=== PATIENT | female | born 1960 | race Caucasian/White ===

== ENCOUNTER → 2020-12-25 09:37 | Outpatient (BNVA) | payer OTHER, SELFPAY | PROVIDERS: Visit Provider Physician Assistant | DX: M77.10 Lateral epicondylitis, unspecified elbow (principal) | CPT/HCPCS: 20551; J1020 ==

== ENCOUNTER 2022-08-01 16:08 | Inpatient (IN) | payer OTHER, SELFPAY ==
[2022-08-01] VITALS (9 sets, daily range): BP systolic 130–173; BP diastolic 74–109; PULSE 74–117; RESP 15–94; TEMP 37.2–37.3; O2SAT 94–98; BMI 34.3
--- NOTE | ~2022-08-01 | XR_ITS ---
EXAMINATION: XR CHEST CLINICAL INFORMATION: Chest pain COMPARISON: Chest x-ray 11/24/2010 TECHNIQUE: 2 views of the chest were obtained. FINDINGS: Lungs are clear. No pulmonary vascular congestion. There is no pleural effusion. The heart size is normal. The cardiac and mediastinal contours are normal. There are multilevel degenerative changes of dorsal spine. Surgical clips in the upper abdomen XR/XR chest 2V IMPRESSION: Unremarkable examination.
--- NOTE | 2022-08-01 16:17 | ECG_ITS ---
Test Reason : CHEST PAIN Blood Pressure : / mmHG Vent. Rate : 088 BPM Atrial Rate : 088 BPM P-R Int : 156 ms QRS Dur : 082 ms QT Int : 372 ms P-R-T Axes : 054 048 044 degrees QTc Int : 450 ms Normal sinus rhythm Normal ECG When compared with ECG of 24-NOV-2010 19:00, ST no longer elevated in Inferior leads Referred By: Emmy Ewing Electronically Signed By:KERI POOLE MD
--- NOTE | 2022-08-01 16:18 | ED_ITS ---
HPI - Chest Pain General Chief Complaint: Chest Pain <ZIA Castrejon - Last Filed: 08/01/22 22:10> Stated Complaint: chest pain <ZIA Castrejon - Last Filed: 08/01/22 22:10> Time Seen by Provider: 08/01/22 17:19 <ZIA Castrejon - Last Filed: 08/01/22 22:10> Source: patient <ZIA Castrejon Last Filed: 08/01/22 22:10> Mode of arrival: ambulatory <ZIA Castrejon - Last Filed: 08/01/22 22:10> Limitations: no limitations <ZIA Castrejon Last Filed: 08/01/22 22:10> History of Present Illness HPI narrative: Patient is a 61 year old assigned female at with a history of high cholesterol presenting to the emergency department today with chest pain. Patient states that over the last 3 days she has had central chest pain that feels like an elephant on her chest. Patient states that her father at 43 f rom a heart attack and her mother had a heart attack at 68. Patient states that she has a history of high cholesterol and was taking medication for it but recently stopped about a month ago. Patient states that the pain in her chest is not getting better even after taking aspirin and tums. Patient denies any dizziness, lightheadedness, abdominal pain, nausea, vomiting, fever, chills, blurry vision, double vision, loss of vision, difficulty breathing, shortness of breath, back pain, night sweats, pain with urination, increased urinary frequency, increased urinary urgency, blood in her urine or stool, syncope or a near syncopal episode, recent trauma or falls, bowel incontinence, bladder incon tinence, bowel retention, bladder retention, or any other complaints at this time. <ZIA Castrejon - Last Filed: 08/01/22 22:10> Patient is a 61 year old assigned female at with a history of high cholesterol presenting to the emergency department today with chest pain. Patient states that over the last 3 days she has had central chest pain that feels like an elephant on her chest. Patient states that her father at 43 from a heart attack and her mother had a heart attack at 68. Patient states that she has a history of high cholesterol and was taking medication for it but recently stopped about a month ago. Patient states that the pain in her chest is not getting better even after taking aspirin and tums. Patient denies any dizziness, lightheadedness, abdominal pain, nausea, vomiting, fever, chills, blurry vision, double vision, loss of vision, difficulty breathing, shortness of breath, back pain, night sweats, pain with urination, increased urinary frequency, increased urinary urgency, blood in her urine or stool, syncope or a near syncopal episode, recent trauma or falls, bowel incontinence, bladder incontinence, bowel retention, bladder retention, or any other complaints at this time. Dr Powell's Note 61-year-old female, everyday smoker, has not been to a physician in years, c omes in with significant chest pressure that was intermittent yesterday and associated with some mild nausea, shortness of breath but denies any fever, chills, vomiting or GI or symptoms. Patient denies any recent travel, calf swelling, and states that today the chest pain changed in became more constant in nature and she states that feels like ?the worst acid reflux she has ever had in her life?. She denies any sore throat, cough and denies any association with deep inspiration or movement. In addition, there is no association with supine or sitting up. <Arianne Powell MD - Last Filed: 08/01/22 21:21> complaint: chest pain <ZIA Castrejon - Last Filed: 08/01/22 22:10> Onset (ago): day(s) (3) <ZIA Castrejon - Last Filed: 08/01/22 22:10> Timing of current episode: constant <ZIA Castrejon - Last Filed: 08/01/22 22:10> Prior episodes: No <ZIA Castrejon - Last Filed: 08/01/22 22:10> Onset: during rest <ZIA Castrejon Last Filed: 08/01/22 22:10> Pain location: substernal <ZIA Castrejon - Last Filed: 08/01/22 22:10> Pain radiation: none <ZIA Castrejon Last Filed: 08/01/22 22:10> Severity: mild <ZIA Castrejon - Last Filed: 08/01/22 22:10> Pain scale (0-10): 5 <ZIA Castrejon - Last Filed: 08/01/22 22:10> Quality: heaviness <ZIA Castrejon - Last Filed: 08/01/22 22:10> Relieving factors: nothing <ZIA Castrejon - Last Filed: 08/01/22 22:10> Exacerbating factors: nothing <ZIA Castrejon - Last Filed: 08/01/22 22:10> Treatment prior to arrival: aspirin <ZIA Castrejon - Last Filed: 08/01/22 22:10> Risk Factors Coronary artery disease risk factors: smoking history, hyperlipidemia and family history of CAD before age 50 <ZIA Castrejon - Last Filed: 08/01/22 22:10> Related Data Home Medications: Home Medications Medication Instructions Recorded Confirmed atorvastatin 10 mg tablet 10 mg PO DAILY 12/25/20 08/01/22 <ZIA Castrejon - Last Filed: 08/01/22 22:10> Allergies/Adverse Reactions: Allergies Allergy/AdvReac Type Severity Reaction Status Date / Time No Known Allergies Allergy Mild UNKNOWN Verified 12/25/20 09:49 <ZIA Castrejon - Last Filed: 08/01/22 22:10> Review of Systems Review of Systems: Pertinent positives and negatives as stated in HPI 10 point review of systems is otherwise negative. <Arianne Powell MD - Last Filed: 08/01/22 21:21> Constitutional: Constitutional: Reports no additional constitutional complaints, Denies chills, Denies fever(s) and Denies night sweats <ZIA Castrejon - Last Filed: 08/01/22 22:10> Eyes: Eyes: Reports no additional eye complaints, Denies blurry vision, Denies change in vision, Denies diplopia, Denies eye discharge, Denies loss of vision and Denies eye pain <ZIA Castrejon - Last Filed: 08/01/22 22:10> ENT: Denies dizziness <ZIA Castrejon - Last Filed: 08/01/22 22:10> Cardiovascular: Cardiovascular: Reports no additional cardiovascular complai nts, Reports chest pain, Denies lightheadedness, Denies Loss of Consciousness and Denies dyspnea <ZIA Castrejon - Last Filed: 08/01/22 22:10> Respiratory: Respiratory: Reports no additional respiratory complaints and Denies dyspnea <ZIA Castrejon - Last Filed: 08/01/22 22:10> Gastrointestinal: Gastrointestinal: Reports no additional gastrointestinal complaints, Denies abdominal pain, Denies melena, Denies hematochezia, Denies change in bowel habits and Denies change in stool character <ZIA Castrejon - Last Filed: 08/01/22 22:10> Genitourinary: Genitourinary: Denies hematuria, Denies urinary frequency, Denies dysuria, Denies urinary incontinence, Denies urinary hesitancy and Denies urinary urgency <ZIA Castrejon - Last Filed: 08/01/22 22:10> Musculoskeletal: Musculoskeletal: Reports no additional musculoskeletal complaints, Denies numbness and Denies tingling <ZIA Castrejon - Last Filed: 08/01/22 22:10> Neurologic: Denies dizziness, Denies loss of vision, Denies numbness and Denies tingling <ZIA Castrejon - Last Filed: 08/01/22 22:10> Psychiatric: Psychiatric: Reports no additional psychiatric complaints <ZIA Castrejon - Last Filed: 08/01/22 22:10> Endocrine: Endocrine: Reports no additional endocrine complaints <ZIA Castrejon - Last Filed: 08/01/22 22:10> Hematologic/Lymphatic: Hematologic/Lymphatic: Reports no additional hematologic/lymphatic complaints <ZIA Castrejon - Last Filed: 08/01/22 22:10> Allergic/Immunologic: Allergic/Immunologic: Reports no additional allergic/immunologic complaints <ZIA Castrejon - Last Filed: 08/01/22 22:10> PMFSH Past Medical History Attestation statement: The following information was validated with the patient. 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 GENERAL: Well developed, well nourished, in no acute distress. HEAD: Normocephalic/atraumatic EYES: PERRLA, EOMI EARS: Ext canals without abnormality OROPHARYNX: no oral lesions noted, posterior pharynx clear LUNGS: Normal breath sounds. No adventitious sounds or accessory muscle use. SpO2<98> CARDIOVASCULAR: Regular rate and rhythm without noted murmurs, no JVD or lower extremity edema. ABDOMEN: Soft, non-tender, non-distended with bowel sounds. MUSCULOSKELETAL: No tenderness, deformities, or effusions noted on gross in spection. EXTREMITIES: No cyanosis, clubbing or edema. SKIN: Inspection of the skin reveals no rashes NEUROLOGIC: Alert and oriented x 4. Strength and sensation to light touch were grossly intact x 4. <Arianne Powell MD - Last Filed: 08/01/22 21:21> Const: General: cooperative, no acute distress, alert and awake <Emmy Ewing PA - Last Filed: 08/01/22 22:10> Nutritional Appearance: well nourished <Emmy Ewing PA - Last Filed: 08/01/22 22:10> Orientation/consciousness: patient oriented x3 <Emmy Ewing PA - Last Filed: 08/01/22 22:10> Limitations: no limitations <Emmy Ewing PA - Last Filed: 08/01/22 2 2:10> HEENT: Head: Yes normal to inspection and Yes atraumatic <Emmy Ewing PA - Last Filed: 08/01/22 22:10> Ears: hearing grossly normal bilaterally and external ears normal <Emmy Ewing PA - Last Filed: 08/01/22 22:10> General nose exam: Normal external nose present, no nasal discharge noted and no epistaxis <Emmy Ewing PA - Last Filed: 08/01/22 22:10> Face and sinus: Yes normal facial exam, No abrasion and No laceration <Emmy Ewing PA - Last Filed: 08/01/22 22:10> Mouth: Normal oral and palatal mucosa present, no drooling and no muffled voice <Emmy Ewing PA - Last Filed: 08/01/22 22:10> Eyes: General: appearance normal, both eyes and all related structures <Emmy Ewing PA - Last Filed: 08/01/22 22:10> Periorbital: periorbital findings normal <Emmy Ewing PA - Last Filed: 08/01/22 22:10> Eyelids: Yes eyelids normal <Emmy Ewing PA - Last Filed: 08/01/22 2 2:10> Conjunctivae: conjunctivae normal <Emmy Ewing PA - Last Filed: 08/01/22 22:10> Pupils: Equal, round and reactive pupils present <Emmy Ewing PA - Last Filed: 08/01/22 22:10> EOM: EOMs intact bilaterally <Emmy Ewing PA - Last Filed: 08/01/22 22:10> Neck: Neck: Yes normal visual inspection, Yes full ROM and Yes no lymphadenopathy <Emmy Ewing PA - Last Filed: 08/01/22 22:10> Chest: Chest palpation & inspection: normal inspection of the chest <Fortino Ewing PA - Last Filed: 08/01/22 22:10> Resp: Effort & Inspection: normal respiratory effort and able to speak in complete sentences <Emmy Ewing PA - Last Filed: 08/01/22 22:10> Auscultation: clear to auscultation bilaterally <Emmy Ewing PA - Last Filed: 08/01/22 22:10> Cardio: Rate: regular rate <Emmy Ewing PA - Last Filed: 08/01/22 22:10> Rhythm: regular rhythm <Emmy Ewing PA - Last Filed: 08/01/22 22:10> GI: Inspection: Yes normal to inspection <Emmy Ewing PA - Last Filed: 08/01/22 22:10> Neuro: General: patient oriented x3 and moves all extremities <Emmy Ewing PA - Last Filed: 08/01/22 22:10> Cranial nerves: Yes Equal, round and reactive pupils present <Emmy Ewing PA - Last Filed: 08/01/22 22:10> Cognition (Neuro): normal cognition <Emmy Ewing PA - Last Filed: 08/01/22 22:10> Motor exam (neuro): 5/5 motor strength present throughout <Emmy Ewing PA - Last Filed: 08/01/22 22:10> Sensory Exam: Normal double simultaneous stimulation for sensation <Emmy Ewing PA - Last Filed: 08/01/22 22:10> Coordination: [id number] test normal <Emmy Ewing PA - Last Filed: 08/01/22 22:10> Extrem: General: Yes normal to inspection, Yes full ROM and Yes capillary refill normal <Emmy Ewing PA - Last Filed: 08/01/22 22:10> Psych: Appearance: grossly normal <Emmy Ewing PA - Last Filed: 08/01/22 22:10> Mental Status: mental status grossly normal <Emmy Ewing PA - Last Filed: 08/01/22 22:10> Affect: normal affect <ZIA Castrejon - Last Filed: 08/01/22 22:10> Attitude: cooperative <ZIA Castrejon - Last Filed: 08/01/22 22:10> Thought process: Normal thought process present <ZIA Castrejon - Last Filed: 08/01/22 22:10> Thought content: Normal thought content present <ZIA Castrejon - Last Filed: 08/01/22 22:10> Insight: Good insight present (Psych) <ZIA Castrejon - Last Filed: 08/01/22 22:10> Course Course Course Narrative: RME completed at 1623 by Emmy Ewing PA-C. Patient's EKG shows no evidence of STEMI. CBC, CMP, Troponin, and CXR ordered. Patient to be placed back in the waiting room pending availability within the department to be seen and results of all mentioned testing. <ZIA Castrejon - Last Filed: 08/01/22 22:10> RME completed at 1623 by Emmy Ewing PA-C. Patient's EKG shows no evidence of STEMI. CBC, CMP, Troponin, and CXR ordered. Patient to be placed b ack in the waiting room pending availability within the department to be seen and results of all mentioned testing. 2007: 61-year-old female with history and clinical presentation concerning for suspected NSTEMI, received aspirin, and I discussed the case with Dr. Moody who agrees with administration of heparin. Review of all investigations consistent with NSTEMI/ACS and patient will receive treatment with heparin, on re-evaluation after aspirin her chest pain has significantly improved and she remains hemodynamically stable. I discussed the case with the inpatient hospitalist who was accepting admission. <Arianne Powell MD - Last Filed: 08/01/22 21:21> Medications Administered Generic Name Dose Route Start Last Admin Trade Name Freq PRN Reason Stop Dose Admin Heparin Sodium/Sodium Chloride 25,000 unit in 250 mls @ 0 mls/hr 08/01/22 20:45 08/01/22 21:05 Heparin Sodium,Porcine/1/2ns IVCONT 10 units/kg/hr .Q0M BRYON 9.95 mls/hr Administration Protocol Per Protocol Discontinued Medications Generic Name Dose Route Start Last Admin Trade Name Freq PRN Reason Stop Dose Admin Aspirin 324 mg 08/01/22 19:47 08/01/22 20:03 Aspirin 81 Mg Tab.Chew PO 08/01/22 19:48 324 mg ONCE ONE Administration Heparin Sodium (Porcine) 4,000 unit 08/01/22 20:31 08/01/22 20:53 Heparin Sodium,Porcine 5,000 Unit/Ml Vial IVPUSH 08/01/22 20:32 4,000 unit ONCE ONE Administration <ZIA Castrejon - Last Filed: 08/01/22 22:10> Medications Administered Generic Name Dose Route Start Last Admin Trade Name Freq PRN Reason Stop Dose Admin Heparin Sodium/Sodium Chloride 25,000 unit in 250 mls @ 0 mls/hr 08/01/22 20:45 08/01/22 21:05 Heparin Sodium,Porcine/1/2ns IVCONT 10 units/kg/hr .Q0M BRYON 9.95 mls/hr Administration Protocol Per Protocol Discontinued Medications Generic Name Dose Route Start Last Admin Trade Name Freq PRN Reason Stop Dose Admin Aspirin 324 mg 08/01/22 19:47 08/01/22 20:03 Aspirin 81 Mg Tab.Chew PO 08/01/22 19:48 324 mg ONCE ONE Administration Heparin Sodium (Porcine) 4,000 unit 08/01/22 20:31 08/01/22 20:53 Heparin Sodium,Porcine 5,000 Unit/Ml Vial IVPUSH 08/01/22 20:32 4,000 unit ONCE ONE Administration <Arianne Powell MD - Last Filed: 08/01/22 21:21> MDM - Chest Pain Medical Records Data Attestation: I reviewed the patient's medical records. <ZIA Castrejon - Last Filed: 08/01/22 22:10> Lab Data Attestation: I reviewed the patient's lab results. <ZIA Castrejon - Last Filed: 08/01/22 22:10> Result diagrams: : 08/01/22 20:47 08/01/22 16:29 <ZIA aCstrejon - Last Filed: 08/01/22 22:10> Labs: Lab Results 08/01/22 08/01/22 08/01/22 Range/Units 16:29 16:29 16:29 WBC 9.5 (4.8-10.8) X10*3/uL RBC 4.74 (4.20-5.50) X10*6/uL Hgb 14.8 (12.0-16.0) g/dl Hct 44.6 (37.0-47.0) % MCV 94.1 (80.0-98.0) fL MCH 31.2 (27.0-33.0) pg MCHC 33.2 (31.0-35.0) g/dl RDW 12.4 (11.0-16.0) % Plt Count 316 (160-400) X10*3/uL MPV 9.4 (9.4-12.3) fL Immature Gran % (Auto) 0.3 (0.0-0.4) % Neut % (Auto) 80.3 H (45-73) % Lymph % (Auto) 11.6 L (20-40) % Brooks % (Auto) 6.8 (2-11) % Eos % (Auto) 0.7 (0-4) % Baso % (Auto) 0.3 (0-2) % Lymph # (Auto) 1.1 L (1.2-4.9) X10*3/uL Brooks # (Auto) 0.6 (0.1-1.2) X10*3/uL Eos # (Auto) 0.1 (0.0-0.4) X10*3/uL Baso # (Auto) 0.0 (0.0-0.2) X10*3/uL Abs Immat Gran (auto) 0.03 (0.00-0.03) X10*3/uL Absolute Neuts (auto) 7.6 (2.0-8.3) x10*3/uL Absolute Nucleated RBC 0.000 (0.0-0.012) X10*3/uL Nucleated RBC % (auto) 0.0 (0.0-0.2) /100WBC PT (10.0-13.1) SEC INR (0.9-1.1) APTT (26.0-36.4) SEC aPTT Heparin Protocol (53-77.9) SEC D-Dimer High Sensitivty < 150 NG/ML Sodium 137 (135-145) mmol/L Potassium 4.2 (3.3-5.1) mmol/L Chloride 98 (96-108) mmol/L Carbon Dioxide 24 (22-29) mmol/L Anion Gap 19 (12-20) BUN 8 L (9-16) mg/dL Creatinine 0.71 (0.5-1.4) mg/dL Estim Creat Clear Calc 102.3 Estimated GFR > 60 Random Glucose 152 H (60-115) mg/dL Calcium 9.4 (8.4-10.2) mg/dL Magnesium 2.1 (1.6-2.6) mg/dL Total Bilirubin 0.5 (0.0-1.0) mg/dL AST 17 (5-31) U/L ALT 24 (0-31) U/L Alkaline Phosphatase 115 (39-117) U/L Troponin I High Sens (<3.5-17.0) ng/L Total Protein 7.4 (6.5-8.0) g/dL Albumin 4.2 (3.5-5.0) g/dL 08/01/22 08/01/22 08/01/22 Range/Units 16:30 18:44 18:44 WBC (4.8-10.8) X10*3/uL RBC (4.20-5.50) X10*6/uL Hgb (12.0-16.0) g/dl Hct (37.0-47.0) % MCV (80.0-98.0) fL MCH (27.0-33.0) pg MCHC (31.0-35.0) g/dl RDW (11.0-16.0) % Plt Count (160-400) X10*3/uL MPV (9.4-12.3) fL Immature Gran % (Auto) (0.0-0.4) % Neut % (Auto) (45-73) % Lymph % (Auto) (20-40) % Brooks % (Auto) (2-11) % Eos % (Auto) (0-4) % Baso % (Auto) (0-2) % Lymph # (Auto) (1.2-4.9) X10*3/uL Brooks # (Auto) (0.1-1.2) X10*3/uL Eos # (Auto) (0.0-0.4) X10*3/uL Baso # (Auto) (0.0-0.2) X10*3/uL Abs Immat Gran (auto) (0.00-0.03) X10*3/uL Absolute Neuts (auto) (2.0-8.3) x10*3/uL Absolute Nucleated RBC (0.0-0.012) X10*3/uL Nucleated RBC % (auto) (0.0-0.2) /100WBC PT 11.5 (10.0-13.1) SEC INR 1.0 (0.9-1.1) APTT 30.4 (26.0-36.4) SEC aPTT Heparin Protocol (53-77.9) SEC D-Dimer High Sensitivty NG/ML Sodium (135-145) mmol/L Potassium (3.3-5.1) mmol/L Chloride (96-108) mmol/L Carbon Dioxide (22-29) mmol/L Anion Gap (12-20) BUN (9-16) mg/dL Creatinine (0.5-1.4) mg/dL Estim Creat Clear Calc Estimated GFR Random Glucose (60-115) mg/dL Calcium (8.4-10.2) mg/dL Magnesium (1.6-2.6) mg/dL Total Bilirubin (0.0-1.0) mg/dL AST (5-31) U/L ALT (0-31) U/L Alkaline Phosphatase (39-117) U/L Troponin I High Sens 28.1 H 113.7 H* D (<3.5-17.0) ng/L Total Protein (6.5-8.0) g/dL Albumin (3.5-5.0) g/dL 08/01/22 08/01/22 08/01/22 Range/Units 20:02 20:47 20:47 WBC 10.9 H (4.8-10.8) X10*3/uL RBC 4.82 (4.20-5.50) X10*6/uL Hgb 15.1 (12.0-16.0) g/dl Hct 44.6 (37.0-47.0) % MCV 92.5 (80.0-98.0) fL MCH 31.3 (27.0-33.0) pg MCHC 33.9 (31.0-35.0) g/dl RDW 12.4 (11.0-16.0) % Plt Count 343 (160-400) X10*3/uL MPV 9.5 (9.4-12.3) fL Immature Gran % (Auto) (0.0-0.4) % Neut % (Auto) (45-73) % Lymph % (Auto) (20-40) % Brooks % (Auto) (2-11) % Eos % (Auto) (0-4) % Baso % (Auto) (0-2) % Lymph # (Auto) (1.2-4.9) X10*3/uL Brooks # (Auto) (0.1-1.2) X10*3/uL Eos # (Auto) (0.0-0.4) X10*3/uL Baso # (Auto) (0.0-0.2) X10*3/uL Abs Immat Gran (auto) (0.00-0.03) X10*3/uL Absolute Neuts (auto) (2.0-8.3) x10*3/uL Absolute Nucleated RBC 0.000 (0.0-0.012) X10*3/uL Nucleated RBC % (auto) 0.0 (0.0-0.2) /100WBC PT 11.5 (10.0-13.1) SEC INR 1.0 (0.9-1.1) APTT (26.0-36.4) SEC aPTT Heparin Protocol 29.9 L (53-77.9) SEC D-Dimer High Sensitivty NG/ML Sodium (135-145) mmol/L Potassium (3.3-5.1) mmol/L Chloride (96-108) mmol/L Carbon Dioxide (22-29) mmol/L Anion Gap (12-20) BUN (9-16) mg/dL Creatinine (0.5-1.4) mg/dL Estim Creat Clear Calc Estimated GFR Random Glucose (60-115) mg/dL Calcium (8.4-10.2) mg/dL Magnesium (1.6-2.6) mg/dL Total Bilirubin (0.0-1.0) mg/dL AST (5-31) U/L ALT (0-31) U/L Alkaline Phosphatase (39-117) U/L Troponin I High Sens 347.8 H* D (<3.5-17.0) ng/L Total Protein (6.5-8.0) g/dL Albumin (3.5-5.0) g/dL <ZIA Castrjeon - Last Filed: 08/01/22 22:10> Lab Results 08/01/22 08/01/22 08/01/22 Range/Units 16:29 16:29 16:29 WBC 9.5 (4.8-10.8) X10*3/uL RBC 4.74 (4.20-5.50) X10*6/uL Hgb 14.8 (12.0-16.0) g/dl Hct 44.6 (37.0-47.0) % MCV 94.1 (80.0-98.0) fL MCH 31.2 (27.0-33.0) pg MCHC 33.2 (31.0-35.0) g/dl RDW 12.4 (11.0-16.0) % Plt Count 316 (160-400) X10*3/uL MPV 9.4 (9.4-12.3) fL Immature Gran % (Auto) 0.3 (0.0-0.4) % Neut % (Auto) 80.3 H (45-73) % Lymph % (Auto) 11.6 L (20-40) % Brooks % (Auto) 6.8 (2-11) % Eos % (Auto) 0.7 (0-4) % Baso % (Auto) 0.3 (0-2) % Lymph # (Auto) 1.1 L (1.2-4.9) X10*3/uL Brooks # (Auto) 0.6 (0.1-1.2) X10*3/uL Eos # (Auto) 0.1 (0.0-0.4) X10*3/uL Baso # (Auto) 0.0 (0.0-0.2) X10*3/uL Abs Immat Gran (auto) 0.03 (0.00-0.03) X10*3/uL Absolute Neuts (auto) 7.6 (2.0-8.3) x10*3/uL Absolute Nucleated RBC 0.000 (0.0-0.012) X10*3/uL Nucleated RBC % (auto) 0.0 (0.0-0.2) /100WBC PT (10.0-13.1) SEC INR (0.9-1.1) APTT (26.0-36.4) SEC aPTT Heparin Protocol (53-77.9) SEC D-Dimer High Sensitivty < 150 NG/ML Sodium 137 (135-145) mmol/L Potassium 4.2 (3.3-5.1) mmol/L Chloride 98 (96-108) mmol/L Carbon Dioxide 24 (22-29) mmol/L Anion Gap 19 (12-20) BUN 8 L (9-16) mg/dL Creatinine 0.71 (0.5-1.4) mg/dL Estim Creat Clear Calc 102.3 Estimated GFR > 60 Random Glucose 152 H (60-115) mg/dL Calcium 9.4 (8.4-10.2) mg/dL Magnesium 2.1 (1.6-2.6) mg/dL Total Bilirubin 0.5 (0.0-1.0) mg/dL AST 17 (5-31) U/L ALT 24 (0-31) U/L Alkaline Phosphatase 115 (39-117) U/L Troponin I High Sens (<3.5-17.0) ng/L Total Protein 7.4 (6.5-8.0) g/dL Albumin 4.2 (3.5-5.0) g/dL 08/01/22 08/01/22 08/01/22 Range/Units 16:30 18:44 18:44 WBC (4.8-10.8) X10*3/uL RBC (4.20-5.50) X10*6/uL Hgb (12.0-16.0) g/dl Hct (37.0-47.0) % MCV (80.0-98.0) fL MCH (27.0-33.0) pg MCHC (31.0-35.0) g/dl RDW (11.0-16.0) % Plt Count (160-400) X10*3/uL MPV (9.4-12.3) fL Immature Gran % (Auto) (0.0-0.4) % Neut % (Auto) (45-73) % Lymph % (Auto) (20-40) % Brooks % (Auto) (2-11) % Eos % (Auto) (0-4) % Baso % (Auto) (0-2) % Lymph # (Auto) (1.2-4.9) X10*3/uL Brooks # (Auto) (0.1-1.2) X10*3/uL Eos # (Auto) (0.0-0.4) X10*3/uL Baso # (Auto) (0.0-0.2) X10*3/uL Abs Immat Gran (auto) (0.00-0.03) X10*3/uL Absolute Neuts (auto) (2.0-8.3) x10*3/uL Absolute Nucleated RBC (0.0-0.012) X10*3/uL Nucleated RBC % (auto) (0.0-0.2) /100WBC PT 11.5 (10.0-13.1) SEC INR 1.0 (0.9-1.1) APTT 30.4 (26.0-36.4) SEC aPTT Heparin Protocol (53-77.9) SEC D-Dimer High Sensitivty NG/ML Sodium (135-145) mmol/L Potassium (3.3-5.1) mmol/L Chloride (96-108) mmol/L Carbon Dioxide (22-29) mmol/L Anion Gap (12-20) BUN (9-16) mg/dL Creatinine (0.5-1.4) mg/dL Estim Creat Clear Calc Estimated GFR Random Glucose (60-115) mg/dL Calcium (8.4-10.2) mg/dL Magnesium (1.6-2.6) mg/dL Total Bilirubin (0.0-1.0) mg/dL AST (5-31) U/L ALT (0-31) U/L Alkaline Phosphatase (39-117) U/L Troponin I High Sens 28.1 H 113.7 H* D (<3.5-17.0) ng/L Total Protein (6.5-8.0) g/dL Albumin (3.5-5.0) g/dL 08/01/22 08/01/22 08/01/22 Range/Units 20:02 20:47 20:47 WBC 10.9 H (4.8-10.8) X10*3/uL RBC 4.82 (4.20-5.50) X10*6/uL Hgb 15.1 (12.0-16.0) g/dl Hct 44.6 (37.0-47.0) % MCV 92.5 (80.0-98.0) fL MCH 31.3 (27.0-33.0) pg MCHC 33.9 (31.0-35.0) g/dl RDW 12.4 (11.0-16.0) % Plt Count 343 (160-400) X10*3/uL MPV 9.5 (9.4-12.3) fL Immature Gran % (Auto) (0.0-0.4) % Neut % (Auto) (45-73) % Lymph % (Auto) (20-40) % Brooks % (Auto) (2-11) % Eos % (Auto) (0-4) % Baso % (Auto) (0-2) % Lymph # (Auto) (1.2-4.9) X10*3/uL Brooks # (Auto) (0.1-1.2) X10*3/uL Eos # (Auto) (0.0-0.4) X10*3/uL Baso # (Auto) (0.0-0.2) X10*3/uL Abs Immat Gran (auto) (0.00-0.03) X10*3/uL Absolute Neuts (auto) (2.0-8.3) x10*3/uL Absolute Nucleated RBC 0.000 (0.0-0.012) X10*3/uL Nucleated RBC % (auto) 0.0 (0.0-0.2) /100WBC PT 11.5 (10.0-13.1) SEC INR 1.0 (0.9-1.1) APTT (26.0-36.4) SEC aPTT Heparin Protocol 29.9 L (53-77.9) SEC D-Dimer High Sensitivty NG/ML Sodium (135-145) mmol/L Potassium (3.3-5.1) mmol/L Chloride (96-108) mmol/L Carbon Dioxide (22-29) mmol/L Anion Gap (12-20) BUN (9-16) mg/dL Creatinine (0.5-1.4) mg/dL Estim Creat Clear Calc Estimated GFR Random Glucose (60-115) mg/dL Calcium (8.4-10.2) mg/dL Magnesium (1.6-2.6) mg/dL Total Bilirubin (0.0-1.0) mg/dL AST (5-31) U/L ALT (0-31) U/L Alkaline Phosphatase (39-117) U/L Troponin I High Sens 347.8 H* D (<3.5-17.0) ng/L Total Protein (6.5-8.0) g/dL Albumin (3.5-5.0) g/dL <Arianne Powell MD - Last Filed: 08/01/22 21:21> Imaging Data Chest x-ray: Attestation: I personally reviewed and interpreted this imaging study as follows: <ZIA Castrejon - Last Filed: 08/01/22 22:10> My impression: No acute process. <ZIA Castrejon - Last Filed: 08/01/22 22:10> Radiologist's impression: EXAMINATION: XR CHEST CLINICAL INFORMATION: Chest pain COMPARISON: Chest x-ray 11/24/2010 TECHNIQUE: 2 views of the chest were obtained. FINDINGS: ?Lungs are clear. No pulmonary vascular congestion. There is no pleural effusion. The heart size is normal. The cardiac and mediastinal contours are normal. There are multilevel degenerative changes of dorsal spine.? ? Surgical clips in the upper abdomen XR/XR chest 2V IMPRESSION: Unremarkable examination. Dictated By: Scott Patel MD Signed By: Electronically signed by Scott Patel MD 08/01/22 [id number] <ZIA Castrejon - Last Filed: 08/01/22 22:10> ECG Data ECG #1: Attestation: I personally reviewed and interpreted this ECG as follows: <ZIA Castrejon - Last Filed: 08/01/22 22:10> ECG interpretation date: 08/01/22 <ZIA Castrejon - Last Filed: 08/01/22 22:10> ECG interpretation time: 16:12 <ZIA Castrejon - Last Filed: 08/01/22 22:10> Prior ECG tracings: available for review <ZIA Castrejon - Last Filed: 08/01/22 22:10> Interpretation: EXAMINATION: XR CHEST CLINICAL INFORMATION: Chest pain COMPARISON: Chest x-ray 11/24/2010 TECHNIQUE: 2 views of the chest were obtained. FINDINGS: ?Lungs are clear. No pulmonary vascular congestion. There is no pleural effusion. The heart size is normal. The cardiac and mediastinal contours are normal. There are multilevel degenerative changes of dorsal spine.? ? Surgical clips in the upper abdomen XR/XR chest 2V IMPRESSION: Unremarkable examination. Dictated By: Scott Patel MD Signed By: Electronically signed by Scott Patel MD 08/01/22 [id number] <ZIA Castrejon - Last Filed: 08/01/22 22:10> Critical Care Time Critical Care Time Critical Care Time: Yes <Arianne Powell MD - Last Filed: 08/01/22 21:21> Total Critical Care Time: 30 <Arianne Powell MD - Last Filed: 08/01/22 21:21> Attestation: I personally attest to this time spent taking care of the patient. <Arianne Powell MD - Last Filed: 08/01/22 21:21> Discharge Plan Discharge Clinical Impression: Non-ST elevation SD (NSTEMI) <ZIA Castrejon - Last Filed: 08/01/22 22:10> Patient Disposition: Admitted As Inpatient <ZIA Castrejon - Last Filed: 08/01/22 22:10>
[2022-08-01 16:36] LABS: MANUAL DIFF FLAG NO
[2022-08-01 16:38] LABS: Basophils Percent Auto 0.3 % (0-2); Eosinophils Absolute Auto 0.1 X10*3/uL (0.0-0.4); Eosinophils Percent Auto 0.7 % (0-4); Hematocrit 44.6 % (37.0-47.0); Hemoglobin 14.8 g/dl (12.0-16.0); Imm Gran Abs Auto 0.03 X10*3/uL (0.00-0.03); Imm Gran Pct Auto 0.3 % (0.0-0.4); Lymphocytes Absolute Auto 1.1 X10*3/uL (1.2-4.9); Lymphocytes Percent Auto 11.6 % (20-40); Mean Corpuscular HGB Conc 33.2 g/dl (31.0-35.0); Mean Corpuscular Hemoglobin 31.2 pg (27.0-33.0); Mean Corpuscular Volume 94.1 fL (80.0-98.0); Mean Platelet Volume 9.4 fL (9.4-12.3); Monocytes Absolute Auto 0.6 X10*3/uL (0.1-1.2); Monocytes Percent Auto 6.8 % (2-11); Neutrophils Absolute Auto 7.6 x10*3/uL (2.0-8.3); Neutrophils Percent Auto 80.3 % (45-73); Platelet Count 316 X10*3/uL (160-400); Red Blood Count 4.74 X10*6/uL (4.20-5.50); Red Cell Distribution Width 12.4 % (11.0-16.0); White Blood Count 9.5 X10*3/uL (4.8-10.8)
[2022-08-01 16:51] LABS: D Dimer High Sensitivity < 150 NG/ML
[2022-08-01 16:56] LABS: Alanine Aminotransferase 24 U/L (0-31); Albumin Level 4.2 g/dL (3.5-5.0); Alkaline Phosphatase 115 U/L (39-117); Anion Gap 19 (12-20); Aspartate Amino Transferase 17 U/L (5-31); Bilirubin Total 0.5 mg/dL (0.0-1.0); Blood Urea Nitrogen 8 mg/dL (9-16); Calcium 9.4 mg/dL (8.4-10.2); Carbon Dioxide 24 mmol/L (22-29); Chloride 98 mmol/L (96-108); Creatinine Clr Calc Pharmacy 102.3; Estimated Glomerular Filt Rate > 60; Glucose Random 152 mg/dL (60-115); Magnesium 2.1 mg/dL (1.6-2.6); Potassium 4.2 mmol/L (3.3-5.1); Sodium 137 mmol/L (135-145); Total Protein 7.4 g/dL (6.5-8.0)
[2022-08-01 17:03] LABS: Troponin-I High Sensitivity 28.1 ng/L (<3.5-17.0)
--- NOTE | 2022-08-01 17:31 | PC.NURSE ---
patient a/ox4 pearrla . heart rate regular at 73 beats per minute . lungs clear throughout . skin pink warm and dry . patient c/o of cheat pain / discomfort that has increased over the lasts three days . Today she had an episode of dizziness and sweatiness with increased pain that made her feel, like she need to be seen . Currently she has a heaviness /pressure feeling 6 out of 10 level of pain on her chest . patient is on latin professor . Two IV placed bilaterally in A.C . patient aware of plan of care.
[2022-08-01 19:03] LABS: Prothrombin Time 11.5 SEC (10.0-13.1)
[2022-08-01 19:40] LABS: Troponin-I High Sensitivity 113.7 ng/L (<3.5-17.0)
--- NOTE | 2022-08-01 19:48 | ECG_ITS ---
Test Reason : cp Blood Pressure : / mmHG Vent. Rate : 081 BPM Atrial Rate : 081 BPM P-R Int : 152 ms QRS Dur : 078 ms QT Int : 372 ms P-R-T Axes : 059 052 030 degrees QTc Int : 432 ms Normal sinus rhythm Normal ECG When compared with ECG of 01-AUG-2022 16:12, No significant change was found Referred By: Antonia Ko Electronically Signed By:KERI POOLE MD
[2022-08-01] MEDS: Aspirin 81 MG TAB.CHEW 324 MG PO (20:03)
[2022-08-01 20:10] LABS: Partial Thromboplastin Time 30.4 SEC (26.0-36.4)
--- NOTE | 2022-08-01 20:13 | PC.NURSE ---
pt bed weight 99.5 kg
[2022-08-01 20:31] LABS: Troponin-I High Sensitivity 347.8 ng/L (<3.5-17.0)
--- NOTE | 2022-08-01 20:45 | PC.NURSE ---
pt feeling nausea no vomiting after recieiving the asa. pain level unchanged during this event 01/28. additional labs being drawn at this time. pt is awake alert and oriented x3 skin pink warm and dry but still having chest pain/pressure. md aware.
[2022-08-01] MEDS: Heparin Sodium,Porcine 5,000 UNIT/ML VIAL 4000 UNIT IVPUSH (20:53)
[2022-08-01 20:58] LABS: Hematocrit 44.6 % (37.0-47.0); Hemoglobin 15.1 g/dl (12.0-16.0); Mean Corpuscular HGB Conc 33.9 g/dl (31.0-35.0); Mean Corpuscular Hemoglobin 31.3 pg (27.0-33.0); Mean Corpuscular Volume 92.5 fL (80.0-98.0); Mean Platelet Volume 9.5 fL (9.4-12.3); Platelet Count 343 X10*3/uL (160-400); Red Blood Count 4.82 X10*6/uL (4.20-5.50); Red Cell Distribution Width 12.4 % (11.0-16.0); White Blood Count 10.9 X10*3/uL (4.8-10.8)
[2022-08-01 21:04] LABS: Prothrombin Time 11.5 SEC (10.0-13.1)
[2022-08-01] MEDS: Heparin Sodium,Porcine/1/2NS 25,000 UNIT/250 ML IV.SOLN 9.95 UNIT IVCONT (21:05)
[2022-08-01 21:06] LABS: PTT Heparin Drip 29.9 SEC (53-77.9)
--- NOTE | 2022-08-01 21:13 | PC.NURSE ---
pharmacy called and rate for heparin drip reviewed and pt is at 10 m.l/hr.
--- NOTE | 2022-08-01 21:21 | PHA.MEDREC ---
Pharmacy Consult ? Medication Reconciliation Pharmacy has completed the medication reconciliation.
[2022-08-01 22:08] LABS: Influenza A PCR NEGATIVE (Negative); Influenza B PCR NEGATIVE (Negative); Resp Syncy Virus RNA Qual PCR NEGATIVE (Negative); SARS COV2 PCR INHOUSE NEGATIVE (Negative)
--- NOTE | 2022-08-01 22:39 | PM.IMHP ---
History of Present Illness Date of Service: 08/01/22 Chief Complaint: Chest Pain This is a 61-year-old female with pertinent history of mixed hyperlipidemia, tobacco use disorder who presents to the emergency department for evaluation of chest discomfort. Patient states over the last 2 days she has been having intermittent chest discomfort, nonradiating, midsternal. It feels like an elephant is sitting on the chest. Unable to say if the chest discomfort is better with rest and worse with ambulation. Patient took Tums for it without relief. Had associated nausea. Does have occasional symptoms of gastroesophageal reflux disease. Patient denies fever, chills, shortness of breath, palpitations, abdominal discomfort, changes in urinary or bowel habits. No orthopnea or PND. Her father of OH at 43 and mother had OH at 68. In the emergency department troponin was found to be elevated and Cardiology was consulted. Patient was placed on heparin drip. Review of Systems Constitutional: Constitutional: Reports no additional constitutional complaints Cardiovascular: Cardiovascular: Reports chest pain Respiratory: Respiratory: Reports no additional respiratory complaints Gastrointestinal: Gastrointestinal: Reports no additional gastrointestinal complaints Genitourinary: Genitourinary: Reports no additional female genitourinary complaints Musculoskeletal: Musculoskeletal: Reports no additional musculoskeletal complaints [facility] Medical History (Updated 08/01/22 @ 22:44 by Adri Vásquez MD) High cholesterol Functional capacity: independent ambulation Social History Smoked in Last 30 Days: Yes Advance Directives: No Advance Directives Information Provided: Yes Patient : No Current occupational status: employed 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 [employer] Allergies Allergy/AdvReac Type Severity Reaction Status Date / Time No Known Allergies Allergy Mild UNKNOWN Verified 12/25/20 09:49 Active Medications: Current Medications Acetaminophen (Acetaminophen 325 Mg Tablet) 650 mg PO Q6H PRN PRN Reason: Pain, Mild (Pain Scale 1-3) Atorvastatin Calcium (Atorvastatin Calcium 40 Mg Tablet) 40 mg PO ONCE ONE Stop: 08/01/22 22:38 Clopidogrel Bisulfate (Clopidogrel Bisulfate 75 Mg Tablet) 75 mg PO ONCE ONE Stop: 08/01/22 22:36 Heparin Sodium (Porcine) (Heparin Sodium,Porcine 5,000 Unit/Ml Vial) 4,000 unit 40 unit/kg (4000 unit) IVPUSH PROTOCOL BOLUS PRN; Protocol PRN Reason: 40 unit/kg - Heparin Protocol Heparin Sodium (Porcine) (Heparin Sodium,Porcine 5,000 Unit/Ml Vial) 8,000 unit 80 unit/kg (8000 unit) IVPUSH PROTOCOL BOLUS PRN; Protocol PRN Reason: 80 unit/kg - Heparin Protocol Heparin Sodium/Sodium Chloride (Heparin Sodium,Porcine/1/2ns) 25,000 unit in 250 mls @ 0 mls/hr IVCONT .Q0M [facility]; Protocol Last Admin: 08/01/22 21:05 Dose: 10 units/kg/hr, 9.95 mls/hr Melatonin (Melatonin 3 Mg Tablet) 6 mg PO BEDTIME PRN PRN Reason: Insomnia Metoprolol Tartrate (Metoprolol Tartrate 25 Mg Tablet) 25 mg PO ONCE ONE; Protocol Stop: 08/01/22 22:38 Nitroglycerin (Nitroglycerin 0.4 Mg Tab.Subl) 0.4 mg SUBLINGUAL Q5MX3 PRN PRN Reason: Chest Pain Ondansetron HCl (Ondansetron Hcl 4 Mg/2 Ml Vial) 4 mg IVPUSH Q8H PRN PRN Reason: Nausea and Vomiting Pharmacy Consult (Consult Rx Perform Med Rec) 1 each MISCELLANE ONCE PRN PRN Reason: Consult order Sodium Chloride (0.9 % Sodium Chloride Flush 3 Ml Syringe) 3 ml IVFLUSH QSHIFT [facility] Home Medications Medication Instructions Recorded Confirmed Last Taken Type atorvastatin 10 mg tablet 10 mg PO DAILY 12/25/20 08/01/22 07/11/22 History Physical Exam Vital Signs and Narrative: Vital Signs: Last Vital Signs Temp 99.0 F 08/01/22 22:00 Pulse 91 08/01/22 22:00 Resp 16 08/01/22 22:00 BP 173/92 H 08/01/22 22:00 Pulse Ox 98 08/01/22 22:00 O2 Del Method 08/01/22 22:00 BMI result Body Mass Index 34.3 Middle-aged female lying in bed in no distress Neck supple, no JVD, chest non tender to palpation Regular rate and rhythm, S1-S2 heard Regular breath sounds bilaterally, no wheezing or crackles appreciated Abdomen soft nontender, no guarding, no rigidity Patient is awake, alert and oriented to self, place, time and person ; no focal motor deficit Psych: Normal mood No pedal edema Results Labs CBC and Chem 7: 08/01/22 20:47 08/01/22 16:29 Labs: Laboratory Results - last 24 hr 08/01/22 08/01/22 08/01/22 16:29 16:29 16:29 MCV 94.1 MCH 31.2 MCHC 33.2 RDW 12.4 Plt Count 316 MPV 9.4 Immature Gran % (Auto) 0.3 Neut % (Auto) 80.3 H Lymph % (Auto) 11.6 L [place] % (Auto) 6.8 Eos % (Auto) 0.7 Baso % (Auto) 0.3 Lymph # (Auto) 1.1 L [place] # (Auto) 0.6 Eos # (Auto) 0.1 Baso # (Auto) 0.0 Abs Immat Gran (auto) 0.03 Absolute Neuts (auto) 7.6 Absolute Nucleated RBC 0.000 Nucleated RBC % (auto) 0.0 PT INR APTT aPTT Heparin Protocol D-Dimer High Sensitivty < 150 Anion Gap 19 Estim Creat Clear Calc 102.3 Estimated GFR > 60 Random Glucose 152 H Calcium 9.4 Magnesium 2.1 Total Bilirubin 0.5 AST 17 ALT 24 Alkaline Phosphatase 115 Troponin I High Sens Total Protein 7.4 Albumin 4.2 Influenza Type A (PCR) Influenza Type B (PCR) RSV RNA Qual (PCR) SARS-CoV-2 RNA (RT-PCR) 08/01/22 08/01/22 08/01/22 16:30 18:44 18:44 MCV MCH MCHC RDW Plt Count MPV Immature Gran % (Auto) Neut % (Auto) Lymph % (Auto) [place] % (Auto) Eos % (Auto) Baso % (Auto) Lymph # (Auto) [place] # (Auto) Eos # (Auto) Baso # (Auto) Abs Immat Gran (auto) Absolute Neuts (auto) Absolute Nucleated RBC Nucleated RBC % (auto) PT 11.5 INR 1.0 APTT 30.4 aPTT Heparin Protocol D-Dimer High Sensitivty Anion Gap Estim Creat Clear Calc Estimated GFR Random Glucose Calcium Magnesium Total Bilirubin AST ALT Alkaline Phosphatase Troponin I High Sens 28.1 H 113.7 H* D Total Protein Albumin Influenza Type A (PCR) Influenza Type B (PCR) RSV RNA Qual (PCR) SARS-CoV-2 RNA (RT-PCR) 08/01/22 08/01/22 08/01/22 20:02 20:47 20:47 MCV 92.5 MCH 31.3 MCHC 33.9 RDW 12.4 Plt Count 343 MPV 9.5 Immature Gran % (Auto) Neut % (Auto) Lymph % (Auto) [place] % (Auto) Eos % (Auto) Baso % (Auto) Lymph # (Auto) [place] # (Auto) Eos # (Auto) Baso # (Auto) Abs Immat Gran (auto) Absolute Neuts (auto) Absolute Nucleated RBC 0.000 Nucleated RBC % (auto) 0.0 PT 11.5 INR 1.0 APTT aPTT Heparin Protocol 29.9 L D-Dimer High Sensitivty Anion Gap Estim Creat Clear Calc Estimated GFR Random Glucose Calcium Magnesium Total Bilirubin AST ALT Alkaline Phosphatase Troponin I High Sens 347.8 H* D Total Protein Albumin Influenza Type A (PCR) Influenza Type B (PCR) RSV RNA Qual (PCR) SARS-CoV-2 RNA (RT-PCR) 08/01/22 21:19 MCV MCH MCHC RDW Plt Count MPV Immature Gran % (Auto) Neut % (Auto) Lymph % (Auto) [place] % (Auto) Eos % (Auto) Baso % (Auto) Lymph # (Auto) [place] # (Auto) Eos # (Auto) Baso # (Auto) Abs Immat Gran (auto) Absolute Neuts (auto) Absolute Nucleated RBC Nucleated RBC % (auto) PT INR APTT aPTT Heparin Protocol D-Dimer High Sensitivty Anion Gap Estim Creat Clear Calc Estimated GFR Random Glucose Calcium Magnesium Total Bilirubin AST ALT Alkaline Phosphatase Troponin I High Sens Total Protein Albumin Influenza Type A (PCR) NEGATIVE Influenza Type B (PCR) NEGATIVE RSV RNA Qual (PCR) NEGATIVE SARS-CoV-2 RNA (RT-PCR) NEGATIVE Imaging Radiologist's Impressions: Impressions Chest X-Ray 08/01/22 16:50 IMPRESSION: Unremarkable examination. Assessment and Plan (1) Non-ST elevation [place] (NSTEMI): Status: Acute (2) High cholesterol: Status: Acute Plan This is a 61-year-old female with pertinent history of mixed hyperlipidemia, tobacco use disorder who presents to the emergency department for evaluation of chest discomfort. #. 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 Cardiology consulted from the ER and patient was initiated on heparin drip. Administered dual antiplatelet therapy, beta-bandar and high-intensity statin. Obtaining lipid panel and A1c to optimize risk factors. Nitroglycerin p.r.n.. Avoid NSAIDs. #. GERD -intiating famotidine #. Mixed HLD -high intensity statin as above DVT Prophylaxis: Heparin drip Diet: Cardiac diet Full code Admit as inpatient and will require two night minimum hospital stay for evaluation and management of NSTEMI. Patient is on IV heparin drip Quality Stroke Does the patient have a stroke diagnosis?: No VTE Prior VTE?: No VTE Risk Level:: Medical - low VTE Device Contraindication: Treatment Not Indicated VTE Drug Contraindication: N/A - Med Ordered
[2022-08-01] MEDS: Atorvastatin Calcium 40 MG TABLET PO (23:24)
[2022-08-01] MEDS: Metoprolol Tartrate 25 MG TABLET PO (23:24)
[2022-08-01] MEDS: Clopidogrel Bisulfate 75 MG TABLET PO (23:24)
[2022-08-01 23:47] LABS: Appearance Urine Clear; Color Urine Yellow; Glucose Urine UA Negative (Negative); Leukocyte Esterase Urine Trace (Negative); Nitrite Urine Negative (Negative); Specific Gravity - Urine <= 1.005 (1.005-1.025); UMIC TRIGGER UACC YES; Urine Blood Negative (Negative); Urine Ketones Trace mg/dL (Negative); Urine Protein Negative (Neg-Trace)
--- NOTE | 2022-08-01 23:50 | PC.NURSE ---
pt states her chest pressure is dull and has reduced to 2/10. bp improved 150/84 hr 85 nsr no ectopy noted. pt is awere she is being admitted for her chest pain. heparin drip infusing no bleeding at site.
[2022-08-01 23:52] LABS: Bacteria Urine Trace (None Seen); Hyaline Casts Urine 0-2 /LPF (0-2); RBC Urine 0-2 /HPF (0-2); WBC Urine 0-5 /HPF (0-5)
[2022-08-02] VITALS (13 sets, daily range): BP systolic 109–177; BP diastolic 61–101; PULSE 57–90; RESP 15–20; TEMP 36.5–37.4; O2SAT 87–97; BMI 33.0
[2022-08-02 00:07] LABS: Cholesterol 253 mg/dL; HDL Cholesterol 41 mg/dL; LDL Cholesterol Calculated 182 mg/dl; Triglycerides 150 mg/dL
--- NOTE | 2022-08-02 00:38 | PC.NURSE ---
0000 ROUNDING DONE PT ASLEEP ,CALL BRUNO WITHIN REACH .
[2022-08-02 01:16] LABS: PTT Heparin Drip 39.6 SEC (53-77.9)
--- NOTE | 2022-08-02 01:47 | PC.NURSE ---
0200 ROUNDING DONE PT ASLEEP ,CALL BRUNO WITHIN REACH .
[2022-08-02 03:35] LABS: PTT Heparin Drip 42.5 SEC (53-77.9)
[2022-08-02 03:38] LABS: Estimated Average Glucose 154 mg/dL
--- NOTE | 2022-08-02 04:08 | PC.NURSE ---
0400 rounding done pt asleep ,vs taken ,call miranda within reach .
[2022-08-02] MEDS: Heparin Sodium,Porcine 5,000 UNIT/ML VIAL 4000 UNIT IVPUSH ×2 (04:11→17:29)
--- NOTE | 2022-08-02 04:17 | PC.NURSE ---
pt was sleeping, heparin dose adjusted per protocal, pt denies pain or pressure to her chest. pt has 2L nc for sat 95%, no s.s of resp distress., skin pink warm and dry. pt is alert and oriented x4
[2022-08-02 06:13] LABS: MANUAL DIFF FLAG NO
[2022-08-02 06:17] LABS: Basophils Percent Auto 0.5 % (0-2); Eosinophils Absolute Auto 0.1 X10*3/uL (0.0-0.4); Hematocrit 43.6 % (37.0-47.0); Hemoglobin 14.9 g/dl (12.0-16.0); Imm Gran Abs Auto 0.02 X10*3/uL (0.00-0.03); Imm Gran Pct Auto 0.2 % (0.0-0.4); Lymphocytes Absolute Auto 1.7 X10*3/uL (1.2-4.9); Lymphocytes Percent Auto 19.3 % (20-40); Mean Corpuscular HGB Conc 34.2 g/dl (31.0-35.0); Mean Corpuscular Volume 93.6 fL (80.0-98.0); Mean Platelet Volume 9.8 fL (9.4-12.3); Monocytes Absolute Auto 0.7 X10*3/uL (0.1-1.2); Monocytes Percent Auto 8.5 % (2-11); Neutrophils Absolute Auto 6.1 x10*3/uL (2.0-8.3); Neutrophils Percent Auto 70.5 % (45-73); Platelet Count 284 X10*3/uL (160-400); Red Blood Count 4.66 X10*6/uL (4.20-5.50); Red Cell Distribution Width 12.6 % (11.0-16.0); White Blood Count 8.7 X10*3/uL (4.8-10.8)
[2022-08-02 06:30] LABS: INTERNATIONAL NORM RATIO 1.1 (0.9-1.1); Prothrombin Time 12.3 SEC (10.0-13.1)
[2022-08-02 06:33] LABS: Anion Gap 14 (12-20); Blood Urea Nitrogen 8 mg/dL (9-16); Calcium 9.3 mg/dL (8.4-10.2); Carbon Dioxide 24 mmol/L (22-29); Chloride 105 mmol/L (96-108); Creatinine Clr Calc Pharmacy 101.9; Estimated Glomerular Filt Rate > 60; Glucose Random 167 mg/dL (60-115); Potassium 4.3 mmol/L (3.3-5.1); Sodium 139 mmol/L (135-145)
[2022-08-02 06:43] LABS: Troponin-I High Sensitivity > 3600.0 ng/L (<3.5-17.0)
--- NOTE | 2022-08-02 06:46 | PC.NURSE ---
pt has been sleeping thru the night with no chest pain after heparin drip started. at this time critical lab value reported to hospitalist trop >3600. pt at this time is pain free and states I feel great, no pressure in my chest, no chest pain, hr 65 bp elevated. pt denies headache.
[2022-08-02] MEDS: Famotidine 20 MG TABLET PO (08:38)
[2022-08-02] MEDS: 0.9 % Sodium Chloride Flush 3 ML SYRINGE IVFLUSH ×2 (08:39→23:39)
--- NOTE | 2022-08-02 08:53 | CA_ITS ---
Transthoracic Echocardiogram Patient (Last, First, Middle): Joyce Hernandez A Gender: Female Date of : 1960 Age: 61 Procedure Date: 08/02/2022 Procedure Type: Transthoracic Echocardiogram Location: ER Height: 170.18 cm Weight: 99.34 kg BSA: 2.10 m2 Heart Rate: bpm BP: 156 / 78 mmHg Budget Technician: TO Referring MD: Antonia Ko MD Symptoms: NSTEMI Study Quality: Fair/Contrast Conclusions: - Normal left ventricular cavity size. There is mildly increased left ventricular wall thickness. The left ventricular systolic function is borderline reduced. The visually estimated ejection fraction is between 45-50%. - The anterolateral wall and apical lateral segment are hypokinetic. - Normal right ventricular cavity size and systolic function. - There is mild dilatation of the sinuses of Valsalva measuring 3.43 cm and mild dilatation of the ascending aorta measuring 3.50 cm. Findings Procedure Information Contrast agent, definity, is being given per protocol without apparent complications. Left Ventricle Normal left ventricular cavity size. There is mildly increased left ventricular wall thickness. The left ventricular systolic function is borderline reduced. The visually estimated ejection fraction is between 45 50%. There is evidence of regional wall motion abnormalities. Abnormal diastolic function is noted. Spectral Doppler is indicative of a pseudonormal filling pattern. E/E prime ratio is between 8 and 15 consistent with indeterminate filling pressures. Wall Motion Rest Echo Findings The anterolateral wall and apical lateral segment are hypokinetic. Right Ventricle Normal right ventricular cavity size and systolic function. Atria The left atrium is likely dilated. The right atrium was not well visualized. Aortic Valve There is a normal trileaflet aortic valve. There is mild calcification of the aortic valve. There is no aortic valve stenosis. There is no aortic valve regurgitation. Mitral Valve The mitral valve appears normal. There is no mitral valve regurgitation. There is no mitral valve stenosis. Pulmonic Valve The pulmonic valve is likely normal. Tricuspid Valve Normal tricuspid valve structure. There is trace tricuspid valve regurgitation. Normal right atrial pressure. There is no evidence of pulmonary hypertension. Great Vessels There is mild dilatation of the sinuses of Valsalva measuring 3.43 cm and mild dilatation of the ascending aorta measuring 3.50 cm. The visualized portions of the pulmonary artery and branches are normal. Venous The inferior vena cava is normal in size and collapses greater than 50% with inspiration. Pericardium/Pleural There is no evidence of pericardial effusion. Prior Study Comparison No prior study available for comparison. Measurements 2D Linear Measurements IVSd: 1.10 0.6-0.9/0.6-1.0 cm LVIDd: 4.90 3.9-5.3/4.2-5.9 cm LVIDd Index: 2.33 2.4-3.2/2.2-3.1 cm/m2 LVIDs: 3.27 2.0-3.6 cm LVPWd: 0.91 0.7-1.1 cm LA Diam: 3.70 2.7-3.8/3.0-4.0 cm LAIDs Index: 1.76 1.5-2.3 cm/m2 LV Mass: 220.63 67-162/88-224 g LV Mass Index: 105.06 43-95/49-115 g/m2 LVOT Diam: 2.00 3.0+(-)1.3 cm 2D Systolic Function EF 4C: 44.00 >55% EF 2C: 48.80 >55% EF BiP: 47.00 >55% Mitral Valve MV Pk E: 0.78 MV PK A: 0.81 MV Decel Time: 256.00 E/A: 1.00 E'Lateral: 7.94 E'Medial: 5.44 E/E' Med: 14.30 E/E' Lat: 9.80 PHT: 75.00 MVA PHT: 2.93 Decel [place]: 3.03 Aortic Valve AoV Pk Stefano: 1.44 AoV Mn Stefano: 0.97 AoV VTI: 0.30 AoV Pk Grad: 8.00 Aov Mn Grad: 4.00 SAUL Cont.VTI: 1.95 LVOT LVOT Pk Stefano: 0.88 LVOT Mn Stef[place]: 0.56 LVOT VTI: 0.19 LVOT Pk Grad: 3.00 LVOT Mn Grad: 1.00 LVOT Diam: 2.00 LVOT Area: 3.14 Diastolic Function MV Pk E: 0.78 MV Pk A: 0.81 E/A: 1.00 E'Medial: 5.44 E/E' Med: 14.30 E' Laterial: 7.94 E/E' Lat: 9.80 Right Ventricle TAPSE (mm): 20.80 TVS' Stefano: 9.03 Tricuspid Valve TR Pk Stefano: 2.16 TR Pk Grad: 19.00 RA Press: 8.00 RVSP: 27.00 Great Vessels Aorta Sinus of Valsalva: 3.43 2.0-3.[address] [place]: 3.18 1.7-3.4 cm Ao Asc: 3.50 2.1-3.4 cm Updated in Other Vendor System with Status of Final Shorty Moody MD electronically signed on 08/02/2022 4:44:53 PM with status of Final
[2022-08-02] MEDS: hydrALAZINE HCl 20 MG/ML VIAL 5 MG IVPUSH (10:26)
[2022-08-02] MEDS: Metoprolol Tartrate 25 MG TABLET PO ×2 (10:27→20:38)
[2022-08-02] MEDS: amLODIPine Besylate 5 MG TABLET PO (10:27)
[2022-08-02] MEDS: Nicotine 21 MG PATCH.TD24 TRANSDERMA (10:27)
[2022-08-02 10:29] LABS: PTT Heparin Drip 69.2 SEC (53-77.9)
--- NOTE | 2022-08-02 10:47 | PM.CNCAR ---
History of Present Illness History of Present Illness Date of Service: 08/02/22 Requesting physician: Antonia Ko Chief complaint: NSTEMI Narrative: 61-year-old female with tobacco abuse, HTN, HLD and strong FH of CAD with father dying of CT in 40s and mother getting CABG in her 60s - presenting with CP. She had pressure over her chest off and on for couple of days followed prolonged chest discomfort which lasted for almost the whole day yesterday. She came to emergency department around 16:30 and her high sensitivity troponins were around 28 followed by 113 and then 347. Her chest discomfort improved while she was in the hospital of her she had repeat troponin done this morning which is showing high sensitive troponin level more than 3600. She is saying she has been feeling fine and wants to go home. Her chest discomfort improved yesterday but was present for many hours and by description whole day. She is hypertensive. She also has been heavy smoker and is withdrawing from nicotine and craving for cigarettes. No other symptoms currently. No preceding issues. No bleeding concerns. Not taking any medications regularly. 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 Meds Allergies Allergy/AdvReac Type Severity Reaction Status Date / Time No Known Allergies Allergy Mild UNKNOWN Verified 12/25/20 09:49 Active Medications: Current Medications Acetaminophen (Acetaminophen 325 Mg Tablet) 650 mg PO Q6H PRN PRN Reason: Pain, Mild (Pain Scale 1-3) Amlodipine Besylate (Amlodipine Besylate 5 Mg Tablet) 5 mg PO DAILY BRYON; Protocol Atorvastatin Calcium (Atorvastatin Calcium 40 Mg Tablet) 40 mg PO BEDTIME BRYON Famotidine (Famotidine 20 Mg Tablet) 20 mg PO DAILY BRYON Last Admin: 08/02/22 08:38 Dose: 20 mg Heparin Sodium (Porcine) (Heparin Sodium,Porcine 5,000 Unit/Ml Vial) 4,000 unit 40 unit/kg (4000 unit) IVPUSH PROTOCOL BOLUS PRN; Protocol PRN Reason: 40 unit/kg - Heparin Protocol Last Admin: 08/02/22 04:11 Dose: 4,000 unit Heparin Sodium (Porcine) (Heparin Sodium,Porcine 5,000 Unit/Ml Vial) 8,000 unit 80 unit/kg (8000 unit) IVPUSH PROTOCOL BOLUS PRN; Protocol PRN Reason: 80 unit/kg - Heparin Protocol Hydroxyzine HCl (Hydroxyzine Hcl 25 Mg Tablet) 25 mg PO Q8H PRN PRN Reason: anxiety/restlessness Heparin Sodium/Sodium Chloride (Heparin Sodium,Porcine/1/2ns) 25,000 unit in 250 mls @ 0 mls/hr IVCONT .Q0M [facility]; Protocol Last Titration: 08/02/22 04:14 Dose: 12 units/kg/hr, 11.94 mls/hr Melatonin (Melatonin 3 Mg Tablet) 6 mg PO BEDTIME PRN PRN Reason: Insomnia Metoprolol Tartrate (Metoprolol Tartrate 25 Mg Tablet) 25 mg PO BID [facility]; Protocol Last Admin: 08/02/22 10:27 Dose: 25 mg Nicotine (Nicotine 21 Mg Patch.Td24) 21 mg TRANSDERMA DAILY [facility] Last Admin: 08/02/22 10:27 Dose: 21 mg Nitroglycerin (Nitroglycerin 0.4 Mg Tab.Subl) 0.4 mg SUBLINGUAL Q5MX3 PRN PRN Reason: Chest Pain Ondansetron HCl (Ondansetron Hcl 4 Mg/2 Ml Vial) 4 mg IVPUSH Q8H PRN PRN Reason: Nausea and Vomiting Pharmacy Consult (Consult Rx Perform Med Rec) 1 each MISCELLANE ONCE PRN PRN Reason: Consult order Sodium Chloride (0.9 % Sodium Chloride Flush 3 Ml Syringe) 3 ml IVFLUSH QSHIFT [facility] Last Admin: 08/02/22 08:39 Dose: 3 ml Home Medications Medication Instructions Recorded Confirmed Last Taken Type atorvastatin 10 mg tablet 10 mg PO DAILY 12/25/20 08/01/22 07/11/22 History Physical Exam Vital Signs: Vital Signs: Last Vital Signs Temp 98.8 F 08/02/22 07:04 Pulse 69 08/02/22 07:04 Resp 15 08/02/22 07:04 BP 177/101 H 08/02/22 07:04 Pulse Ox 96 08/02/22 07:04 O2 Del Method 08/02/22 07:04 O2 Flow Rate 2 08/02/22 07:04 BMI result Body Mass Index 34.3 GENERAL APPEARANCE: in no acute distress, pleasant. NECK: no carotid bruit, no jugular venous distention. SKIN: no suspicious lesions, warm and dry. HEART: no murmurs, regular rate and rhythm. LUNGS: clear to auscultation bilaterally. ABDOMEN: soft, nontender. EXTREMITIES: no edema. PERIPHERAL PULSES: equal. NEUROLOGIC: No gross deficits, AAO X 3 Objective Labs and Meds Result diagrams: 08/02/22 06:02 08/02/22 06:02 Lab results: Laboratory Results - last 24 hr 08/01/22 08/01/22 08/01/22 16:29 16:29 16:29 WBC 9.5 RBC 4.74 Hgb 14.8 Hct 44.6 MCV 94.1 MCH 31.2 MCHC 33.2 RDW 12.4 Plt Count 316 MPV 9.4 Immature Gran % (Auto) 0.3 Neut % (Auto) 80.3 H Lymph % (Auto) 11.6 L [place] % (Auto) 6.8 Eos % (Auto) 0.7 Baso % (Auto) 0.3 Lymph # (Auto) 1.1 L [place] # (Auto) 0.6 Eos # (Auto) 0.1 Baso # (Auto) 0.0 Abs Immat Gran (auto) 0.03 Absolute Neuts (auto) 7.6 Absolute Nucleated RBC 0.000 Nucleated RBC % (auto) 0.0 PT INR APTT aPTT Heparin Protocol D-Dimer High Sensitivty < 150 Sodium 137 Potassium 4.2 Chloride 98 Carbon Dioxide 24 Anion Gap 19 BUN 8 L Creatinine 0.71 Estim Creat Clear Calc 102.3 Estimated GFR > 60 Random Glucose 152 H Estimat Average Glucose Hemoglobin A1c % Calcium 9.4 Magnesium 2.1 Total Bilirubin 0.5 AST 17 ALT 24 Alkaline Phosphatase 115 Troponin I High Sens Total Protein 7.4 Albumin 4.2 Triglycerides Cholesterol LDL Cholesterol, Calc HDL Cholesterol Urine Color Urine Appearance Urine pH Ur Specific [place] Urine Protein Urine Glucose (UA) Urine Ketones Urine Blood Urine Nitrite Ur Leukocyte Esterase Urine RBC Urine WBC Ur Squamous Epith Cells Urine Bacteria Hyaline Casts Influenza Type A (PCR) Influenza Type B (PCR) RSV RNA Qual (PCR) SARS-CoV-2 RNA (RT-PCR) 11/08/1208/01/22 08/01/22 16:30 18:44 18:44 WBC RBC Hgb Hct MCV MCH MCHC RDW Plt Count MPV Immature Gran % (Auto) Neut % (Auto) Lymph % (Auto) [place] % (Auto) Eos % (Auto) Baso % (Auto) Lymph # (Auto) [place] # (Auto) Eos # (Auto) Baso # (Auto) Abs Immat Gran (auto) Absolute Neuts (auto) Absolute Nucleated RBC Nucleated RBC % (auto) PT 11.5 INR 1.0 APTT 30.4 aPTT Heparin Protocol D-Dimer High Sensitivty Sodium Potassium Chloride Carbon Dioxide Anion Gap BUN Creatinine Estim Creat Clear Calc Estimated GFR Random Glucose Estimat Average Glucose Hemoglobin A1c % Calcium Magnesium Total Bilirubin AST ALT Alkaline Phosphatase Troponin I High Sens 28.1 H 113.7 H* D Total Protein Albumin Triglycerides Cholesterol LDL Cholesterol, Calc HDL Cholesterol Urine Color Urine Appearance Urine pH Ur Specific [place] Urine Protein Urine Glucose (UA) Urine Ketones Urine Blood Urine Nitrite Ur Leukocyte Esterase Urine RBC Urine WBC Ur Squamous Epith Cells Urine Bacteria Hyaline Casts Influenza Type A (PCR) Influenza Type B (PCR) RSV RNA Qual (PCR) SARS-CoV-2 RNA (RT-PCR) 08/01/22 08/01/22 08/01/22 20:02 20:47 20:47 WBC 10.9 H RBC 4.82 Hgb 15.1 Hct 44.6 MCV 92.5 MCH 31.3 MCHC 33.9 RDW 12.4 Plt Count 343 MPV 9.5 Immature Gran % (Auto) Neut % (Auto) Lymph % (Auto) [place] % (Auto) Eos % (Auto) Baso % (Auto) Lymph # (Auto) [place] # (Auto) Eos # (Auto) Baso # (Auto) Abs Immat Gran (auto) Absolute Neuts (auto) Absolute Nucleated RBC 0.000 Nucleated RBC % (auto) 0.0 PT 11.5 INR 1.0 APTT aPTT Heparin Protocol 29.9 L D-Dimer High Sensitivty Sodium Potassium Chloride Carbon Dioxide Anion Gap BUN Creatinine Estim Creat Clear Calc Estimated GFR Random Glucose Estimat Average Glucose Hemoglobin A1c % Calcium Magnesium Total Bilirubin AST ALT Alkaline Phosphatase Troponin I High Sens 347.8 H* D Total Protein Albumin Triglycerides Cholesterol LDL Cholesterol, Calc HDL Cholesterol Urine Color Urine Appearance Urine pH Ur Specific [place] Urine Protein Urine Glucose (UA) Urine Ketones Urine Blood Urine Nitrite Ur Leukocyte Esterase Urine RBC Urine WBC Ur Squamous Epith Cells Urine Bacteria Hyaline Casts Influenza Type A (PCR) Influenza Type B (PCR) RSV RNA Qual (PCR) SARS-CoV-2 RNA (RT-PCR) 08/01/22 08/01/22 08/01/22 21:19 23:39 23:40 WBC RBC Hgb Hct MCV MCH MCHC RDW Plt Count MPV Immature Gran % (Auto) Neut % (Auto) Lymph % (Auto) [place] % (Auto) Eos % (Auto) Baso % (Auto) Lymph # (Auto) [place] # (Auto) Eos # (Auto) Baso # (Auto) Abs Immat Gran (auto) Absolute Neuts (auto) Absolute Nucleated RBC Nucleated RBC % (auto) PT INR APTT aPTT Heparin Protocol D-Dimer High Sensitivty Sodium Potassium Chloride Carbon Dioxide Anion Gap BUN Creatinine Estim Creat Clear Calc Estimated GFR Random Glucose Estimat Average Glucose 154 Hemoglobin A1c % 7.0 Calcium Magnesium Total Bilirubin AST ALT Alkaline Phosphatase Troponin I High Sens Total Protein Albumin Triglycerides Cholesterol LDL Cholesterol, Calc HDL Cholesterol Urine Color Yellow Urine Appearance Clear Urine pH 6.0 Ur Specific [place] <= 1.005 Urine Protein Negative Urine Glucose (UA) Negative Urine Ketones Trace Urine Blood Negative Urine Nitrite Negative Ur Leukocyte Esterase Trace H Urine RBC 0-2 Urine WBC 0-5 Ur Squamous Epith Cells 3-5 Urine Bacteria Trace Hyaline Casts 0-2 Influenza Type A (PCR) NEGATIVE Influenza Type B (PCR) NEGATIVE RSV RNA Qual (PCR) NEGATIVE SARS-CoV-2 RNA (RT-PCR) NEGATIVE 08/01/22 08/02/22 08/02/22 23:40 00:57 03:12 WBC RBC Hgb Hct MCV MCH MCHC RDW Plt Count MPV Immature Gran % (Auto) Neut % (Auto) Lymph % (Auto) [place] % (Auto) Eos % (Auto) Baso % (Auto) Lymph # (Auto) [place] # (Auto) Eos # (Auto) Baso # (Auto) Abs Immat Gran (auto) Absolute Neuts (auto) Absolute Nucleated RBC Nucleated RBC % (auto) PT INR APTT aPTT Heparin Protocol 39.6 L D 42.5 L D-Dimer High Sensitivty Sodium Potassium Chloride Carbon Dioxide Anion Gap BUN Creatinine Estim Creat Clear Calc Estimated GFR Random Glucose Estimat Average Glucose Hemoglobin A1c % Calcium Magnesium Total Bilirubin AST ALT Alkaline Phosphatase Troponin I High Sens Total Protein Albumin Triglycerides 150 Cholesterol 253 LDL Cholesterol, Calc 182 HDL Cholesterol 41 Urine Color Urine Appearance Urine pH Ur Specific [place] Urine Protein Urine Glucose (UA) Urine Ketones Urine Blood Urine Nitrite Ur Leukocyte Esterase Urine RBC Urine WBC Ur Squamous Epith Cells Urine Bacteria Hyaline Casts Influenza Type A (PCR) Influenza Type B (PCR) RSV RNA Qual (PCR) SARS-CoV-2 RNA (RT-PCR) 08/02/22 08/02/22 08/02/22 06:02 06:02 06:02 WBC 8.7 RBC 4.66 Hgb 14.9 Hct 43.6 MCV 93.6 MCH 32.0 MCHC 34.2 RDW 12.6 Plt Count 284 MPV 9.8 Immature Gran % (Auto) 0.2 Neut % (Auto) 70.5 Lymph % (Auto) 19.3 L [place] % (Auto) 8.5 Eos % (Auto) 1.0 Baso % (Auto) 0.5 Lymph # (Auto) 1.7 [place] # (Auto) 0.7 Eos # (Auto) 0.1 Baso # (Auto) 0.0 Abs Immat Gran (auto) 0.02 Absolute Neuts (auto) 6.1 Absolute Nucleated RBC 0.000 Nucleated RBC % (auto) 0.0 PT INR APTT aPTT Heparin Protocol D-Dimer High Sensitivty Sodium 139 Potassium 4.3 Chloride 105 Carbon Dioxide 24 Anion Gap 14 BUN 8 L Creatinine 0.72 Estim Creat Clear Calc 101.9 Estimated GFR > 60 Random Glucose 167 H Estimat Average Glucose Hemoglobin A1c % Calcium 9.3 Magnesium Total Bilirubin AST ALT Alkaline Phosphatase Troponin I High Sens > 3600.0 H* Total Protein Albumin Triglycerides Cholesterol LDL Cholesterol, Calc HDL Cholesterol Urine Color Urine Appearance Urine pH Ur Specific [place] Urine Protein Urine Glucose (UA) Urine Ketones Urine Blood Urine Nitrite Ur Leukocyte Esterase Urine RBC Urine WBC Ur Squamous Epith Cells Urine Bacteria Hyaline Casts Influenza Type A (PCR) Influenza Type B (PCR) RSV RNA Qual (PCR) SARS-CoV-2 RNA (RT-PCR) 08/02/22 08/02/22 06:02 10:14 WBC RBC Hgb Hct MCV MCH MCHC RDW Plt Count MPV Immature Gran % (Auto) Neut % (Auto) Lymph % (Auto) [place] % (Auto) Eos % (Auto) Baso % (Auto) Lymph # (Auto) [place] # (Auto) Eos # (Auto) Baso # (Auto) Abs Immat Gran (auto) Absolute Neuts (auto) Absolute Nucleated RBC Nucleated RBC % (auto) PT 12.3 INR 1.1 APTT aPTT Heparin Protocol 69.2 D D-Dimer High Sensitivty Sodium Potassium Chloride Carbon Dioxide Anion Gap BUN Creatinine Estim Creat Clear Calc Estimated GFR Random Glucose Estimat Average Glucose Hemoglobin A1c % Calcium Magnesium Total Bilirubin AST ALT Alkaline Phosphatase Troponin I High Sens Total Protein Albumin Triglycerides Cholesterol LDL Cholesterol, Calc HDL Cholesterol Urine Color Urine Appearance Urine pH Ur Specific [place] Urine Protein Urine Glucose (UA) Urine Ketones Urine Blood Urine Nitrite Ur Leukocyte Esterase Urine RBC Urine WBC Ur Squamous Epith Cells Urine Bacteria Hyaline Casts Influenza Type A (PCR) Influenza Type B (PCR) RSV RNA Qual (PCR) SARS-CoV-2 RNA (RT-PCR) Imaging Radiologist's impression: Impressions Chest X-Ray 08/01/22 16:50 IMPRESSION: Unremarkable examination. Assessment and Plan (1) Non-ST elevation CT (NSTEMI): Status: Acute (2) Essential hypertension: Status: Acute Plan 61-year-old female presenting with chest discomfort and NSTEMI. She had prolonged CP with improvement and has clearly ruled in for NSTEMI. On ASA and heparin gtt. Blood pressure is high and needs better control. Add Amlodipine 5 mg and metoprolol 25 BID. Will get an echo od her today. If no high risk features on the echo like significant LV dysfunction then would load her with Plavix. She was given 75 mg Plavix on admission and then it was stopped by the medicine team. She has said that she wants to go home because she feels great. I have advised her that something major is going on and she clearly had a heart attack and should not leave the hospital. Will give her a nicotine patch to help with the cigarette craving. Thank you for allowing me to participate in the care of your patient. Please feel free to contact me if you have any questions. Procedures Date of Service Date of Service: 08/02/22
[2022-08-02] MEDS: Aspirin 81 MG TAB.CHEW PO (11:26)
--- NOTE | 2022-08-02 11:49 | PC.NURSE ---
PT ARRIVES FROM MAIN ED TO OVERFLOW 6. SHE IS IN A SR ON THE MONITOR IN THE 60'S. SHE HAS IV ACCESS IN BILATERAL AC'S. PATENT. IV HEPARIN IS INFUSING. SHE DENIES ACTIVE CHEST PAIN, SHE HAS A NICOTINE PATCH ON.VSS
--- NOTE | 2022-08-02 14:06 | HO.PM.IMPN ---
Subjective Subjective Date of Service: 08/02/22 Interval History: patient seen and examined at bedside. She is pain-free at this time, she denies any shortness of breath, no abdominal pain, nausea or vomiting, no diarrhea constipation, no urinary symptoms patient reports that she has withdrawn from nicotine and would like a nicotine patch. She is uncomfortable in her ED bed and would like to be moved otherwise denies any acute chest pain at this time. No lower extremity edema. Review of Systems Review of Systems: Yes all other systems are reviewed and are negative Physical Exam Vital Signs: Vital Signs: Last Vital Signs Temp 98.8 F 08/02/22 07:04 Pulse 61 08/02/22 11:48 Resp 20 08/02/22 11:48 BP 156/78 H 08/02/22 11:48 Pulse Ox 96 08/02/22 07:04 O2 Del Method 08/02/22 07:04 O2 Flow Rate 2 08/02/22 07:04 BMI result Body Mass Index 34.3 Const: Other: Patient alert oriented, no acute distress Resp: Other: lungs are clear to auscultation bilaterally GI: Other: abdomen is soft, nontender, no rebound or guarding Neuro: Other: no neurological deficits Extrem: Other: no lower extremity edema Objective Data Active Medications Acetaminophen (Acetaminophen 325 Mg Tablet) 650 mg PO Q6H PRN PRN Reason: Pain, Mild (Pain Scale 1-3) Amlodipine Besylate (Amlodipine Besylate 5 Mg Tablet) 5 mg PO DAILY [facility]; Protocol Last Admin: 08/02/22 10:27 Dose: 5 mg Documented By: KADEN Aspirin (Aspirin 81 Mg Tab.Chew) 81 mg PO DAILY [facility] Last Admin: 08/02/22 11:26 Dose: 81 mg Documented By: KADEN Atorvastatin Calcium (Atorvastatin Calcium 40 Mg Tablet) 40 mg PO BEDTIME [facility] Famotidine (Famotidine 20 Mg Tablet) 20 mg PO DAILY [facility] Last Admin: 08/02/22 08:38 Dose: 20 mg Documented By: KADEN Heparin Sodium (Porcine) (Heparin Sodium,Porcine 5,000 Unit/Ml Vial) 4,000 unit 40 unit/kg (4000 unit) IVPUSH PROTOCOL BOLUS PRN; Protocol PRN Reason: 40 unit/kg - Heparin Protocol Last Admin: 08/02/22 04:11 Dose: 4,000 unit Documented By: SAI Heparin Sodium (Porcine) (Heparin Sodium,Porcine 5,000 Unit/Ml Vial) 8,000 unit 80 unit/kg (8000 unit) IVPUSH PROTOCOL BOLUS PRN; Protocol PRN Reason: 80 unit/kg - Heparin Protocol Hydroxyzine HCl (Hydroxyzine Hcl 25 Mg Tablet) 25 mg PO Q8H PRN PRN Reason: anxiety/restlessness Heparin Sodium/Sodium Chloride (Heparin Sodium,Porcine/1/2ns) 25,000 unit in 250 mls @ 0 mls/hr IVCONT .Q0M [facility]; Protocol Last Titration: 08/02/22 11:30 Dose: 12 units/kg/hr, 11.94 mls/hr Documented By: KADEN Co-signed By: SANDOR Melatonin (Melatonin 3 Mg Tablet) 6 mg PO BEDTIME PRN PRN Reason: Insomnia Metoprolol Tartrate (Metoprolol Tartrate 25 Mg Tablet) 25 mg PO BID [facility]; Protocol Last Admin: 08/02/22 10:27 Dose: 25 mg Documented By: KADEN Nicotine (Nicotine 21 Mg Patch.Td24) 21 mg TRANSDERMA DAILY [facility] Last Admin: 08/02/22 10:27 Dose: 21 mg Documented By: KADEN Nitroglycerin (Nitroglycerin 0.4 Mg Tab.Subl) 0.4 mg SUBLINGUAL Q5MX3 PRN PRN Reason: Chest Pain Nitroglycerin (Nitroglycerin 2 % Oint 1 Gm Packet) 1 inch TRANSDERMA RQ6H WHILE AWAKE [facility] Ondansetron HCl (Ondansetron Hcl 4 Mg/2 Ml Vial) 4 mg IVPUSH Q8H PRN PRN Reason: Nausea and Vomiting Pharmacy Consult (Consult Rx Perform Med Rec) 1 each MISCELLANE ONCE PRN PRN Reason: Consult order Sodium Chloride (0.9 % Sodium Chloride Flush 3 Ml Syringe) 3 ml IVFLUSH QSHIFT [facility] Last Admin: 08/02/22 08:39 Dose: 3 ml Documented By: KADEN Labs CBC & Chem 7: 08/02/22 06:02 08/02/22 06:02 Labs: Laboratory Results - last 24 hr 08/01/22 08/01/22 08/01/22 16:29 16:29 16:29 MCV 94.1 MCH 31.2 MCHC 33.2 RDW 12.4 Plt Count 316 MPV 9.4 Immature Gran % (Auto) 0.3 Neut % (Auto) 80.3 H Lymph % (Auto) 11.6 L [place] % (Auto) 6.8 Eos % (Auto) 0.7 Baso % (Auto) 0.3 Lymph # (Auto) 1.1 L [place] # (Auto) 0.6 Eos # (Auto) 0.1 Baso # (Auto) 0.0 Abs Immat Gran (auto) 0.03 Absolute Neuts (auto) 7.6 Absolute Nucleated RBC 0.000 Nucleated RBC % (auto) 0.0 PT INR APTT aPTT Heparin Protocol D-Dimer High Sensitivty < 150 Anion Gap 19 Estim Creat Clear Calc 102.3 Estimated GFR > 60 Random Glucose 152 H Estimat Average Glucose Hemoglobin A1c % Calcium 9.4 Magnesium 2.1 Total Bilirubin 0.5 AST 17 ALT 24 Alkaline Phosphatase 115 Troponin I High Sens Total Protein 7.4 Albumin 4.2 Triglycerides Cholesterol LDL Cholesterol, Calc HDL Cholesterol Urine Color Urine Appearance Urine pH Ur Specific [place] Urine Protein Urine Glucose (UA) Urine Ketones Urine Blood Urine Nitrite Ur Leukocyte Esterase Urine RBC Urine WBC Ur Squamous Epith Cells Urine Bacteria Hyaline Casts Influenza Type A (PCR) Influenza Type B (PCR) RSV RNA Qual (PCR) SARS-CoV-2 RNA (RT-PCR) 08/01/22 08/01/22 08/01/22 16:30 18:44 18:44 MCV MCH MCHC RDW Plt Count MPV Immature Gran % (Auto) Neut % (Auto) Lymph % (Auto) [place] % (Auto) Eos % (Auto) Baso % (Auto) Lymph # (Auto) [place] # (Auto) Eos # (Auto) Baso # (Auto) Abs Immat Gran (auto) Absolute Neuts (auto) Absolute Nucleated RBC Nucleated RBC % (auto) PT 11.5 INR 1.0 APTT 30.4 aPTT Heparin Protocol D-Dimer High Sensitivty Anion Gap Estim Creat Clear Calc Estimated GFR Random Glucose Estimat Average Glucose Hemoglobin A1c % Calcium Magnesium Total Bilirubin AST ALT Alkaline Phosphatase Troponin I High Sens 28.1 H 113.7 H* D Total Protein Albumin Triglycerides Cholesterol LDL Cholesterol, Calc HDL Cholesterol Urine Color Urine Appearance Urine pH Ur Specific [place] Urine Protein Urine Glucose (UA) Urine Ketones Urine Blood Urine Nitrite Ur Leukocyte Esterase Urine RBC Urine WBC Ur Squamous Epith Cells Urine Bacteria Hyaline Casts Influenza Type A (PCR) Influenza Type B (PCR) RSV RNA Qual (PCR) SARS-CoV-2 RNA (RT-PCR) 08/01/22 08/01/22 08/01/22 20:02 20:47 20:47 MCV 92.5 MCH 31.3 MCHC 33.9 RDW 12.4 Plt Count 343 MPV 9.5 Immature Gran % (Auto) Neut % (Auto) Lymph % (Auto) [place] % (Auto) Eos % (Auto) Baso % (Auto) Lymph # (Auto) [place] # (Auto) Eos # (Auto) Baso # (Auto) Abs Immat Gran (auto) Absolute Neuts (auto) Absolute Nucleated RBC 0.000 Nucleated RBC % (auto) 0.0 PT 11.5 INR 1.0 APTT aPTT Heparin Protocol 29.9 L D-Dimer High Sensitivty Anion Gap Estim Creat Clear Calc Estimated GFR Random Glucose Estimat Average Glucose Hemoglobin A1c % Calcium Magnesium Total Bilirubin AST ALT Alkaline Phosphatase Troponin I High Sens 347.8 H* D Total Protein Albumin Triglycerides Cholesterol LDL Cholesterol, Calc HDL Cholesterol Urine Color Urine Appearance Urine pH Ur Specific [place] Urine Protein Urine Glucose (UA) Urine Ketones Urine Blood Urine Nitrite Ur Leukocyte Esterase Urine RBC Urine WBC Ur Squamous Epith Cells Urine Bacteria Hyaline Casts Influenza Type A (PCR) Influenza Type B (PCR) RSV RNA Qual (PCR) SARS-CoV-2 RNA (RT-PCR) 08/01/22 08/01/22 08/01/22 21:19 23:39 23:40 MCV MCH MCHC RDW Plt Count MPV Immature Gran % (Auto) Neut % (Auto) Lymph % (Auto) [place] % (Auto) Eos % (Auto) Baso % (Auto) Lymph # (Auto) [place] # (Auto) Eos # (Auto) Baso # (Auto) Abs Immat Gran (auto) Absolute Neuts (auto) Absolute Nucleated RBC Nucleated RBC % (auto) PT INR APTT aPTT Heparin Protocol D-Dimer High Sensitivty Anion Gap Estim Creat Clear Calc Estimated GFR Random Glucose Estimat Average Glucose 154 Hemoglobin A1c % 7.0 Calcium Magnesium Total Bilirubin AST ALT Alkaline Phosphatase Troponin I High Sens Total Protein Albumin Triglycerides Cholesterol LDL Cholesterol, Calc HDL Cholesterol Urine Color Yellow Urine Appearance Clear Urine pH 6.0 Ur Specific [place] <= 1.005 Urine Protein Negative Urine Glucose (UA) Negative Urine Ketones Trace Urine Blood Negative Urine Nitrite Negative Ur Leukocyte Esterase Trace H Urine RBC 0-2 Urine WBC 0-5 Ur Squamous Epith Cells 3-5 Urine Bacteria Trace Hyaline Casts 0-2 Influenza Type A (PCR) NEGATIVE Influenza Type B (PCR) NEGATIVE RSV RNA Qual (PCR) NEGATIVE SARS-CoV-2 RNA (RT-PCR) NEGATIVE 08/01/22 08/02/22 08/02/22 23:40 00:57 03:12 MCV MCH MCHC RDW Plt Count MPV Immature Gran % (Auto) Neut % (Auto) Lymph % (Auto) [place] % (Auto) Eos % (Auto) Baso % (Auto) Lymph # (Auto) [place] # (Auto) Eos # (Auto) Baso # (Auto) Abs Immat Gran (auto) Absolute Neuts (auto) Absolute Nucleated RBC Nucleated RBC % (auto) PT INR APTT aPTT Heparin Protocol 39.6 L D 42.5 L D-Dimer High Sensitivty Anion Gap Estim Creat Clear Calc Estimated GFR Random Glucose Estimat Average Glucose Hemoglobin A1c % Calcium Magnesium Total Bilirubin AST ALT Alkaline Phosphatase Troponin I High Sens Total Protein Albumin Triglycerides 150 Cholesterol 253 LDL Cholesterol, Calc 182 HDL Cholesterol 41 Urine Color Urine Appearance Urine pH Ur Specific [place] Urine Protein Urine Glucose (UA) Urine Ketones Urine Blood Urine Nitrite Ur Leukocyte Esterase Urine RBC Urine WBC Ur Squamous Epith Cells Urine Bacteria Hyaline Casts Influenza Type A (PCR) Influenza Type B (PCR) RSV RNA Qual (PCR) SARS-CoV-2 RNA (RT-PCR) 08/02/22 08/02/22 08/02/22 06:02 06:02 06:02 MCV 93.6 MCH 32.0 MCHC 34.2 RDW 12.6 Plt Count 284 MPV 9.8 Immature Gran % (Auto) 0.2 Neut % (Auto) 70.5 Lymph % (Auto) 19.3 L [place] % (Auto) 8.5 Eos % (Auto) 1.0 Baso % (Auto) 0.5 Lymph # (Auto) 1.7 [place] # (Auto) 0.7 Eos # (Auto) 0.1 Baso # (Auto) 0.0 Abs Immat Gran (auto) 0.02 Absolute Neuts (auto) 6.1 Absolute Nucleated RBC 0.000 Nucleated RBC % (auto) 0.0 PT INR APTT aPTT Heparin Protocol D-Dimer High Sensitivty Anion Gap 14 Estim Creat Clear Calc 101.9 Estimated GFR > 60 Random Glucose 167 H Estimat Average Glucose Hemoglobin A1c % Calcium 9.3 Magnesium Total Bilirubin AST ALT Alkaline Phosphatase Troponin I High Sens > 3600.0 H* Total Protein Albumin Triglycerides Cholesterol LDL Cholesterol, Calc HDL Cholesterol Urine Color Urine Appearance Urine pH Ur Specific [place] Urine Protein Urine Glucose (UA) Urine Ketones Urine Blood Urine Nitrite Ur Leukocyte Esterase Urine RBC Urine WBC Ur Squamous Epith Cells Urine Bacteria Hyaline Casts Influenza Type A (PCR) Influenza Type B (PCR) RSV RNA Qual (PCR) SARS-CoV-2 RNA (RT-PCR) 08/02/22 08/02/22 06:02 10:14 MCV MCH MCHC RDW Plt Count MPV Immature Gran % (Auto) Neut % (Auto) Lymph % (Auto) [place] % (Auto) Eos % (Auto) Baso % (Auto) Lymph # (Auto) [place] # (Auto) Eos # (Auto) Baso # (Auto) Abs Immat Gran (auto) Absolute Neuts (auto) Absolute Nucleated RBC Nucleated RBC % (auto) PT 12.3 INR 1.1 APTT aPTT Heparin Protocol 69.2 D D-Dimer High Sensitivty Anion Gap Estim Creat Clear Calc Estimated GFR Random Glucose Estimat Average Glucose Hemoglobin A1c % Calcium Magnesium Total Bilirubin AST ALT Alkaline Phosphatase Troponin I High Sens Total Protein Albumin Triglycerides Cholesterol LDL Cholesterol, Calc HDL Cholesterol Urine Color Urine Appearance Urine pH Ur Specific [place] Urine Protein Urine Glucose (UA) Urine Ketones Urine Blood Urine Nitrite Ur Leukocyte Esterase Urine RBC Urine WBC Ur Squamous Epith Cells Urine Bacteria Hyaline Casts Influenza Type A (PCR) Influenza Type B (PCR) RSV RNA Qual (PCR) SARS-CoV-2 RNA (RT-PCR) Assessment and Plan (1) Non-ST elevation [place] (NSTEMI): Status: Acute (2) Essential hypertension: Status: Acute Plan This is a 61-year-old female with pertinent history of mixed hyperlipidemia, tobacco use disorder who presents to the emergency department for evaluation of chest discomfort. #NSTEMI - Trop > 3600 - discussed with Cardiology, continue heparin drip, placed on metoprolol for under BP control, continue high-intensity statin, continue aspirin - echocardiogram - continue telemetry # hypertension - poorly controlled - patient reports that she does not take any blood pressure medications at home as she was never diagnosed with hypertension - at this time will give hydralazine p.r.n. until po meds take effect - started on metoprolol - will add lisinopril 10 mg # GERD -intiating famotidine # Mixed HLD -high intensity statin as above DVT Prophylaxis: Heparin drip Diet: Cardiac diet Full code Admit as inpatient and will require two night minimum hospital stay for evaluation and management of NSTEMI. Patient is on IV heparin drip Quality Stroke Does the patient have a stroke diagnosis?: No VTE Prior VTE?: No VTE Risk Level:: Medical - low VTE Device Contraindication: Treatment Not Indicated VTE Drug Contraindication: N/A - Med Ordered
--- NOTE | 2022-08-02 15:34 | MHC.CM.PN ---
CM MET WITH PT. LIVES IN A SINGLE FAMILY HOME WITH PARENTS. INDEPENDENT AT BASELINE. NO SERVICES OR DME. 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 NO HCP BUT WOULD LIKE TO FILL ONE OUT WHILE HERE. PERRY LIM[place] X4. WAS A PREVIOUS PT AT [facility] BUT NO LONGER ACTIVE. DP: SIGNIFICANT OTHER WILL TRANSPORT AT OR.
[2022-08-02] MEDS: lisinopriL 10 MG TABLET PO (16:18)
[2022-08-02] MEDS: Nitroglycerin 2 % Oint 1 GM Packet 1 INCH TRANSDERMA ×2 (16:18→20:38)
[2022-08-02 16:31] LABS: PTT Heparin Drip 46.5 SEC (53-77.9)
[2022-08-02] MEDS: Heparin Sodium,Porcine/1/2NS 25,000 UNIT/250 ML IV.SOLN 13.93 UNIT IVCONT ×2 (17:27→21:46)
[2022-08-02] MEDS: Acetaminophen 325 MG TABLET 650 MG PO (17:40)
--- NOTE | 2022-08-02 18:15 | ECG_ITS ---
Test Reason : VTach? Blood Pressure : / mmHG Vent. Rate : 084 BPM Atrial Rate : 084 BPM P-R Int : 150 ms QRS Dur : 074 ms QT Int : 374 ms P-R-T Axes : 057 046 093 degrees QTc Int : 441 ms Normal sinus rhythm Nonspecific T wave abnormality Lateral leads Abnormal ECG When compared with ECG of 01-AUG-2022 16:12, Nonspecific T wave abnormality now evident in Lateral leads Referred By: Antonia Ko Electronically Signed By:KERI POOLE MD
[2022-08-02] MEDS: Clopidogrel Bisulfate 300 MG TABLET PO (18:49)
[2022-08-02 19:54] LABS: Anion Gap 18 (12-20); Calcium 9.2 mg/dL (8.4-10.2); Carbon Dioxide 22 mmol/L (22-29); Chloride 102 mmol/L (96-108); Creatinine Clr Calc Pharmacy 85.6; Estimated Glomerular Filt Rate > 60; Glucose Random 210 mg/dL (60-115); Potassium 3.9 mmol/L (3.3-5.1); Sodium 138 mmol/L (135-145)
[2022-08-02 20:05] LABS: Blood Urea Nitrogen 14 mg/dL (9-16); Magnesium 1.9 mg/dL (1.6-2.6)
[2022-08-02] MEDS: Atorvastatin Calcium 40 MG TABLET PO (20:38)
[2022-08-02 22:50] LABS: PTT Heparin Drip 87.4 SEC (53-77.9)
[2022-08-03 03:05] VITALS: BP 99/63; PULSE 65; RESP 20; TEMP 36.1; O2SAT 95
[2022-08-03 06:09] LABS: PTT Heparin Drip 62.3 SEC (53-77.9)
[2022-08-03 08:00] VITALS: BP 110/62
[2022-08-03] MEDS: Famotidine 20 MG TABLET PO (08:49)
[2022-08-03] MEDS: Metoprolol Tartrate 25 MG TABLET PO ×2 (08:49→20:41)
[2022-08-03] MEDS: Aspirin Enteric Coated 81 MG TABLET.DR PO (08:49)
[2022-08-03] MEDS: lisinopriL 10 MG TABLET PO (08:49)
[2022-08-03] MEDS: 0.9 % Sodium Chloride Flush 3 ML SYRINGE IVFLUSH (08:50)
[2022-08-03] MEDS: Nicotine 21 MG PATCH.TD24 TRANSDERMA (08:50)
--- NOTE | 2022-08-03 11:01 | PM.PNCARD ---
Subjective Subjective Date of Service: 08/03/22 Interval history: Seen examined at bedside. Clinically stable. No further chest discomfort. Physical Exam Vital Signs: Last Vital Signs Temp 97.0 F 08/03/22 03:05 Pulse 65 08/03/22 03:05 Resp 20 08/03/22 03:05 BP 110/62 08/03/22 08:00 Pulse Ox 95 08/03/22 03:05 O2 Del Method 08/03/22 03:05 O2 Flow Rate 2 08/03/22 03:05 BMI result Body Mass Index 33.0 GENERAL APPEARANCE: in no acute distress, pleasant. NECK: no carotid bruit, no jugular venous distention. SKIN: no suspicious lesions, warm and dry. HEART: no murmurs, regular rate and rhythm. LUNGS: clear to auscultation bilaterally. ABDOMEN: soft, nontender. EXTREMITIES: no edema. PERIPHERAL PULSES: equal. NEUROLOGIC: No gross deficits, AAO X 3 Objective Labs and Meds Result diagrams: 08/02/22 06:02 08/02/22 19:15 Lab results: Laboratory Results - last 24 hr 08/02/22 08/02/22 08/02/22 16:17 19:15 22:23 aPTT Heparin Protocol 46.5 L D 87.4 H D Sodium 138 Potassium 3.9 Chloride 102 Carbon Dioxide 22 Anion Gap 18 BUN 14 D Creatinine 0.84 Estim Creat Clear Calc 85.6 Estimated GFR > 60 Random Glucose 210 H Calcium 9.2 Magnesium 1.9 08/03/22 05:41 aPTT Heparin Protocol 62.3 D Sodium Potassium Chloride Carbon Dioxide Anion Gap BUN Creatinine Estim Creat Clear Calc Estimated GFR Random Glucose Calcium Magnesium Progress Note: A&P Assessment and plan (1) Essential hypertension: Status: Acute (2) High cholesterol: Status: Acute (3) Non-ST elevation [place] (NSTEMI): Status: Acute Plan [age] year female presenting with chest pain and NSTEMI. She has history of tobacco use, hypertension hyperlipidemia. Clinically stable beer blood pressure control is good. She is on aspirin Plavix currently. Echocardiography has shown lateral wall motion abnormality pointing to word left circumflex or diagonal artery. EF is borderline. Not in heart failure. Continue same medications for now. Continue heparin drip. Transferring her to [facility] today for potential cardiac catheterization tomorrow. Thank you for allowing me to participate in the care of your patient. Please feel free to contact me if you have any questions. Time Spent With Patient Time: Total time spent is greater than 50% in coordination of care (as documented) at patient's floor/unit and/or counseling patient: Progress Note: Quality Stroke Does the patient have a stroke diagnosis?: No Procedures Date of Service Date of Service: 08/03/22
[2022-08-03 12:00] VITALS: BP 126/72; PULSE 69; RESP 18; TEMP 37; O2SAT 94
[2022-08-03 12:53] LABS: PTT Heparin Drip 53.2 SEC (53-77.9)
[2022-08-03] MEDS: Heparin Sodium,Porcine/1/2NS 25,000 UNIT/250 ML IV.SOLN 11.94 UNIT IVCONT (13:10)
--- NOTE | 2022-08-03 14:07 | P.DS_ITS ---
DS: Providers Provider Date of Service: 08/03/22 Date of admission: 08/01/22 22:34 Primary care physician: Unknown Physician Consults: 08/01/22 22:38 Consult to Cardiology Routine Consulting Provider: Shorty Moody Reason for consultation: NSTEMI Has provider been notified: No DS: Diagnosis Discharge Diagnosis (1) Essential hypertension: Status: Acute (2) High cholesterol: Status: Acute (3) Non-ST elevation [place] (NSTEMI): Status: Acute DS: Summary Hospital Course Hospital Course: 61-year-old female with past medical history of hyperlipidemia presents to the hospital with complaints of chest pain found to have NSTEMI. patient has significant family history for coronary artery disease.Patient troponin increased to over 3600. Patient was treated with heparin drip, aspirin, Plavix. High-dose statin. patient was also started on metoprolol 25 b.i.d.. On arrival to the ED patient was noted to be hypertensive, lisinopril 10 mg was also added. Her blood pressure is now well controlled. She is pain free. Echo showed ejection fraction of 45-50% with hypokinetic anterolateral and apical lateral segment of the heart. Patient being transferred to [facility] for cardiac catheterization Case was discussed with patient and cardiology. Time Spent with Patient Time attestation: Total time spent providing and/or coordinating discharge services: Discharge coordination time: Greater than 30 minutes Quality: Safe Use of Opioids Does Pt have an Active Cancer Diagnosis on the Problem List?: No Quality: Stroke Does the patient have a stroke diagnosis?: No Physical Exam Vital Signs: Vital Signs: Last Vital Signs Temp 98.6 F 08/03/22 12:00 Pulse 69 08/03/22 12:00 Resp 18 08/03/22 12:00 BP 126/72 08/03/22 12:00 Pulse Ox 94 08/03/22 12:00 O2 Del Method 08/03/22 12:00 O2 Flow Rate 2 08/03/22 03:05 BMI result Body Mass Index 33.0 Const: Other: Patient alert oriented x3, no acute distress Resp: Other: clear to auscultation bilaterally GI: Other: abdomen is soft, nontender, normal bowel sounds Extrem: Other: no lower extremity edema DS: Data Data Completed and Pending Labs on day of discharge: Laboratory Results - last 24 hr 08/02/22 08/02/22 08/02/22 16:17 19:15 22:23 aPTT Heparin Protocol 46.5 L D 87.4 H D Sodium 138 Potassium 3.9 Chloride 102 Carbon Dioxide 22 Anion Gap 18 BUN 14 D Creatinine 0.84 Estim Creat Clear Calc 85.6 Estimated GFR > 60 Random Glucose 210 H Calcium 9.2 Magnesium 1.9 08/03/22 08/03/22 05:41 12:35 aPTT Heparin Protocol 62.3 D 53.2 Sodium Potassium Chloride Carbon Dioxide Anion Gap BUN Creatinine Estim Creat Clear Calc Estimated GFR Random Glucose Calcium Magnesium Discharge Plan Discharge Anticipated Discharge Date/Time: 08/03/22 16:02 Patient Disposition: Xfer Acute Care Hospital Discharge Diagnosis: NSTEMI Referrals: Physician,Unknown J [Primary Care Provider] - 1 Week Discharge Medications: New atorvastatin 40 mg Tablet 40 mg PO BEDTIME 30 Days Qty: 30 0RF clopidogrel 75 mg Tablet 75 mg PO DAILY 30 Days Qty: 30 0RF aspirin 81 mg Tablet,Delayed Release (Dr/Ec) 81 mg PO DAILY 30 Days Qty: 30 0RF lisinopril 10 mg Tablet 10 mg PO DAILY 30 Days Qty: 30 0RF Protocol: Hold for SBP< HOLD for SBP < : 90 nicotine 21 mg/24 hr Patch 24 Hour 21 mg transdermal DAILY 10 Days Qty: 10 0RF metoprolol tartrate 25 mg Tablet 25 mg PO BID 30 Days Qty: 60 0RF Protocol: Hold for SBP/HR < HOLD for SBP < : 90 HOLD for HR < : 60 Discontinued atorvastatin 10 mg tablet 10 mg PO DAILY Diet: Advance to usual diet Activity on Discharge: As tolerated Stand Alone Forms: Patient Portal Discharge page Care Plan Goals: you are being transferred to acute care hospital for cardiac Cath Health Concerns: NSTEMI Plan of Treatment: Cardiac catheterization at outside hospital please follow with recommended discharge meds per [facility] Assessment: see above
[2022-08-03 16:00] VITALS: BP 152/75; PULSE 66; TEMP 36.8; O2SAT 95
[2022-08-03 20:00] VITALS: BP 131/71; PULSE 67; RESP 18; TEMP 37.2; O2SAT 91
[2022-08-03] MEDS: Atorvastatin Calcium 40 MG TABLET PO (20:41)
== END 2022-08-03 22:38 | disposition short-term general hospital (02) | DRG 190 ==
LOC: HO.ED 20:19 → HO.EDOVER 22:57 → HO.IMC 08-02 14:38
PROVIDERS: Internal Medicine Cardiovascular Disease; Physician Assistant; Physician Assistant Medical; Admitting Provider Student in an Organized Health Care Education/Training Program; Emergency Provider Student in an Organized Health Care Education/Training Program; Visit Provider Internal Medicine
DX: I21.4 Non-ST elevation (NSTEMI) myocardial infarction (principal); E78.2 Mixed hyperlipidemia; F17.210 Nicotine dependence, cigarettes, uncomplicated; K21.9 Gastro-esophageal reflux disease without esophagitis; I10 Essential (primary) hypertension; Z20.822 Contact with and (suspected) exposure to COVID-19; Z71.6 Tobacco abuse counseling; Z79.02 Long term (current) use of antithrombotics/antiplatelets; Z79.82 Long term (current) use of aspirin; Z79.899 Other long term (current) drug therapy
CPT/HCPCS: 0241U; 36415; 71046; 80048; 80053; 80061; 81001; 83036; 83735; 84484; 85025; 85027; 85379; 85610; 85730; 93005; 93306; 99285; Q9957

== ENCOUNTER → 2022-11-19 07:45 | Outpatient (REF) | payer OTHER, SELFPAY ==
--- NOTE | 2022-11-19 07:48 | CA_ITS ---
Transthoracic Echocardiogram Patient (Last, First, Middle): Joyce Hernandez A Gender: Female Date of : 1960 Age: 62 Procedure Date: 11/19/2022 Procedure Type: Transthoracic Echocardiogram Location: OP Height: 165.1 cm Weight: 92.99 kg BSA: 2.00 m2 Heart Rate: bpm BP: 140 / 80 mmHg Ambulance Operations Supervisor: Referring MD: Shorty Moody MD Customer Experience Leader: Irving Flores MD Symptoms: I42.9 - Cardiomyopathy, unspecified Study Quality: Good ECG Rhythm: Sinus Conclusions: - Essentially normal study with grade 1 diastolic dysfunction Findings Left Ventricle Normal left ventricular size, thickness, and systolic function. The visually estimated ejection fraction is between 55-60%. Spectral Doppler is indicative of an impaired relaxation filling pattern. E/E prime ratio is <8, consistent with normal filling pressures. Evidence suggests grade I (mild) diastolic dysfunction. Peak GLS is -18.6%, within normal limits Right Ventricle Normal right ventricular cavity size and systolic function. Atria Both atria are normal in size. There is no evidence of interatrial shunt. Aortic Valve Normal aortic valve structure and function. There is no aortic valve stenosis. There is no aortic valve regurgitation. Mitral Valve Normal mitral valve structure and function. There is trace mitral valve regurgitation. There is no mitral valve stenosis. Pulmonic Valve The pulmonic valve is likely normal. Tricuspid Valve Normal tricuspid valve structure. Tricuspid regurgitation envelope is inadequate for calculation of right ventricular systolic pressure. Normal right atrial pressure. Great Vessels All visible segments of the aorta are normal in size. The pulmonary artery was not well visualized. Venous The inferior vena cava is normal in size and collapses greater than 50% with inspiration. Pericardium/Pleural There is no evidence of pericardial effusion. Measurements 2D Linear Measurements IVSd: 1.15 0.6-0.9/0.6-1.0 cm LVIDd: 4.67 3.9-5.3/4.2-5.9 cm LVIDd Index: 2.34 2.4-3.2/2.2-3.1 cm/m2 LVIDs: 3.16 2.0-3.6 cm LVPWd: 1.12 0.7-1.1 cm LV Mass: 241.70 67-162/88-224 g LV Mass Index: 120.85 43-95/49-115 g/m2 LVOT Diam: 2.10 3.0+(-)1.3 cm 2D Systolic Function EF 4C: 57.40 >55% EF 2C: 62.70 >55% EF BiP: 61.10 >55% LVOT LVOT Pk Stefano: 1.17 LVOT Mn Stefano: 0.73 LVOT VTI: 0.29 LVOT Pk Grad: 5.00 LVOT Mn Grad: 3.00 LVOT Diam: 2.10 LVOT Area: 3.46 Right Ventricle TAPSE (mm): 23.00 TVS' Stefano: 12.00 Updated in Other Vendor System with Status of Final Irving Flores MD electronically signed on 11/20/2022 5:17:28 PM with status of Final
== END ==
LOC: HO.CARD 07:45
PROVIDERS: Visit Provider Internal Medicine Cardiovascular Disease
DX: I42.9 Cardiomyopathy, unspecified (principal)
CPT/HCPCS: 93308; 93356

== ENCOUNTER 2022-12-24 09:33 | Inpatient (IN) | payer OTHER, SELFPAY ==
--- NOTE | ~2022-12-24 | CT_ITS ---
EXAMINATION: CT ABDOMEN AND PELVIS WITH CONTRAST CLINICAL INFORMATION: Abdominal pain COMPARISON: None available. TECHNIQUE: Multidetector volumetric images were obtained from the superior aspect of the liver through the pubic symphysis following administration 85 mL of Omnipaque 350 intravenous contrast. Sagittal and coronal reformatted images were obtained on the technologist's workstation. Oral contrast: No This CT examination was performed using dose optimization techniques as appropriate, variously including the following: *Automated exposure control *Adjustment of mA and/or kV according to patient size (this includes techniques or standardized protocols for targeted exams where dose is matched to indication/reason for exam; i.e. extremities or head) *Use of iterative reconstruction technique DLP: 756 mGy-cm FINDINGS: LUNG BASES: The visualized lung bases are unremarkable. LIVER, GALLBLADDER, AND BILIARY TREE: The liver is enlarged at 19.3 cm in cephalocaudad dimension and demonstrates decreased attenuation suggesting hepatic steatosis. No focal hepatic lesion or biliary ductal dilatation is present. The gallbladder is unremarkable with no evidence of radiopaque gallstones, gallbladder wall thickening, or obvious pericholecystic inflammatory changes. PANCREAS: Unremarkable. SPLEEN: Unremarkable. ADRENAL GLANDS: Unremarkable. KIDNEYS AND URETERS: The kidneys are normal in size, shape, and attenuation. No hydronephrosis, hydroureter, or calculi seen. No perinephric stranding. BLADDER: Unremarkable. GASTROINTESTINAL TRACT: Diverticular changes are noted in the colon. There is an area of acute uncomplicated diverticulitis present in the distal descending colon/sigmoid with pericolonic inflammatory change. There is no extraluminal gas or pericolonic fluid collections. There is some thickening of the lateral conal fascia. There is some minimally dilated adjacent loops of small bowel which may be secondary to a focal ileus. The small and large bowel are otherwise unremarkable. The appendix is unremarkable. ABDOMINAL WALL: No significant hernia is appreciated. LYMPH NODES: Normal. VASCULAR: Unremarkable. PELVIC VISCERA: An IUD is present in the anteverted uterus. An abnormal adnexal mass or free intraperitoneal fluid is not seen. OSSEOUS STRUCTURES: Mild degenerative changes seen in the spine from the visualized lower thoracic region through L3. No bony destruction. CT/CT abdomen pelvis w IV con IMPRESSION: 1. Acute uncomplicated diverticulitis involving the distal descending colon/sigmoid. 2. Enlarged fatty liver. Fleischner guidelines were followed.
[2022-12-24 09:53] VITALS: BP 133/71; PULSE 110; RESP 18; TEMP 36.8; O2SAT 96; BMI 33.0
--- NOTE | 2022-12-24 10:41 | ECG_ITS ---
Test Reason : abdominal pain Blood Pressure : / mmHG Vent. Rate : 104 BPM Atrial Rate : 104 BPM P-R Int : 144 ms QRS Dur : 076 ms QT Int : 338 ms P-R-T Axes : 048 042 053 degrees QTc Int : 444 ms Sinus tachycardia Nonspecific T wave abnormality Abnormal ECG When compared with ECG of 02-AUG-2022 18:22, Nonspecific T wave abnormality now evident in Inferior leads Nonspecific T wave abnormality now evident in Anterior leads Nonspecific T wave abnormality, improved in Lateral leads Referred By: Dee Reyes Electronically Signed By:Shorty Moody
--- NOTE | 2022-12-24 10:51 | ED_ITS ---
HPI - Abdominal Pain General Chief Complaint: Abdominal Pain Stated Complaint: abd pain Time Seen by Provider: 12/24/22 10:30 Source: patient and RN notes reviewed Mode of arrival: ambulatory Limitations: no limitations History of Present Illness HPI narrative: This is a 62-year-old female, with a past medical history of NSTEMI on clopidogrel, who presents to the emergency department today with complaints of abdominal pain x 5 days, worsening last night. Patient reports that she first felt abdominal pain last Thursday which was waxing and weaning until last night when her pain became severe. She reports the pain is diffusely throughout her abdomen that radiates into her epigastrium, without any point tenderness. She has been unable to move her bowels since Thursday. Denies any nausea, vomiting, diarrhea. She denies any urinary symptoms. No fevers or chills. Denies chest pain, shortness of breath, or palpitations. She had a cholecystectomy 20 years ago otherwise no other abdominal surgeries. No other complaints or concerns at this time. MD elicited complaint: abdominal pain Pertinent past history: constipation and myocardial infarction Onset (ago): day(s) Pain Consistency: constant Location: diffuse Severity: severe Pain scale (0-10): 9 Quality: cramping, aching and fullness Radiation: epigastric Migration to: no migration Exacerbating factors: nothing Relieving factors: nothing Treatments prior to arrival: NSAIDs Related Data Home Medications Medication Instructions Recorded Confirmed amlodipine 5 mg tablet 5 mg PO DAILY 08/27/22 08/27/22 atorvastatin 80 mg tablet 80 mg PO DAILY 08/27/22 08/27/22 isosorbide mononitrate 30 mg 30 mg PO QAM 08/27/22 08/27/22 tablet,extended release 24 hr albuterol sulfate 90 mcg/actuation 2 puff inhalation Q4-6H PRN 12/24/22 aerosol inhaler Wheezing budesonide 90 mcg/actuation breath 2 inh inhalation BID 12/24/22 activated powder inhaler (Pulmicort Flexhaler) nicotine 21 mg/24 hr daily 1 patch topical DAILY 12/24/22 transdermal patch Previous Rx's Medication Instructions Recorded aspirin 81 mg tablet,delayed 81 mg PO DAILY 30 days #30 tabs 08/03/22 release clopidogrel 75 mg tablet 75 mg PO DAILY 30 days #30 tabs 08/03/22 lisinopril 10 mg tablet 10 mg PO DAILY 30 days #30 tabs 08/03/22 Allergies Allergy/AdvReac Type Severity Reaction Status Date / Time No Known Allergies Allergy Mild UNKNOWN Verified 08/27/22 12:36 Review of Systems Review of Systems Yes all other systems are reviewed and are negative [facility] Past Medical History Attestation statement: The following information was validated with the patient. Medical History Essential hypertension High cholesterol Surgical History History of cardiac cath History of cholecystectomy History of foot surgery History of tubal ligation Family History Family History Mother Heart disease Father Heart attack Social History Social History Household Members: Family Housing: House Alcohol intake: current Alcohol intake frequency: a few times a week Alcohol type: beer Patient Tobacco Use Status: Current everyday Tobacco user Tobacco use type: Cigarette Cigarette Packs Per Day: 0.5 Cigarettes Per Day: 10 Years Smoked: 42 +/- Advance Directives: No service: No Current occupational status: employed 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 Oriented X3. Appears uncomfortable secondary to pain. Eyes: Pupils equal, round and reactive to light. EOMI ENT: Pharynx normal. Oral pharynx is nonerythematous, nonedematous, nonexudative. Neck: Normal inspection. Neck supple. CVS: Normal heart rate and rhythm. Pulses normal. S1S2 regular. Respiratory: No respiratory distress. Good airmovement but expiratory wheezes heard anteriorly and posteriorly in the right upper and right lower lung moreau. Abdomen: Abdomen is soft, but exquisite tenderness noted diffusely throughout the abdomen without point tenderness. Hypoactive bowel sounds noted. Skin: Skin warm and dry. Normal skin color. Normal skin turgor. No rashes. Extremities: No lower extremity edema. Neuro: Oriented X 3. No motor deficit. No sensory deficit. Course Reevaluation(s) Reevaluation #1: Leukocytosis at 16.1, likely reactive secondary to pain, I do not suspect infection at this time. Lactic and blood cultures ordered. Time: 11:19 Reevaluation #2: CT abdomen still pending, patient re-evaluated appears uncomfortable secondary to pain. Counseled patient that we can premedicate patient prior to pain medication administration to help alleviate nausea side effects with opioids. Patient agreeable. Morphine 2 mg IV and Zofran 4 mg IV ordered. Time: 13:31 Reevaluation #3: CT abdomen reveals acute uncomplicated diverticulitis involving the distal descending colon/sigmoid. Based on patient's elevated WBC 16.1, tachycardia at 110bpm, and known infection, infection now suspected. Results discussed with patient. Patient reports her pain has improved with morphine, and has had no nausea side effects. IV flagyl and IV levaquin and 1L IV fluids ordered. Discussed case with medicine who accepts transfer of care. Time: 14:09 Medical Decision Making Medical Decision Making [facility] Narrative: 62-year-old female, with a past medical history NSTEMI on clopidogrel, who presents to the emergency department today for evaluation of diffuse abdominal pain which began 5 days ago, worsened last night. Patient is tachycardic at 110bpm likely due to pain, all other vital signs within normal limits. On examination, patient's abdomen is soft, however diffuse tenderness with guarding throughout the entire abdomen without any point tenderness. Hypoactive bowel sounds. Patient appears uncomfortable secondary to pain. Limited options for pain management due to her being on clopidogrel; pt refused any narcotics as she gets significantly nauseous. Discussed that I can premedicate her with antiemetics however patient still refuses pain medication. Plan: Labs, EKG, CT abdomen and pelvis with IV contrast. Differential Diagnosis Differential Diagnoses: The differential diagnosis associated with the presentation includes Constipation, urinary tract infection, diverticulosis, diverticulitis, bowel obstruction, ischemic bowel, appendicitis, gastroenteritis, Admission/Observation Consideration of admission/observation: Escalation of care including a dmission/observation considered Consult Healthcare Provider Management of the patient was discussed with: Hospitalist Lab Data [facility] Lab Attestation statement: I reviewed the patient's lab results. 12/24/22 10:55 12/24/22 10:55 Labs: Lab Results 04/02/1012/24/22 12/24/22 Range/Units 10:55 10:55 10:55 WBC 16.1 H (4.8-10.8) X10*3/uL RBC 4.20 (4.20-5.50) X10*6/uL Hgb 13.2 (12.0-16.0) g/dl Hct 40.5 (37.0-47.0) % MCV 96.4 (80.0-98.0) fL MCH 31.4 (27.0-33.0) pg MCHC 32.6 (31.0-35.0) g/dl RDW 13.3 (11.0-16.0) % Plt Count 320 (160-400) X10*3/uL MPV 9.6 (9.4-12.3) fL Immature Gran % (Auto) 0.4 (0.0-0.4) % Neut % (Auto) 89.2 H (45-73) % Lymph % (Auto) 5.5 L (20-40) % [place] % (Auto) 4.5 (2-11) % Eos % (Auto) 0.1 (0-4) % Baso % (Auto) 0.3 (0-2) % Lymph # (Auto) 0.9 L (1.2-4.9) X10*3/uL [place] # (Auto) 0.7 (0.1-1.2) X10*3/uL Eos # (Auto) 0.0 (0.0-0.4) X10*3/uL Baso # (Auto) 0.1 (0.0-0.2) X10*3/uL Abs Immat Gran (auto) 0.07 H (0.00-0.03) X10*3/uL Absolute Neuts (auto) 14.4 H (2.0-8.3) x10*3/uL Absolute Nucleated RBC 0.000 (0.0-0.012) X10*3/uL Nucleated RBC % (auto) 0.0 (0.0-0.2) /100WBC Sodium 138 (135-145) mmol/L Potassium 4.5 (3.3-5.1) mmol/L Chloride 103 (96-108) mmol/L Carbon Dioxide 26 (22-29) mmol/L Anion Gap 14 (12-20) BUN 14 (9-16) mg/dL Creatinine 0.77 (0.5-1.4) mg/dL Estim Creat Clear Calc 89.3 Estimated GFR > 60 Random Glucose 159 H (60-115) mg/dL Lactic Acid (0.5-2.0) mmol/L Calcium 9.2 (8.4-10.2) mg/dL Magnesium 1.9 (1.6-2.6) mg/dL Total Bilirubin 2.1 H (0.0-1.0) mg/dL Direct Bilirubin 0.7 H (0.0-0.5) mg/dL AST 11 (5-31) U/L ALT 11 (0-31) U/L Alkaline Phosphatase 104 (39-117) U/L Troponin I High Sens (<3.5-17.0) ng/L Total Protein 6.7 (6.5-8.0) g/dL Albumin 3.7 (3.5-5.0) g/dL Lipase 7 L (8-78) U/L Influenza Type A (PCR) (Negative) Influenza Type B (PCR) (Negative) RSV RNA Qual (PCR) (Negative) SARS-CoV-2 RNA (RT-PCR) (Negative) 12/24/22 12/24/22 12/24/22 Range/Units 10:55 10:55 11:37 WBC (4.8-10.8) X10*3/uL RBC (4.20-5.50) X10*6/uL Hgb (12.0-16.0) g/dl Hct (37.0-47.0) % MCV (80.0-98.0) fL MCH (27.0-33.0) pg MCHC (31.0-35.0) g/dl RDW (11.0-16.0) % Plt Count (160-400) X10*3/uL MPV (9.4-12.3) fL Immature Gran % (Auto) (0.0-0.4) % Neut % (Auto) (45-73) % Lymph % (Auto) (20-40) % [place] % (Auto) (2-11) % Eos % (Auto) (0-4) % Baso % (Auto) (0-2) % Lymph # (Auto) (1.2-4.9) X10*3/uL [place] # (Auto) (0.1-1.2) X10*3/uL Eos # (Auto) (0.0-0.4) X10*3/uL Baso # (Auto) (0.0-0.2) X10*3/uL Abs Immat Gran (auto) (0.00-0.03) X10*3/uL Absolute Neuts (auto) (2.0-8.3) x10*3/uL Absolute Nucleated RBC (0.0-0.012) X10*3/uL Nucleated RBC % (auto) (0.0-0.2) /100WBC Sodium (135-145) mmol/L Potassium (3.3-5.1) mmol/L Chloride (96-108) mmol/L Carbon Dioxide (22-29) mmol/L Anion Gap (12-20) BUN (9-16) mg/dL Creatinine (0.5-1.4) mg/dL Estim Creat Clear Calc Estimated GFR Random Glucose (60-115) mg/dL Lactic Acid 1.3 (0.5-2.0) mmol/L Calcium (8.4-10.2) mg/dL Magnesium (1.6-2.6) mg/dL Total Bilirubin (0.0-1.0) mg/dL Direct Bilirubin (0.0-0.5) mg/dL AST (5-31) U/L ALT (0-31) U/L Alkaline Phosphatase (39-117) U/L Troponin I High Sens 2.9 D (<3.5-17.0) ng/L Total Protein (6.5-8.0) g/dL Albumin (3.5-5.0) g/dL Lipase (8-78) U/L Influenza Type A (PCR) NEGATIVE (Negative) Influenza Type B (PCR) NEGATIVE (Negative) RSV RNA Qual (PCR) NEGATIVE (Negative) SARS-CoV-2 RNA (RT-PCR) NEGATIVE (Negative) Independent Interpretation I performed an independent interpretation of an: EKG Interpretation: EKG sinus tachycardia at a ventricular rate of 104. Normal VT interval at 144ms, QRS 76, QTC 444. No STEMI. Prescription Management I considered prescription management with: Pain Medication and Antibiotic Medications Administered Generic Name Dose Route Start Last Admin Trade Name Freq PRN Reason Stop Dose Admin Metronidazole 500 mg in 100 mls @ 100 mls/hr 12/24/22 14:10 12/24/22 14:22 Flagyl IV 12/24/22 15:09 100 mls/hr ONCE ONE Administration Sodium Chloride 1,000 mls @ 999 mls/hr 12/24/22 14:45 12/24/22 14:51 Ns IVCONT 12/24/22 16:45 999 mls/hr .Q1H1M BRYON Administration Discontinued Medications Generic Name Dose Route Start Last Admin Trade Name Freq PRN Reason Stop Dose Admin Iohexol 85 ml 12/24/22 11:47 12/24/22 11:50 Iohexol 350 Mg/Ml 75 Ml Infus..Btl IV 12/24/22 11:48 85 ml ONCE ONE Administration Morphine Sulfate 2 mg 12/24/22 13:29 12/24/22 13:43 Morphine Sulfate 4 Mg/Ml Cartridge IVPUSH 12/24/22 13:30 2 mg ONCE ONE Administration Protocol Ondansetron HCl 4 mg 12/24/22 13:29 12/24/22 13:43 Ondansetron Hcl 4 Mg/2 Ml Vial IVPUSH 12/24/22 13:30 4 mg ONCE ONE Administration Discharge Plan Discharge Clinical Impression: Diverticulitis Patient Disposition: Admitted As Inpatient
[2022-12-24 11:03] LABS: MANUAL DIFF FLAG NO
[2022-12-24 11:05] LABS: Basophils Absolute Auto 0.1 X10*3/uL (0.0-0.2); Basophils Percent Auto 0.3 % (0-2); Eosinophils Percent Auto 0.1 % (0-4); Hematocrit 40.5 % (37.0-47.0); Hemoglobin 13.2 g/dl (12.0-16.0); Imm Gran Abs Auto 0.07 X10*3/uL (0.00-0.03); Imm Gran Pct Auto 0.4 % (0.0-0.4); Lymphocytes Absolute Auto 0.9 X10*3/uL (1.2-4.9); Lymphocytes Percent Auto 5.5 % (20-40); Mean Corpuscular HGB Conc 32.6 g/dl (31.0-35.0); Mean Corpuscular Hemoglobin 31.4 pg (27.0-33.0); Mean Corpuscular Volume 96.4 fL (80.0-98.0); Mean Platelet Volume 9.6 fL (9.4-12.3); Monocytes Absolute Auto 0.7 X10*3/uL (0.1-1.2); Monocytes Percent Auto 4.5 % (2-11); Neutrophils Absolute Auto 14.4 x10*3/uL (2.0-8.3); Neutrophils Percent Auto 89.2 % (45-73); Platelet Count 320 X10*3/uL (160-400); Red Cell Distribution Width 13.3 % (11.0-16.0); White Blood Count 16.1 X10*3/uL (4.8-10.8)
[2022-12-24 11:18] LABS: Anion Gap 14 (12-20); Blood Urea Nitrogen 14 mg/dL (9-16); Calcium 9.2 mg/dL (8.4-10.2); Carbon Dioxide 26 mmol/L (22-29); Chloride 103 mmol/L (96-108); Creatinine Clr Calc Pharmacy 89.3; Estimated Glomerular Filt Rate > 60; Glucose Random 159 mg/dL (60-115); Potassium 4.5 mmol/L (3.3-5.1); Sodium 138 mmol/L (135-145)
[2022-12-24 11:25] LABS: Alanine Aminotransferase 11 U/L (0-31); Albumin Level 3.7 g/dL (3.5-5.0); Alkaline Phosphatase 104 U/L (39-117); Aspartate Amino Transferase 11 U/L (5-31); Bilirubin Direct 0.7 mg/dL (0.0-0.5); Bilirubin Total 2.1 mg/dL (0.0-1.0); Lipase 7 U/L (8-78); Magnesium 1.9 mg/dL (1.6-2.6); Total Protein 6.7 g/dL (6.5-8.0)
[2022-12-24 11:26] LABS: Troponin-I High Sensitivity 2.9 ng/L (<3.5-17.0)
[2022-12-24] MEDS: iohexoL 350 MG/ML 75 ML INFUS..BTL 85 ML IV (11:50)
[2022-12-24 11:54] LABS: Lactic Acid 1.3 mmol/L (0.5-2.0)
[2022-12-24 11:58] LABS: Influenza A PCR NEGATIVE (Negative); Influenza B PCR NEGATIVE (Negative); Resp Syncy Virus RNA Qual PCR NEGATIVE (Negative); SARS COV2 PCR INHOUSE NEGATIVE (Negative)
[2022-12-24] MEDS: Morphine Sulfate 4 MG/ML CARTRIDGE 2 MG IVPUSH ×3 (13:43→23:03)
[2022-12-24] MEDS: ondansetron HCL 4 MG/2 ML VIAL IVPUSH (13:43)
[2022-12-24] MEDS: metroNIDAZOLE/NS 500 MG/100 ML PIGGYBACK 100 MG IV ×2 (14:22→22:57)
[2022-12-24] MEDS: 0.9 % Sodium Chloride 1,000 ML 999 ML IVCONT ×2 (14:51→16:14)
[2022-12-24] MEDS: Nicotine 14 MG PATCH.TD24 TRANSDERMA (15:33)
[2022-12-24] MEDS: levoFLOXacin/D5W 750 MG/150 ML PIGGYBACK 100 MG IV (15:33)
[2022-12-24] MEDS: Enoxaparin Sodium 40 MG/0.4 ML SYRINGE SUBCUT (15:33)
--- NOTE | 2022-12-24 15:56 | PHA.MEDREC ---
MED REC COMPLETE, NO ISSUES Pharmacy Consult ? Medication Reconciliation Pharmacy has completed the medication reconciliation.
[2022-12-24] MEDS: 0.9 % Sodium Chloride Flush 3 ML SYRINGE IVFLUSH (16:14)
[2022-12-24 16:20] VITALS: BP 109/53; PULSE 113; RESP 15; TEMP 37.8; O2SAT 91
--- NOTE | 2022-12-24 16:22 | P.HPHOSP_ITS ---
History of Present Illness Date of Service: 12/24/22 Chief Complaint: Abd pain A 62 years old lady with PMH of CAD, CMP, smoker who presents to the hospital complaining of 5 days of abdominal pain. The patient reports that she started to feel pain all over her abdomen which has been progressively getting worse associated with nausea, constipation and decrease appetite. denies any fever or chills. no reported chest pain, SOB , dyspnea, urinary symptoms. denies hx of colonoscopy before. In ED a CT scan showed evidence of acute uncomplicated diverticulitis. Admitted for further eval and treatment. Review of Systems Review of Systems: No fever, chills or weakness No chest pain, palpitation No shortness of breath or coughing abdominal pain, with nausea No urinary symptoms No any rash or wounds PMFSH Medical History Essential hypertension High cholesterol Family History Mother Heart disease Father Heart attack Surgical History History of cardiac cath History of cholecystectomy History of foot surgery History of tubal ligation Social History Household Members: Family Housing: House Alcohol intake: current Alcohol intake frequency: a few times a week Alcohol type: beer Patient Tobacco Use Status: Current everyday Tobacco user Tobacco use type: Cigarette Cigarette Packs Per Day: 0.5 Cigarettes Per Day: 10 Years Smoked: 42 +/- Advance Directives: No service: No Current occupational status: employed 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 Meds Allergies Allergy/AdvReac Type Severity Reaction Status Date / Time No Known Allergies Allergy Mild UNKNOWN Verified 08/27/22 12:36 Active Medications: Current Medications Acetaminophen (Acetaminophen 325 Mg Tablet) 650 mg PO Q6H PRN PRN Reason: Pain, Mild (Pain Scale 1-3) Enoxaparin Sodium (Enoxaparin Sodium 40 Mg/0.4 Ml Syringe) 40 mg SUBCUT Q24H [facility] Last Admin: 12/24/22 15:33 Dose: 40 mg Sodium Chloride (Ns) 1,000 mls @ 999 mls/hr IVCONT .Q1H1M [facility] Stop: 12/24/22 16:45 Last Admin: 12/24/22 16:14 Dose: 999 mls/hr Dextrose/Sodium Chloride (D5ns) 1,000 mls @ 100 mls/hr IVCONT .Q10H [facility] Metronidazole (Flagyl) 500 mg in 100 mls @ 100 mls/hr IV Q8H [facility]ON Levofloxacin (Levaquin) 750 mg in 150 mls @ 100 mls/hr IV Q24H [facility] Morphine Sulfate (Morphine Sulfate 4 Mg/Ml Cartridge) 2 mg IVPUSH Q4H PRN; Protocol PRN Reason: Pain, Severe (Pain Scale 7-10) Nicotine (Nicotine 14 Mg Patch.Td24) 14 mg TRANSDERMA DAILY [facility] Last Admin: 12/24/22 15:33 Dose: 14 mg Ondansetron HCl (Ondansetron Hcl 4 Mg/2 Ml Vial) 4 mg IVPUSH Q8H PRN PRN Reason: Nausea and Vomiting Pharmacy Consult (Consult Rx Perform Med Rec) 1 each MISCELLANE ONCE PRN PRN Reason: Consult order Sodium Chloride (0.9 % Sodium Chloride Flush 3 Ml Syringe) 3 ml IVFLUSH QSHIFT [facility] Last Admin: 12/24/22 16:14 Dose: 3 ml Home Medications Medication Instructions Recorded Confirmed Last Taken Type amlodipine 5 mg tablet 5 mg PO DAILY 08/27/22 12/24/22 12/24/22 History atorvastatin 80 mg tablet 80 mg PO DAILY 08/27/22 12/24/22 12/24/22 History isosorbide mononitrate 30 mg 30 mg PO DAILY 08/27/22 12/24/22 12/24/22 History tablet,extended release 24 hr albuterol sulfate 90 mcg/actuation 2 puff inhalation Q4-6H PRN 12/24/22 12/24/22 Unknown History aerosol inhaler Wheezing nicotine 21 mg/24 hr daily 1 patch topical DAILY 12/24/22 12/24/22 Unknown History transdermal patch Physical Exam Vital Signs and Narrative: Vital Signs: Last Vital Signs Temp 98.2 F 12/24/22 09:53 Pulse 110 H 12/24/22 09:53 Resp 18 12/24/22 09:53 BP 133/71 12/24/22 09:53 Pulse Ox 96 12/24/22 09:53 O2 Del Method Room Air 12/24/22 09:53 BMI result Body Mass Index 33.0 Const: Other: Constitutional : Awake, interactive, not in distress Neck : Normal inspection, Supple Cardiovascular : RRR, no JVP, no lower extremity edema Respiratory : good bilateral air entry, no crackles, wheezes or rhonchi Gastrointestinal: soft, lax, Normal bowel sounds, generalized tenderness more in LLQ with no surgical signs Skin : Warm, Dry Neurological : Alert & oriented x3, No focal deficit Results Labs 12/24/22 10:55 12/24/22 10:55 Labs: Laboratory Results - last 24 hr 12/24/22 12/24/22 12/24/22 10:55 10:55 10:55 MCV 96.4 MCH 31.4 MCHC 32.6 RDW 13.3 Plt Count 320 MPV 9.6 Immature Gran % (Auto) 0.4 Neut % (Auto) 89.2 H Lymph % (Auto) 5.5 L Power % (Auto) 4.5 Eos % (Auto) 0.1 Baso % (Auto) 0.3 Lymph # (Auto) 0.9 L Power # (Auto) 0.7 Eos # (Auto) 0.0 Baso # (Auto) 0.1 Abs Immat Gran (auto) 0.07 H Absolute Neuts (auto) 14.4 H Absolute Nucleated RBC 0.000 Nucleated RBC % (auto) 0.0 Anion Gap 14 Estim Creat Clear Calc 89.3 Estimated GFR > 60 Random Glucose 159 H Lactic Acid Calcium 9.2 Magnesium 1.9 Total Bilirubin 2.1 H Direct Bilirubin 0.7 H AST 11 ALT 11 Alkaline Phosphatase 104 Troponin I High Sens Total Protein 6.7 Albumin 3.7 Lipase 7 L Influenza Type A (PCR) Influenza Type B (PCR) RSV RNA Qual (PCR) SARS-CoV-2 RNA (RT-PCR) 12/24/22 12/24/22 12/24/22 10:55 10:55 11:37 MCV MCH MCHC RDW Plt Count MPV Immature Gran % (Auto) Neut % (Auto) Lymph % (Auto) Power % (Auto) Eos % (Auto) Baso % (Auto) Lymph # (Auto) Power # (Auto) Eos # (Auto) Baso # (Auto) Abs Immat Gran (auto) Absolute Neuts (auto) Absolute Nucleated RBC Nucleated RBC % (auto) Anion Gap Estim Creat Clear Calc Estimated GFR Random Glucose Lactic Acid 1.3 Calcium Magnesium Total Bilirubin Direct Bilirubin AST ALT Alkaline Phosphatase Troponin I High Sens 2.9 D Total Protein Albumin Lipase Influenza Type A (PCR) NEGATIVE Influenza Type B (PCR) NEGATIVE RSV RNA Qual (PCR) NEGATIVE SARS-CoV-2 RNA (RT-PCR) NEGATIVE Imaging Radiologist's Impressions: Impressions Abdomen/Pelvis CT 12/24/22 11:52 IMPRESSION: 1. Acute uncomplicated diverticulitis involving the distal descending colon/sigmoid. 2. Enlarged fatty liver. Fleischner guidelines were followed. Assessment and Plan (1) Diverticulitis: Status: Acute (2) Sepsis: Status: Acute Plan A 62 years old lady with PMH of CAD, CMP, smoker who presents to the hospital complaining of 5 days of abdominal pain. Sepsis 2/2 acute diverticulitis pending cultures Levaquin and Flagyl NPO IVF advance diet as tolerated Constipation Colace and Sinna Hx CAD ASA, Plavix Lisinipril, Isosorbide and amlodipine Statin smoker advised to quit NRT DVT PPx Lovenox The paitnet will need 2 overnight hospital stay to treat Diverticulitis pending final blood cultures Time Spent With Patient Time: Total time managing care of this patient today ____ minutes. Quality Stroke Does the patient have a stroke diagnosis?: No VTE Prior VTE?: No VTE Risk Level:: Medical - moderate - high VTE Device Contraindication: Treatment Not Indicated VTE Drug Contraindication: N/A - Med Ordered
[2022-12-24] MEDS: Docusate Sodium 100 MG CAPSULE PO (19:07)
[2022-12-24 19:37] VITALS: BP 112/68; PULSE 108; RESP 18; TEMP 38.2; O2SAT 92
[2022-12-24] MEDS: Acetaminophen 325 MG TABLET 650 MG PO (19:43)
--- NOTE | 2022-12-24 19:43 | PC.NURSE ---
This tech writer assumed care of this Pt at 1900. Pt A&Ox4, reports 5/10 all over ABD pain. Temp of 100.7 oral, med given as documented. o2 92% on 2L NC, denies any SOB. CIWA score 0, Pt reports last alcohol drink yesterday at 6pm. RN to RN report given to Iman POE, Pt will be transported to room 358, Pt aware of plan.
[2022-12-24] MEDS: Dextrose 5 % and 0.9 % NaCl 1,000 ML 100 ML IVCONT (19:56)
[2022-12-24 20:33] VITALS: BP 108/59; PULSE 119; RESP 22; TEMP 37.3; O2SAT 91
--- NOTE | 2022-12-24 20:45 | MHC.CM.PN ---
CM met with admitted patient with bed assignment. Pt lives with her mother and sometimes with HCP/boyfriend Arpit Chavez ([phone]). HCP on file. Drives. Employed. [employer]. No DME/services. [employer]. D/C plan: Home without services. Pt will drive herself or can arrange a ride if needed. CM will follow for discharge needs.
[2022-12-24 22:55] VITALS: PULSE 93; RESP 20; TEMP 37.4; O2SAT 95
[2022-12-24 23:15] VITALS: BMI 34.4
[2022-12-25] VITALS: BP 110/58
[2022-12-25 04:08] VITALS: BP 121/67; PULSE 105; RESP 16; TEMP 37.7; O2SAT 95
[2022-12-25] MEDS: Acetaminophen 325 MG TABLET 650 MG PO (05:54)
[2022-12-25] MEDS: metroNIDAZOLE/NS 500 MG/100 ML PIGGYBACK 100 MG IV ×3 (05:54→21:14)
[2022-12-25] MEDS: Morphine Sulfate 4 MG/ML CARTRIDGE 2 MG IVPUSH ×4 (05:55→21:11)
[2022-12-25] MEDS: Dextrose 5 % and 0.9 % NaCl 1,000 ML 100 ML IVCONT ×2 (05:58→17:56)
[2022-12-25 06:17] LABS: Appearance Urine Clear; Color Urine Dark Yellow; Glucose Urine UA 100 mg/dL (Negative); Leukocyte Esterase Urine Small (1+) (Negative); Nitrite Urine Negative (Negative); PH 5.5 (5.0-9.0); Specific Gravity - Urine 1.025 (1.005-1.025); UMIC TRIGGER UACC YES; Urine Blood Moderate (2+) (Negative); Urine Ketones Negative (Negative); Urine Protein 30 (1+) mg/dL (Neg-Trace)
--- NOTE | 2022-12-25 06:24 | PC.NURSE ---
Pt has been having low grade temps. most recent one 99.8. prn tylenol given and MD Mead notified and ordered labs.
[2022-12-25] MEDS: 0.9 % Sodium Chloride Flush 3 ML SYRINGE IVFLUSH (07:34)
[2022-12-25 07:39] VITALS: BP 108/55; PULSE 91; RESP 18; TEMP 36.8; O2SAT 94
[2022-12-25 07:54] LABS: Lactic Acid 0.9 mmol/L (0.5-2.0)
[2022-12-25 07:55] LABS: Hematocrit 38.8 % (37.0-47.0); Hemoglobin 12.4 g/dl (12.0-16.0); Mean Corpuscular Hemoglobin 31.4 pg (27.0-33.0); Mean Corpuscular Volume 98.2 fL (80.0-98.0); Mean Platelet Volume 10.4 fL (9.4-12.3); Platelet Count 320 X10*3/uL (160-400); Red Blood Count 3.95 X10*6/uL (4.20-5.50); Red Cell Distribution Width 13.4 % (11.0-16.0); White Blood Count 17.2 X10*3/uL (4.8-10.8)
[2022-12-25 08:03] LABS: Anion Gap 16 (12-20); Blood Urea Nitrogen 9 mg/dL (9-16); Calcium 8.5 mg/dL (8.4-10.2); Carbon Dioxide 23 mmol/L (22-29); Chloride 103 mmol/L (96-108); Creatinine Clr Calc Pharmacy 98.9; Estimated Glomerular Filt Rate > 60; Glucose Random 164 mg/dL (60-115); Potassium 3.9 mmol/L (3.3-5.1); Sodium 138 mmol/L (135-145)
[2022-12-25] MEDS: Nicotine 14 MG PATCH.TD24 TRANSDERMA (08:09)
[2022-12-25] MEDS: Atorvastatin Calcium 80 MG TABLET PO (08:11)
[2022-12-25] MEDS: Clopidogrel Bisulfate 75 MG TABLET PO (08:11)
[2022-12-25] MEDS: lisinopriL 10 MG TABLET PO (08:11)
[2022-12-25] MEDS: Aspirin Enteric Coated 81 MG TABLET.DR PO (08:11)
[2022-12-25] MEDS: Docusate Sodium 100 MG CAPSULE PO ×2 (08:11→19:49)
[2022-12-25] MEDS: Isosorbide Mononitrate 30 MG TAB.ER.24H PO (08:11)
[2022-12-25 08:26] LABS: Bacteria Urine None Seen (None Seen); Hyaline Casts Urine 0-2 /LPF (0-2); UACC Culture Trigger YES; WBC Urine 0-5 /HPF (0-5)
[2022-12-25] MEDS: amLODIPine Besylate 5 MG TABLET PO (08:42)
--- NOTE | 2022-12-25 12:14 | HO.PM.IMPN ---
Subjective Subjective Date of Service: 12/25/22 Interval History: still complaining of pain but overall better no nausea or vomiting no other overnight events Review of Systems No fever, chills or weakness No chest pain, palpitation No shortness of breath or coughing abdominal pain, with nausea No urinary symptoms No any rash or wounds Physical Exam Vital Signs: Vital Signs: Last Vital Signs Temp 98.2 F 12/25/22 07:39 Pulse 91 12/25/22 07:39 Resp 18 12/25/22 07:39 BP 108/55 L 12/25/22 07:39 Pulse Ox 94 12/25/22 07:39 O2 Del Method Nasal Cannula 12/25/22 07:39 O2 Flow Rate 2 12/25/22 07:39 BMI result Body Mass Index 34.4 Const: Other: Constitutional : Awake, interactive, not in distress Neck : Normal inspection, Supple Cardiovascular : RRR, no JVP, no lower extremity edema Respiratory : good bilateral air entry, no crackles, wheezes or rhonchi Gastrointestinal: soft, lax, Normal bowel sounds, generalized tenderness more in LLQ with no surgical signs Skin : Warm, Dry Neurological : Alert & oriented x3, No focal deficit Objective Data Active Medications Acetaminophen (Acetaminophen 325 Mg Tablet) 650 mg PO Q6H PRN PRN Reason: Pain, Mild (Pain Scale 1-3) Last Admin: 12/25/22 05:54 Dose: 650 mg Documented By: KAL Albuterol Sulfate (Albuterol Sulfate 90 Mcg 8 Gm Inhaler) 2 puff INHALE Q4H PRN PRN Reason: Wheezing Amlodipine Besylate (Amlodipine Besylate 5 Mg Tablet) 5 mg PO DAILY [facility]; Protocol Last Admin: 12/25/22 08:42 Dose: 5 mg Documented By: MINGO Aspirin (Aspirin Enteric Coated 81 Mg Tablet.) 81 mg PO DAILY [facility] Last Admin: 12/25/22 08:11 Dose: 81 mg Documented By: MINGO Atorvastatin Calcium (Atorvastatin Calcium 80 Mg Tablet) 80 mg PO DAILY [facility] Last Admin: 12/25/22 08:11 Dose: 80 mg Documented By: MINGO Clopidogrel Bisulfate (Clopidogrel Bisulfate 75 Mg Tablet) 75 mg PO DAILY [facility] Last Admin: 12/25/22 08:11 Dose: 75 mg Documented By: MINGO Docusate Sodium (Docusate Sodium 100 Mg Capsule) 100 mg PO BID [facility] Last Admin: 12/25/22 08:11 Dose: 100 mg Documented By: MINGO Enoxaparin Sodium (Enoxaparin Sodium 40 Mg/0.4 Ml Syringe) 40 mg SUBCUT Q24H [facility] Last Admin: 12/24/22 15:33 Dose: 40 mg Documented By: MICHELE Dextrose/Sodium Chloride (D5ns) 1,000 mls @ 100 mls/hr IVCONT .Q10H [facility] Last Admin: 12/25/22 05:58 Dose: 100 mls/hr Documented By: KAL Metronidazole (Flagyl) 500 mg in 100 mls @ 100 mls/hr IV Q8H [facility] Last Infusion: 12/25/22 07:30 Dose: 0 mls/hr Documented By: MINGO Levofloxacin (Levaquin) 750 mg in 150 mls @ 100 mls/hr IV Q24H [facility] Isosorbide Mononitrate (Isosorbide Mononitrate 30 Mg Tab.Er.24h) 30 mg PO DAILY [facility]; Protocol Last Admin: 12/25/22 08:11 Dose: 30 mg Documented By: MINGO Lisinopril (Lisinopril 10 Mg Tablet) 10 mg PO DAILY [facility]; Protocol Last Admin: 12/25/22 08:11 Dose: 10 mg Documented By: MINGO Morphine Sulfate (Morphine Sulfate 4 Mg/Ml Cartridge) 2 mg IVPUSH Q4H PRN; Protocol PRN Reason: Pain, Severe (Pain Scale 7-10) Last Admin: 12/25/22 10:41 Dose: 2 mg Documented By: MINGO Nicotine (Nicotine 14 Mg Patch.Td24) 14 mg TRANSDERMA DAILY [facility] Last Admin: 12/25/22 08:09 Dose: 14 mg Documented By: MINGO Ondansetron HCl (Ondansetron Hcl 4 Mg/2 Ml Vial) 4 mg IVPUSH Q8H PRN PRN Reason: Nausea and Vomiting Pharmacy Consult (Consult Rx Perform Med Rec) 1 each MISCELLANE ONCE PRN PRN Reason: Consult order Senna (Senna [place] Extract Oral Syrup 15 Ml Syrup) 15 ml PO BEDTIME [facility] Last Admin: 12/24/22 22:57 Dose: 15 ml Documented By: KAL Sodium Chloride (0.9 % Sodium Chloride Flush 3 Ml Syringe) 3 ml IVFLUSH QSHIFT [facility] Last Admin: 12/25/22 07:34 Dose: 3 ml Documented By: MINGO Labs 12/25/22 05:48 12/25/22 05:48 Labs: Laboratory Results - last 24 hr 12/25/22 12/25/22 12/25/22 05:48 05:48 06:05 MCV 98.2 H MCH 31.4 MCHC 32.0 RDW 13.4 Plt Count 320 MPV 10.4 Absolute Nucleated RBC 0.000 Nucleated RBC % (auto) 0.0 Anion Gap 16 Estim Creat Clear Calc 98.9 Estimated GFR > 60 Random Glucose 164 H Lactic Acid Calcium 8.5 D Urine Color Dark Yellow Urine Appearance Clear Urine pH 5.5 Ur Specific [place] 1.025 Urine Protein 30 (1+) H Urine Glucose (UA) 100 H Urine Ketones Negative Urine Blood Moderate (2+) H Urine Nitrite Negative Ur Leukocyte Esterase Small (1+) H Urine RBC 11-20 H Urine WBC 0-5 Ur Squamous Epith Cells 3-5 Urine Bacteria None Seen Hyaline Casts 0-2 12/25/22 07:12 MCV MCH MCHC RDW Plt Count MPV Absolute Nucleated RBC Nucleated RBC % (auto) Anion Gap Estim Creat Clear Calc Estimated GFR Random Glucose Lactic Acid 0.9 Calcium Urine Color Urine Appearance Urine pH Ur Specific [place] Urine Protein Urine Glucose (UA) Urine Ketones Urine Blood Urine Nitrite Ur Leukocyte Esterase Urine RBC Urine WBC Ur Squamous Epith Cells Urine Bacteria Hyaline Casts Assessment and Plan (1) Sepsis: Status: Acute (2) Diverticulitis: Status: Acute Plan A 62 years old lady with PMH of CAD, CMP, smoker who presents to the hospital complaining of 5 days of abdominal pain. Sepsis 2/2 acute diverticulitis pending cultures Continue Levaquin and Flagyl start clears IVF advance diet as tolerated Constipation Colace and Sinna Hx CAD ASA, Plavix Lisinipril, Isosorbide and amlodipine Statin smoker advised to quit NRT DVT PPx Lovenox The paitnet will need overnight hospital stay to treat Diverticulitis pending final blood cultures Time Spent With Patient Time: Total time managing care of this patient today ____ minutes. Quality Stroke Does the patient have a stroke diagnosis?: No VTE Prior VTE?: No VTE Risk Level:: Medical - moderate - high VTE Device Contraindication: Treatment Not Indicated VTE Drug Contraindication: N/A - Med Ordered
[2022-12-25] MEDS: levoFLOXacin/D5W 750 MG/150 ML PIGGYBACK 100 MG IV (14:52)
[2022-12-25 16:00] VITALS: BP 107/62; PULSE 107; RESP 22; TEMP 37.7; O2SAT 92
[2022-12-25] MEDS: Enoxaparin Sodium 40 MG/0.4 ML SYRINGE SUBCUT (17:06)
[2022-12-25 19:51] VITALS: BP 120/63; PULSE 98; RESP 22; TEMP 36.8; O2SAT 93
[2022-12-25 23:42] VITALS: BP 129/74; PULSE 100; RESP 20; TEMP 37.5; O2SAT 93
[2022-12-26] MEDS: Morphine Sulfate 4 MG/ML CARTRIDGE 2 MG IVPUSH ×2 (02:37→09:09)
[2022-12-26] MEDS: metroNIDAZOLE/NS 500 MG/100 ML PIGGYBACK 100 MG IV ×3 (05:14→21:48)
[2022-12-26] MEDS: Dextrose 5 % and 0.9 % NaCl 1,000 ML 100 ML IVCONT ×2 (05:14→21:53)
[2022-12-26 06:46] LABS: Hematocrit 35.5 % (37.0-47.0); Hemoglobin 11.2 g/dl (12.0-16.0); Mean Corpuscular HGB Conc 31.5 g/dl (31.0-35.0); Mean Corpuscular Hemoglobin 30.7 pg (27.0-33.0); Mean Corpuscular Volume 97.3 fL (80.0-98.0); Mean Platelet Volume 10.2 fL (9.4-12.3); Platelet Count 315 X10*3/uL (160-400); Red Blood Count 3.65 X10*6/uL (4.20-5.50); Red Cell Distribution Width 13.4 % (11.0-16.0); White Blood Count 16.5 X10*3/uL (4.8-10.8)
[2022-12-26 07:10] LABS: Anion Gap 13 (12-20); Blood Urea Nitrogen 9 mg/dL (9-16); Calcium 8.4 mg/dL (8.4-10.2); Carbon Dioxide 24 mmol/L (22-29); Chloride 105 mmol/L (96-108); Creatinine Clr Calc Pharmacy 100.3; Estimated Glomerular Filt Rate > 60; Glucose Random 155 mg/dL (60-115); Potassium 4.4 mmol/L (3.3-5.1); Sodium 138 mmol/L (135-145)
[2022-12-26 07:53] VITALS: BP 135/67; PULSE 99; RESP 18; TEMP 36; O2SAT 93
[2022-12-26 08:13] VITALS: BP 137/75; PULSE 96; RESP 16; TEMP 37.2; O2SAT 94
[2022-12-26] MEDS: Aspirin Enteric Coated 81 MG TABLET.DR PO (09:09)
[2022-12-26] MEDS: Clopidogrel Bisulfate 75 MG TABLET PO (09:09)
[2022-12-26] MEDS: Atorvastatin Calcium 80 MG TABLET PO (09:09)
[2022-12-26] MEDS: Docusate Sodium 100 MG CAPSULE PO ×2 (09:09→20:16)
[2022-12-26] MEDS: lisinopriL 10 MG TABLET PO (09:10)
[2022-12-26] MEDS: Isosorbide Mononitrate 30 MG TAB.ER.24H PO (09:10)
[2022-12-26] MEDS: 0.9 % Sodium Chloride Flush 3 ML SYRINGE IVFLUSH (09:13)
[2022-12-26] MEDS: Nicotine 14 MG PATCH.TD24 TRANSDERMA (10:13)
--- NOTE | 2022-12-26 10:42 | HO.PM.IMPN ---
Subjective Subjective Date of Service: 12/26/22 Interval History: still complaining of pain but overall better no appetite, unable to eat from pain abd pain not well controlled with morphine no other overnight events Review of Systems No fever, chills or weakness No chest pain, palpitation No shortness of breath or coughing abdominal pain, with nausea No urinary symptoms No any rash or wounds Physical Exam Vital Signs: Vital Signs: Last Vital Signs Temp 99.0 F 12/26/22 08:13 Pulse 96 12/26/22 08:13 Resp 16 12/26/22 08:13 BP 137/75 12/26/22 08:13 Pulse Ox 94 12/26/22 08:13 O2 Del Method Nasal Cannula 12/26/22 08:13 O2 Flow Rate 2 12/26/22 08:13 BMI result Body Mass Index 34.4 Const: Other: Constitutional : Awake, interactive, not in distress Neck : Normal inspection, Supple Cardiovascular : RRR, no JVP, no lower extremity edema Respiratory : good bilateral air entry, no crackles, wheezes or rhonchi Gastrointestinal: soft, lax, Normal bowel sounds, generalized tenderness more in LLQ with no surgical signs Skin : Warm, Dry Neurological : Alert & oriented x3, No focal deficit Objective Data Active Medications Acetaminophen (Acetaminophen 325 Mg Tablet) 650 mg PO Q6H PRN PRN Reason: Pain, Mild (Pain Scale 1-3) Last Admin: 12/25/22 05:54 Dose: 650 mg Documented By: KAL Albuterol Sulfate (Albuterol Sulfate 90 Mcg 8 Gm Inhaler) 2 puff INHALE Q4H PRN PRN Reason: Wheezing Amlodipine Besylate (Amlodipine Besylate 5 Mg Tablet) 5 mg PO DAILY [facility]; Protocol Last Admin: 12/25/22 08:42 Dose: 5 mg Documented By: MINGO Aspirin (Aspirin Enteric Coated 81 Mg Tablet.) 81 mg PO DAILY [facility] Last Admin: 12/26/22 09:09 Dose: 81 mg Documented By: JAJA Atorvastatin Calcium (Atorvastatin Calcium 80 Mg Tablet) 80 mg PO DAILY [facility] Last Admin: 12/26/22 09:09 Dose: 80 mg Documented By: JAJA Clopidogrel Bisulfate (Clopidogrel Bisulfate 75 Mg Tablet) 75 mg PO DAILY [facility] Last Admin: 12/26/22 09:09 Dose: 75 mg Documented By: JAJA Docusate Sodium (Docusate Sodium 100 Mg Capsule) 100 mg PO BID [facility] Last Admin: 12/26/22 09:09 Dose: 100 mg Documented By: JAJA Enoxaparin Sodium (Enoxaparin Sodium 40 Mg/0.4 Ml Syringe) 40 mg SUBCUT Q24H [facility] Last Admin: 12/25/22 17:06 Dose: 40 mg Documented By: MINGO Dextrose/Sodium Chloride (D5ns) 1,000 mls @ 100 mls/hr IVCONT .Q10H [facility] Last Admin: 12/26/22 05:14 Dose: 100 mls/hr Documented By: ZULEIMA Metronidazole (Flagyl) 500 mg in 100 mls @ 100 mls/hr IV Q8H [facility] Last Infusion: 12/26/22 06:14 Dose: 0 mls/hr Documented By: ISABELA Levofloxacin (Levaquin) 750 mg in 150 mls @ 100 mls/hr IV Q24H [facility] Last Infusion: 12/25/22 17:54 Dose: 0 mls/hr Documented By: MINGO Isosorbide Mononitrate (Isosorbide Mononitrate 30 Mg Tab.Er.24h) 30 mg PO DAILY [facility]; Protocol Last Admin: 12/26/22 09:10 Dose: 30 mg Documented By: JAJA Lisinopril (Lisinopril 10 Mg Tablet) 10 mg PO DAILY [facility]; Protocol Last Admin: 12/26/22 09:10 Dose: 10 mg Documented By: JAJA Morphine Sulfate (Morphine Sulfate 4 Mg/Ml Cartridge) 4 mg IVPUSH Q4H PRN; Protocol PRN Reason: Pain, Severe (Pain Scale 7-10) Nicotine (Nicotine 14 Mg Patch.Td24) 14 mg TRANSDERMA DAILY [facility] Last Admin: 12/26/22 10:13 Dose: 14 mg Documented By: JAJA Ondansetron HCl (Ondansetron Hcl 4 Mg/2 Ml Vial) 4 mg IVPUSH Q8H PRN PRN Reason: Nausea and Vomiting Oxycodone HCl (Oxycodone Hcl Immed Release 5 Mg Tablet) 5 mg PO Q6H PRN PRN Reason: Pain, Moderate (Pain Scale 4-6 Pharmacy Consult (Consult Rx Perform Med Rec) 1 each MISCELLANE ONCE PRN PRN Reason: Consult order Senna (Senna [place] Extract Oral Syrup 15 Ml Syrup) 15 ml PO BEDTIME [facility] Last Admin: 12/25/22 19:49 Dose: 15 ml Documented By: ZULEIMA Sodium Chloride (0.9 % Sodium Chloride Flush 3 Ml Syringe) 3 ml IVFLUSH QSHIFT [facility] Last Admin: 12/26/22 09:13 Dose: 3 ml Documented By: JAJA Labs 12/26/22 05:54 12/26/22 05:54 Labs: Laboratory Results - last 24 hr 12/26/22 12/26/22 05:54 05:54 MCV 97.3 MCH 30.7 MCHC 31.5 RDW 13.4 Plt Count 315 MPV 10.2 Absolute Nucleated RBC 0.000 Nucleated RBC % (auto) 0.0 Anion Gap 13 Estim Creat Clear Calc 100.3 Estimated GFR > 60 Random Glucose 155 H Calcium 8.4 Microbiology Microbiology Results: Microbiology 12/25/22 06:46 Blood Culture - Preliminary Blood - Venous No growth after 24 hours. 12/25/22 07:12 Blood Culture - Preliminary Blood - Venous No growth after 24 hours. 12/24/22 11:37 Blood Culture - Preliminary Blood - Venous No growth after 24 hours. 12/24/22 11:37 Blood Culture - Preliminary Blood - Venous No growth after 24 hours. Assessment and Plan (1) Sepsis: Status: Acute (2) Diverticulitis: Status: Acute Plan A 62 years old lady with PMH of CAD, CMP, smoker who presents to the hospital complaining of 5 days of abdominal pain. Sepsis 2/2 acute diverticulitis pending cultures Continue Levaquin and Flagyl on clears IVF increase Morphine PO Oxycodone prn advance diet as tolerated Constipation Colace and Sinna Hx CAD ASA, Plavix Lisinipril, Isosorbide and amlodipine Statin smoker advised to quit NRT DVT PPx Lovenox The paitnet will need overnight hospital stay to treat Diverticulitis pending final blood cultures and PO tolerance Time Spent With Patient Time: Total time managing care of this patient today ____ minutes. Quality Stroke Does the patient have a stroke diagnosis?: No VTE Prior VTE?: No VTE Risk Level:: Medical - moderate - high VTE Device Contraindication: Treatment Not Indicated VTE Drug Contraindication: N/A - Med Ordered
[2022-12-26] MEDS: oxyCODONE HCl Immed Release 5 MG TABLET PO ×2 (11:04→20:39)
[2022-12-26] MEDS: Morphine Sulfate 4 MG/ML CARTRIDGE IVPUSH ×2 (12:45→16:26)
[2022-12-26] MEDS: levoFLOXacin/D5W 750 MG/150 ML PIGGYBACK 100 MG IV (14:31)
[2022-12-26] MEDS: Enoxaparin Sodium 40 MG/0.4 ML SYRINGE SUBCUT (14:31)
--- NOTE | 2022-12-26 14:59 | MHC.CM.PN ---
Per MD rounds no discharge today. DC is anticipated tomorrow. DP home no services. Patient will arrange transportation.
[2022-12-26 15:41] VITALS: BP 116/68; PULSE 92; RESP 16; TEMP 36.4; O2SAT 94
[2022-12-26 23:46] VITALS: BP 108/61; PULSE 81; RESP 16; TEMP 36.6; O2SAT 94
[2022-12-27] VITALS: BP 124/74; PULSE 89; RESP 18; TEMP 36.8; O2SAT 95
[2022-12-27] MEDS: Morphine Sulfate 4 MG/ML CARTRIDGE IVPUSH ×4 (01:21→21:32)
[2022-12-27] MEDS: ondansetron HCL 4 MG/2 ML VIAL IVPUSH ×3 (01:21→17:47)
[2022-12-27] MEDS: metroNIDAZOLE/NS 500 MG/100 ML PIGGYBACK 100 MG IV ×3 (05:26→21:32)
[2022-12-27] MEDS: oxyCODONE HCl Immed Release 5 MG TABLET PO ×2 (06:19→14:48)
[2022-12-27 07:49] VITALS: BP 113/87; PULSE 87; RESP 16; TEMP 36.5; O2SAT 96
[2022-12-27] MEDS: Clopidogrel Bisulfate 75 MG TABLET PO (07:50)
[2022-12-27] MEDS: Atorvastatin Calcium 80 MG TABLET PO (07:50)
[2022-12-27] MEDS: lisinopriL 10 MG TABLET PO (07:50)
[2022-12-27] MEDS: Docusate Sodium 100 MG CAPSULE PO ×2 (07:50→21:31)
[2022-12-27] MEDS: Aspirin Enteric Coated 81 MG TABLET.DR PO (07:50)
[2022-12-27] MEDS: Isosorbide Mononitrate 30 MG TAB.ER.24H PO (07:50)
[2022-12-27] MEDS: Dextrose 5 % and 0.9 % NaCl 1,000 ML 100 ML IVCONT (07:50)
[2022-12-27] MEDS: Nicotine 14 MG PATCH.TD24 TRANSDERMA (07:51)
[2022-12-27] MEDS: Lactulose 20 GM/30 ML SOLUTION PO ×2 (08:59→21:31)
--- NOTE | 2022-12-27 10:55 | HO.PM.IMPN ---
Subjective Subjective Date of Service: 12/27/22 Interval History: still complaining of pain but overall better no appetite or bowel movement unable to tolerate much of PO from pain abd pain better controlled with morphine and Oxy no other overnight events Review of Systems No fever, chills or weakness No chest pain, palpitation No shortness of breath or coughing abdominal pain, with nausea No urinary symptoms No any rash or wounds Physical Exam Vital Signs: Vital Signs: Last Vital Signs Temp 97.7 F 12/27/22 07:49 Pulse 87 12/27/22 07:49 Resp 16 12/27/22 07:49 BP 113/87 12/27/22 07:49 Pulse Ox 96 12/27/22 07:49 O2 Del Method Nasal Cannula 12/27/22 07:49 O2 Flow Rate 2 12/27/22 07:49 BMI result Body Mass Index 34.4 Const: Other: Constitutional : Awake, interactive, not in distress Neck : Normal inspection, Supple Cardiovascular : RRR, no JVP, no lower extremity edema Respiratory : good bilateral air entry, no crackles, wheezes or rhonchi Gastrointestinal: soft, lax, Normal bowel sounds, generalized tenderness more in LLQ with no surgical signs Skin : Warm, Dry Neurological : Alert & oriented x3, No focal deficit Objective Data Active Medications Acetaminophen (Acetaminophen 325 Mg Tablet) 650 mg PO Q6H PRN PRN Reason: Pain, Mild (Pain Scale 1-3) Last Admin: 12/25/22 05:54 Dose: 650 mg Documented By: KAL Albuterol Sulfate (Albuterol Sulfate 90 Mcg 8 Gm Inhaler) 2 puff INHALE Q4H PRN PRN Reason: Wheezing Amlodipine Besylate (Amlodipine Besylate 5 Mg Tablet) 5 mg PO DAILY [facility]; Protocol Last Admin: 12/25/22 08:42 Dose: 5 mg Documented By: MINGO Aspirin (Aspirin Enteric Coated 81 Mg Tablet.) 81 mg PO DAILY [facility] Last Admin: 12/27/22 07:50 Dose: 81 mg Documented By: KATY Atorvastatin Calcium (Atorvastatin Calcium 80 Mg Tablet) 80 mg PO DAILY [facility] Last Admin: 12/27/22 07:50 Dose: 80 mg Documented By: KATY Clopidogrel Bisulfate (Clopidogrel Bisulfate 75 Mg Tablet) 75 mg PO DAILY [facility] Last Admin: 12/27/22 07:50 Dose: 75 mg Documented By: KATY Docusate Sodium (Docusate Sodium 100 Mg Capsule) 100 mg PO BID [facility] Last Admin: 12/27/22 07:50 Dose: 100 mg Documented By: KATY Enoxaparin Sodium (Enoxaparin Sodium 40 Mg/0.4 Ml Syringe) 40 mg SUBCUT Q24H [facility] Last Admin: 12/26/22 14:31 Dose: 40 mg Documented By: JAJA Dextrose/Sodium Chloride (D5ns) 1,000 mls @ 100 mls/hr IVCONT .Q10H [facility] Last Admin: 12/27/22 07:50 Dose: 100 mls/hr Documented By: KATY Metronidazole (Flagyl) 500 mg in 100 mls @ 100 mls/hr IV Q8H [facility] Last Infusion: 12/27/22 06:33 Dose: 0 mls/hr Documented By: ИРИНА Levofloxacin (Levaquin) 750 mg in 150 mls @ 100 mls/hr IV Q24H [facility] Last Infusion: 12/26/22 16:43 Dose: 0 mls/hr Documented By: JAJA Isosorbide Mononitrate (Isosorbide Mononitrate 30 Mg Tab.Er.24h) 30 mg PO DAILY [facility]; Protocol Last Admin: 12/27/22 07:50 Dose: 30 mg Documented By: KATY Lactulose (Lactulose 20 Gm/30 Ml Solution) 20 gm PO BID [facility] Last Admin: 12/27/22 08:59 Dose: 20 gm Documented By: KATY Lisinopril (Lisinopril 10 Mg Tablet) 10 mg PO DAILY [facility]; Protocol Last Admin: 12/27/22 07:50 Dose: 10 mg Documented By: KATY Morphine Sulfate (Morphine Sulfate 4 Mg/Ml Cartridge) 4 mg IVPUSH Q4H PRN; Protocol PRN Reason: Pain, Severe (Pain Scale 7-10) Last Admin: 12/27/22 07:50 Dose: 4 mg Documented By: KATY Nicotine (Nicotine 14 Mg Patch.Td24) 14 mg TRANSDERMA DAILY [facility] Last Admin: 12/27/22 07:51 Dose: 14 mg Documented By: KATY Ondansetron HCl (Ondansetron Hcl 4 Mg/2 Ml Vial) 4 mg IVPUSH Q8H PRN PRN Reason: Nausea and Vomiting Last Admin: 12/27/22 01:21 Dose: 4 mg Documented By: ИРИНА Oxycodone HCl (Oxycodone Hcl Immed Release 5 Mg Tablet) 5 mg PO Q6H PRN PRN Reason: Pain, Moderate (Pain Scale 4-6 Last Admin: 12/27/22 06:19 Dose: 5 mg Documented By: ИРИНА Pharmacy Consult (Consult Rx Perform Med Rec) 1 each MISCELLANE ONCE PRN PRN Reason: Consult order Senna (Senna [place] Extract Oral Syrup 15 Ml Syrup) 15 ml PO BEDTIME [facility] Last Admin: 12/26/22 20:16 Dose: 15 ml Documented By: ИРИНА Sodium Chloride (0.9 % Sodium Chloride Flush 3 Ml Syringe) 3 ml IVFLUSH QSHIFT [facility] Last Admin: 12/27/22 07:47 Dose: Not Given Documented By: KATY Non-Admin Reason: IV Running Labs 12/26/22 05:54 12/26/22 05:54 Microbiology Microbiology Results: Microbiology 12/25/22 07:12 Blood Culture - Preliminary Blood - Venous No growth after 48 hours. 12/25/22 06:46 Blood Culture - Preliminary Blood - Venous No growth after 48 hours. 12/24/22 11:37 Blood Culture - Preliminary Blood - Venous No growth after 48 hours. 12/24/22 11:37 Blood Culture - Preliminary Blood - Venous No growth after 48 hours. 12/25/22 06:05 Urine Culture - Final Urine clean catch - Urine booker top Assessment and Plan (1) Sepsis: Status: Acute (2) Diverticulitis: Status: Acute Plan A 62 years old lady with PMH of CAD, CMP, smoker who presents to the hospital complaining of 5 days of abdominal pain. Sepsis 2/2 acute diverticulitis negative cultures Continue Levaquin and Flagyl continue IVF PRN Morphine PO Oxycodone prn advance diet to bland Constipation Colace and Sinna Hx CAD ASA, Plavix Lisinipril, Isosorbide and amlodipine Statin smoker advised to quit NRT DVT PPx Lovenox The paitnet will need overnight hospital stay to treat Diverticulitis pending clinical improvement and PO tolerance Time Spent With Patient Time: Total time managing care of this patient today ____ minutes. Quality Stroke Does the patient have a stroke diagnosis?: No VTE Prior VTE?: No VTE Risk Level:: Medical - moderate - high VTE Device Contraindication: Treatment Not Indicated VTE Drug Contraindication: N/A - Med Ordered
[2022-12-27] MEDS: Enoxaparin Sodium 40 MG/0.4 ML SYRINGE SUBCUT (14:48)
[2022-12-27] MEDS: levoFLOXacin/D5W 750 MG/150 ML PIGGYBACK 100 MG IV (14:49)
[2022-12-27 15:16] VITALS: BP 135/75; PULSE 91; RESP 18; TEMP 36.2; O2SAT 95
[2022-12-27] MEDS: 0.9 % Sodium Chloride Flush 3 ML SYRINGE IVFLUSH (21:31)
[2022-12-27 23:53] VITALS: BP 113/62; PULSE 89; RESP 18; TEMP 36.2; O2SAT 96
[2022-12-28] MEDS: Dextrose 5 % and 0.9 % NaCl 1,000 ML 100 ML IVCONT (00:20)
[2022-12-28] MEDS: oxyCODONE HCl Immed Release 5 MG TABLET PO (00:25)
[2022-12-28] MEDS: Acetaminophen 325 MG TABLET 650 MG PO (00:25)
[2022-12-28 03:50] VITALS: BP 142/86; PULSE 98; RESP 16; TEMP 37.1; O2SAT 90
[2022-12-28 05:28] LABS: Hematocrit 36.2 % (37.0-47.0); Hemoglobin 11.4 g/dl (12.0-16.0); Mean Corpuscular HGB Conc 31.5 g/dl (31.0-35.0); Mean Corpuscular Hemoglobin 30.6 pg (27.0-33.0); Mean Corpuscular Volume 97.1 fL (80.0-98.0); Mean Platelet Volume 9.7 fL (9.4-12.3); Platelet Count 413 X10*3/uL (160-400); Red Blood Count 3.73 X10*6/uL (4.20-5.50); Red Cell Distribution Width 13.8 % (11.0-16.0); White Blood Count 11.6 X10*3/uL (4.8-10.8)
[2022-12-28] MEDS: metroNIDAZOLE/NS 500 MG/100 ML PIGGYBACK 100 MG IV ×3 (05:37→21:15)
[2022-12-28] MEDS: Morphine Sulfate 4 MG/ML CARTRIDGE IVPUSH (05:39)
[2022-12-28 06:13] LABS: Anion Gap 13 (12-20); Blood Urea Nitrogen 8 mg/dL (9-16); Calcium 8.7 mg/dL (8.4-10.2); Carbon Dioxide 29 mmol/L (22-29); Chloride 103 mmol/L (96-108); Creatinine Clr Calc Pharmacy 94.9; Estimated Glomerular Filt Rate > 60; Glucose Random 188 mg/dL (60-115); Potassium 3.9 mmol/L (3.3-5.1); Sodium 141 mmol/L (135-145)
[2022-12-28 06:21] VITALS: RESP 18
[2022-12-28 08:00] VITALS: BP 153/82; PULSE 91; RESP 18; TEMP 36.5; O2SAT 92
[2022-12-28] MEDS: Lactulose 20 GM/30 ML SOLUTION PO (08:58)
[2022-12-28] MEDS: Isosorbide Mononitrate 30 MG TAB.ER.24H PO (08:58)
[2022-12-28] MEDS: Aspirin Enteric Coated 81 MG TABLET.DR PO (08:58)
[2022-12-28] MEDS: Atorvastatin Calcium 80 MG TABLET PO (08:59)
[2022-12-28] MEDS: ondansetron HCL 4 MG/2 ML VIAL IVPUSH (08:59)
[2022-12-28] MEDS: lisinopriL 10 MG TABLET PO (08:59)
[2022-12-28] MEDS: Docusate Sodium 100 MG CAPSULE PO (08:59)
[2022-12-28] MEDS: Nicotine 14 MG PATCH.TD24 TRANSDERMA (08:59)
[2022-12-28] MEDS: Clopidogrel Bisulfate 75 MG TABLET PO (08:59)
--- NOTE | 2022-12-28 11:44 | HO.PM.IMPN ---
Subjective Subjective Date of Service: 12/28/22 Interval History: Feels mild improvement in abd pain little better appetite had small bowel movement abd pain better controlled with morphine and Oxy no other overnight events Review of Systems No fever, chills or weakness No chest pain, palpitation No shortness of breath or coughing abdominal pain, with nausea No urinary symptoms No any rash or wounds Physical Exam Vital Signs: Vital Signs: Last Vital Signs Temp 97.7 F 12/28/22 08:00 Pulse 91 12/28/22 08:00 Resp 18 12/28/22 08:00 BP 153/82 H 12/28/22 08:00 Pulse Ox 92 12/28/22 08:00 O2 Del Method Room Air 12/28/22 08:00 O2 Flow Rate 2 12/27/22 23:53 BMI result Body Mass Index 34.4 Const: Other: Constitutional : Awake, interactive, not in distress Neck : Normal inspection, Supple Cardiovascular : RRR, no JVP, no lower extremity edema Respiratory : good bilateral air entry, no crackles, wheezes or rhonchi Gastrointestinal: soft, lax, Normal bowel sounds, less generalized tenderness in LLQ with no surgical signs Skin : Warm, Dry Neurological : Alert & oriented x3, No focal deficit Objective Data Active Medications Acetaminophen (Acetaminophen 325 Mg Tablet) 650 mg PO Q6H PRN PRN Reason: Pain, Mild (Pain Scale 1-3) Last Admin: 12/28/22 00:25 Dose: 650 mg Documented By: EMILY Albuterol Sulfate (Albuterol Sulfate 90 Mcg 8 Gm Inhaler) 2 puff INHALE Q4H PRN PRN Reason: Wheezing Amlodipine Besylate (Amlodipine Besylate 5 Mg Tablet) 5 mg PO DAILY [facility]; Protocol Last Admin: 12/25/22 08:42 Dose: 5 mg Documented By: MINGO Aspirin (Aspirin Enteric Coated 81 Mg Tablet.) 81 mg PO DAILY [facility] Last Admin: 12/28/22 08:58 Dose: 81 mg Documented By: KATY Atorvastatin Calcium (Atorvastatin Calcium 80 Mg Tablet) 80 mg PO DAILY [facility] Last Admin: 12/28/22 08:59 Dose: 80 mg Documented By: KATY Clopidogrel Bisulfate (Clopidogrel Bisulfate 75 Mg Tablet) 75 mg PO DAILY [facility] Last Admin: 12/28/22 08:59 Dose: 75 mg Documented By: KATY Docusate Sodium (Docusate Sodium 100 Mg Capsule) 100 mg PO BID [facility] Last Admin: 12/28/22 08:59 Dose: 100 mg Documented By: KATY Enoxaparin Sodium (Enoxaparin Sodium 40 Mg/0.4 Ml Syringe) 40 mg SUBCUT Q24H [facility] Last Admin: 12/27/22 14:48 Dose: 40 mg Documented By: AKTY Dextrose/Sodium Chloride (D5ns) 1,000 mls @ 100 mls/hr IVCONT .Q10H [facility] Last Admin: 12/28/22 09:23 Dose: Not Given Documented By: KATY Non-Admin Reason: IV Running Metronidazole (Flagyl) 500 mg in 100 mls @ 100 mls/hr IV Q8H [facility] Last Infusion: 12/28/22 06:46 Dose: 0 mls/hr Documented By: OZORALB Levofloxacin (Levaquin) 750 mg in 150 mls @ 100 mls/hr IV Q24H [facility] Last Infusion: 12/27/22 16:34 Dose: 0 mls/hr Documented By: KATY Isosorbide Mononitrate (Isosorbide Mononitrate 30 Mg Tab.Er.24h) 30 mg PO DAILY [facility]; Protocol Last Admin: 12/28/22 08:58 Dose: 30 mg Documented By: KATY Lactulose (Lactulose 20 Gm/30 Ml Solution) 20 gm PO BID [facility] Last Admin: 12/28/22 08:58 Dose: 20 gm Documented By: KATY Lisinopril (Lisinopril 10 Mg Tablet) 10 mg PO DAILY [facility]; Protocol Last Admin: 12/28/22 08:59 Dose: 10 mg Documented By: KATY Morphine Sulfate (Morphine Sulfate 4 Mg/Ml Cartridge) 2 mg IVPUSH Q4H PRN; Protocol PRN Reason: Pain, Severe (Pain Scale 7-10) Nicotine (Nicotine 14 Mg Patch.Td24) 14 mg TRANSDERMA DAILY [facility] Last Admin: 12/28/22 08:59 Dose: 14 mg Documented By: KATY Ondansetron HCl (Ondansetron Hcl 4 Mg/2 Ml Vial) 4 mg IVPUSH Q8H PRN PRN Reason: Nausea and Vomiting Last Admin: 12/28/22 08:59 Dose: 4 mg Documented By: KATY Oxycodone HCl (Oxycodone Hcl Immed Release 5 Mg Tablet) 5 mg PO Q6H PRN PRN Reason: Pain, Moderate (Pain Scale 4-6 Last Admin: 12/28/22 00:25 Dose: 5 mg Documented By: EMILY Pharmacy Consult (Consult Rx Perform Med Rec) 1 each MISCELLANE ONCE PRN PRN Reason: Consult order Senna (Senna [place] Extract Oral Syrup 15 Ml Syrup) 15 ml PO BEDTIME [facility] Last Admin: 12/27/22 21:31 Dose: 15 ml Documented By: EMILY Sodium Chloride (0.9 % Sodium Chloride Flush 3 Ml Syringe) 3 ml IVFLUSH QSHIFT [facility] Last Admin: 12/28/22 06:57 Dose: Not Given Documented By: KATY Non-Admin Reason: IV Running Labs 12/28/22 05:06 12/28/22 05:06 Labs: Laboratory Results - last 24 hr 12/28/22 12/28/22 05:06 05:06 MCV 97.1 MCH 30.6 MCHC 31.5 RDW 13.8 Plt Count 413 H D MPV 9.7 Absolute Nucleated RBC 0.000 Nucleated RBC % (auto) 0.0 Anion Gap 13 Estim Creat Clear Calc 94.9 Estimated GFR > 60 Random Glucose 188 H Calcium 8.7 Microbiology Microbiology Results: Microbiology 12/25/22 07:12 Blood Culture - Preliminary Blood - Venous No growth after 48 hours. 12/25/22 06:46 Blood Culture - Preliminary Blood - Venous No growth after 48 hours. Assessment and Plan (1) Sepsis: Status: Acute (2) Diverticulitis: Status: Acute Plan A 62 years old lady with PMH of CAD, CMP, smoker who presents to the hospital complaining of 5 days of abdominal pain. Sepsis 2/2 acute diverticulitis negative cultures Continue Levaquin and Flagyl DC IVF PRN Morphine PO Oxycodone prn advance diet to bland Constipation Colace and Sinna Lactulose Hx CAD ASA, Plavix Lisinipril, Isosorbide and amlodipine Statin smoker advised to quit NRT DVT PPx Lovenox The paitnet will need overnight hospital stay to treat Diverticulitis pending clinical improvement and PO tolerance Time Spent With Patient Time: Total time managing care of this patient today ____ minutes. Quality Stroke Does the patient have a stroke diagnosis?: No VTE Prior VTE?: No VTE Risk Level:: Medical - moderate - high VTE Device Contraindication: Treatment Not Indicated VTE Drug Contraindication: N/A - Med Ordered
[2022-12-28] MEDS: levoFLOXacin/D5W 750 MG/150 ML PIGGYBACK 100 MG IV (14:15)
[2022-12-28 15:38] VITALS: BP 140/72; PULSE 101; RESP 20; TEMP 37.1; O2SAT 91
[2022-12-28] MEDS: Enoxaparin Sodium 40 MG/0.4 ML SYRINGE SUBCUT (16:03)
[2022-12-28 19:37] VITALS: BP 139/69; PULSE 93; RESP 20; TEMP 36.8; O2SAT 95
[2022-12-28] MEDS: 0.9 % Sodium Chloride Flush 3 ML SYRINGE IVFLUSH (21:18)
[2022-12-28 23:10] VITALS: BP 129/71; PULSE 93; RESP 18; TEMP 37; O2SAT 91
[2022-12-29] MEDS: metroNIDAZOLE/NS 500 MG/100 ML PIGGYBACK 100 MG IV (05:52)
[2022-12-29 07:51] VITALS: BP 164/81; PULSE 87; RESP 19; TEMP 37.3; O2SAT 91
[2022-12-29] MEDS: Atorvastatin Calcium 80 MG TABLET PO (08:31)
[2022-12-29] MEDS: 0.9 % Sodium Chloride Flush 3 ML SYRINGE IVFLUSH (08:31)
[2022-12-29] MEDS: Aspirin Enteric Coated 81 MG TABLET.DR PO (08:31)
[2022-12-29] MEDS: Clopidogrel Bisulfate 75 MG TABLET PO (08:31)
[2022-12-29] MEDS: Nicotine 14 MG PATCH.TD24 TRANSDERMA (08:31)
[2022-12-29] MEDS: lisinopriL 10 MG TABLET PO (08:31)
[2022-12-29] MEDS: Isosorbide Mononitrate 30 MG TAB.ER.24H PO (08:31)
--- NOTE | 2022-12-29 09:56 | PM.DS ---
DS: Providers Provider Date of Service: 12/29/22 Date of admission: 12/24/22 15:15 Primary care physician: Hanna Monaco DO DS: Diagnosis Discharge Diagnosis (1) Sepsis: Status: Acute (2) Diverticulitis: Status: Acute DS: Summary Hospital Course Hospital Course: Admission note HPI A 62 years old lady with PMH of CAD, CMP, smoker who presents to the hospital complaining of 5 days of abdominal pain. The patient reports that she started to feel pain all over her abdomen which has been progressively getting worse associated with nausea, constipation and decrease appetite. denies any fever or chills. no reported chest pain, SOB , dyspnea, urinary symptoms. denies hx of colonoscopy before. In ED a CT scan showed evidence of acute uncomplicated diverticulitis. Admitted for further eval and treatment. Hospital course Admitted for treatment of Sepsis 2/2 acute diverticulitis based on CT scan findings.. treated with IVF and antibiotics with advancing diet slowly over the course of hospital stay. tolerated diet and started to have bowel movement while on laxative therapy. did not require pain meds over the last 24 hours as blood cultures remained negative. Continue Levaquin and Flagyl as prescribed Advance your diet slowly, drink plenty of fluids Follow with PCP to arrange for Colonoscopy as outpatient Time Spent with Patient Time attestation: Total time managing care of this patient today ____ minutes. Discharge coordination time: Greater than 30 minutes Quality: Safe Use of Opioids Does Pt have an Active Cancer Diagnosis on the Problem List?: No Quality: Stroke Does the patient have a stroke diagnosis?: No Physical Exam Vital Signs: Vital Signs: Last Vital Signs Temp 99.1 F 12/29/22 07:51 Pulse 87 12/29/22 07:51 Resp 19 12/29/22 07:51 BP 164/81 H 12/29/22 07:51 Pulse Ox 91 L 12/29/22 07:51 O2 Del Method Room Air 12/29/22 07:51 O2 Flow Rate 2 12/28/22 23:10 BMI result Body Mass Index 34.4 Const: Other: Constitutional : Awake, interactive, not in distress Neck : Normal inspection, Supple Cardiovascular : RRR, no JVP, no lower extremity edema Respiratory : good bilateral air entry, no crackles, wheezes or rhonchi Gastrointestinal: soft, lax, Normal bowel sounds,no abdominal tenderness , no surgical signs Skin : Warm, Dry Neurological : Alert & oriented x3, No focal deficit DS: Data Data Completed and Pending Labs on day of discharge: Preliminary micro results at discharge 12/25/22 07:12 Blood Culture - Preliminary Blood - Venous No growth after 48 hours. 12/25/22 06:46 Blood Culture - Preliminary Blood - Venous No growth after 48 hours. 12/24/22 11:37 Blood Culture - Preliminary Blood - Venous No growth after 48 hours. 12/24/22 11:37 Blood Culture - Preliminary Blood - Venous No growth after [address] scan - abdomen: Radiologist's impression: ITS Impressions Abdomen/Pelvis CT 12/24/22 11:52 IMPRESSION: 1. Acute uncomplicated diverticulitis involving the distal descending colon/sigmoid. 2. Enlarged fatty liver. Fleischner guidelines were followed. Discharge Plan Discharge Anticipated Discharge Date/Time: 12/29/22 09:01 Patient Disposition: Home, Self-Care Discharge Diagnosis: Diverticulitis Referrals: Hanna Monaco DO [Primary Care Provider] - 1 Week Discharge Medications: New levofloxacin 500 mg tablet 500 mg PO Q24H Qty: 3 0RF metronidazole 500 mg tablet 500 mg PO TID Qty: 9 0RF Continued clopidogrel 75 mg Tablet 75 mg PO DAILY 30 Days Qty: 30 0RF aspirin 81 mg Tablet,Delayed Release (Dr/Ec) 81 mg PO DAILY 30 Days Qty: 30 0RF lisinopril 10 mg Tablet 10 mg PO DAILY 30 Days Qty: 30 0RF Protocol: Hold for SBP< HOLD for SBP < : 90 nicotine 21 mg/24 hr patch 24 hour 1 patch topical DAILY albuterol sulfate 90 mcg/actuation HFA aerosol inhaler 2 puff INHALATION Q4-6H PRN (Reason: Wheezing) atorvastatin 80 mg tablet 80 mg PO DAILY isosorbide mononitrate 30 mg tablet extended release 24 hr 30 mg PO DAILY amlodipine 5 mg tablet 5 mg PO DAILY Discharge Orders: Discharge Order (Routine); Ordered 12/29/22 Ordered By: Bg Jimenez Diet: Advance to usual diet Activity on Discharge: As tolerated Stand Alone Forms: Patient Portal Discharge page Care Plan Goals: Read below Health Concerns: Read below Plan of Treatment: Read below Assessment: You were admitted for treatment of diverticulitis. responsed well to course of IV antibiotics and fluids with gradually advancing your diet. Continue Levaquin and Flagyl as prescribed Advance your diet slowly, drink plenty of fluids Follow with PCP to arrange for Colonoscopy as outpatient
--- NOTE | 2022-12-29 10:38 | MHC.CM.PN ---
pt dcd home no servcies imm updated
== END 2022-12-29 11:25 | disposition home or self-care (01) | DRG 720 ==
LOC: HO.ED 14:46 → HO.EDOVER 15:36 → HO.S3 18:44
PROVIDERS: Internal Medicine; Physician Assistant Medical; Admitting Provider Student in an Organized Health Care Education/Training Program; Emergency Provider Emergency Medicine Emergency Medical Services; PCP Family Medicine; Visit Provider Student in an Organized Health Care Education/Training Program
DX: A41.9 Sepsis, unspecified organism (principal); E78.00 Pure hypercholesterolemia, unspecified; I25.10 Atherosclerotic heart disease of native coronary artery without angina pectoris; K59.00 Constipation, unspecified; K57.32 Diverticulitis of large intestine without perforation or abscess without bleeding; F17.210 Nicotine dependence, cigarettes, uncomplicated; Z20.822 Contact with and (suspected) exposure to COVID-19; I25.2 Old myocardial infarction; Z71.6 Tobacco abuse counseling; Z79.02 Long term (current) use of antithrombotics/antiplatelets; Z79.82 Long term (current) use of aspirin; Z79.899 Other long term (current) drug therapy
CPT/HCPCS: 0241U; 36415; 74177; 80048; 80076; 81001; 83605; 83690; 83735; 84484; 85025; 85027; 87040; 87086; 93005; 99285; J1650; J1956; J2270; J2405; Q9967

== ENCOUNTER → 2022-12-31 12:30 | Outpatient (BNVA) | payer OTHER, SELFPAY | PROVIDERS: Visit Provider Internal Medicine Cardiovascular Disease | DX: Z13.89 Encounter for screening for other disorder (principal) ==

== ENCOUNTER 2023-05-11 13:51 | Outpatient (AMB) | payer OTHER, SELFPAY ==
--- NOTE | 2023-05-11 13:58 | MHC.OFFVIS ---
Intake Vital Signs 05/11/23 13:59 Height 5 ft 6 in Weight 204 lb 2.369 oz BMI 32.9 BP 130/72 Blood Pressure Location Lt brachial Position Sitting Pulse 78 Pulse Source Monitor Intake Visit Reasons: 4 mth f/up Intake Note: 4 month follow up with EKG. 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 She was seen recently at [facility] when she presented with chest discomfort and ruled in for NSTEMI. She did not have any dynamic EKG changes. echocardiography showed ejection fraction of 45-50% with lateral wall motion abnormality. She was taken for cardiac catheterization but interestingly did not have any significant coronary artery disease to explain her symptoms. Given history of heavy smoking we felt that she had coronary basal spasm leading to her presentation. She was started on amlodipine along with aspirin and Plavix and was discharged home. Since then she has been doing well. She has not had any recurrent episodes. She recently got admitted for diverticulitis. She is on antibiotics right now. She feels bloated and has abdominal discomfort. 05/11/23: She returns for follow-up. She is smoking 1 pack per day. She has no chest discomfort or shortness of breath. We discussed about smoking cessation again. Blood pressure was elevated on last visit but she was experiencing abdominal pain and this stage abdominal pain is improved blood pressure is better too. Last LDL cholesterol was 182 in August 12, triglyceride 150, total cholesterol 253 and HDL 41. [facility] Medical History (Updated 05/11/23 @ 14:14 by Shorty Moody MD) Essential hypertension High cholesterol Surgical History History of cardiac cath History of cholecystectomy History of foot surgery History of tubal ligation Family History Mother Heart disease Father Heart attack Social History (Updated 05/11/23 @ 14:03 by LUCINDA Dee) Household Members: Family Household Members Other:: her mom Housing: House Do you presently have visiting nurse or other home services: No Alcohol intake: current Alcohol intake frequency: a few times a week Alcohol type: beer Patient Tobacco Use Status: Current everyday Tobacco user Tobacco use type: Cigarette Cigarette Packs Per Day: 1 Cigarettes Per Day: 20.0 Years Smoked: 40 +/- service: No Current occupational status: employed 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 Review of Systems Const Denies weakness ENT Denies dizziness Card Denies chest pain, Denies chest pain with activity, Denies syncope, Denies rapid heart rate, Denies pedal edema, Denies edema, Denies leg edema, Denies lightheadedness, Denies palpitations, Denies dyspnea, Denies dyspnea on exertion and Denies orthopnea Resp Denies cough, Denies dyspnea and Denies dyspnea on exertion GI Denies hematochezia and Denies change in stool character Musc Denies abnormal gait, Denies muscle cramps, Denies muscle weakness, Denies numbness, Denies radiating pain into limb and Denies tingling Neuro Denies abnormal gait, Denies dizziness, Denies syncope, Denies numbness, Denies tingling and Denies weakness Endo Denies palpitations Physical Exam Vital Signs: Last Vital Signs Pulse 78 05/11/23 13:59 BP 130/72 05/11/23 13:59 BMI result Body Mass Index 32.9 GENERAL APPEARANCE: in no acute distress, pleasant. NECK: no carotid bruit, no jugular venous distention. SKIN: no suspicious lesions, warm and dry. HEART: no murmurs, regular rate and rhythm. LUNGS: clear to auscultation bilaterally. ABDOMEN: soft, nontender. EXTREMITIES: no edema. PERIPHERAL PULSES: equal. NEUROLOGIC: No gross deficits, AAO X 3 Office Procedures EKG Details: Sinus rhythm 78 beats per minute, normal ECG otherwise. QTC 437 milliseconds. [id number], Complete Assessment & Plan Assessment & Plan (1) Coronary vasospasm: Code(s): I20.1 - Angina pectoris with documented spasm (2) Essential hypertension: Code(s): I10 - Essential (primary) hypertension (3) High cholesterol: Code(s): E78.00 - Pure hypercholesterolemia, unspecified Plan 62-year-old female with NSTEMI due to coronary with a spasm in the past. She continues to smoke. I have explained to her that coronary was spasm is strongly linked with tobacco abuse. She is taking amlodipine and isosorbide mononitrate at this point. She is tolerating her medications. Detailed discussion about smoking cessation was done. Continue same medications currently. She is on atorvastatin 80 mg once a day. She has not had any recent lipid testing. She needs repeat fasting lipid panel. Thank you for allowing me to participate in the care of your patient. Please feel free to contact me if you have any questions. Coding Level of Care Code Est Pt Level 4 (76379) Diagnoses Coronary vasospasm I20.1 Essential hypertension I10 High cholesterol E78.00 CPT Codes EKG - CPT: 78800-[id number], Complete ([id number])
[2023-05-11 13:59] VITALS: BP 130/72; PULSE 78; BMI 32.9
== END 2023-05-11 14:17 | disposition home or self-care (01) ==
PROVIDERS: Visit Provider Internal Medicine Cardiovascular Disease
DX: I20.1 Angina pectoris with documented spasm (principal); I10 Essential (primary) hypertension; E78.00 Pure hypercholesterolemia, unspecified
CPT/HCPCS: 93010; 99214

== ENCOUNTER → 2023-05-11 13:51 | Outpatient (BNVA) | payer OTHER, SELFPAY | PROVIDERS: Visit Provider Internal Medicine Cardiovascular Disease | DX: I20.1 Angina pectoris with documented spasm (principal); I21.4 Non-ST elevation (NSTEMI) myocardial infarction; I10 Essential (primary) hypertension; E78.00 Pure hypercholesterolemia, unspecified; Z79.899 Other long term (current) drug therapy | CPT/HCPCS: 93005 ==

== ENCOUNTER 2023-09-28 14:53 | Outpatient (AMB) | payer OTHER, SELFPAY ==
[2023-09-28 14:56] VITALS: BP 110/70; PULSE 106; BMI 33.3
--- NOTE | 2023-09-28 14:56 | A.OFFVIS_ITS ---
Intake Vital Signs 09/28/23 14:56 Height 5 ft 6 in Weight 206 lb 5.643 oz BMI 33.3 BP 110/70 Blood Pressure Location Rt brachial Position Sitting Pulse 106 H Pulse Source Pulse Oximeter Intake Visit Reasons: 4 mth f/up Intake Note: 4 mnht f/up pt its feeling fine. 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 She was seen recently at [facility] when she presented with chest discomfort and ruled in for NSTEMI. She did not have any dynamic EKG changes. echocardiography showed ejection fraction of 45-50% with lateral wall motion abnormality. She was taken for cardiac catheterization but interestingly did not have any significant coronary artery disease to explain her symptoms. Given history of heavy smoking we felt that she had coronary basal spasm leading to her presentation. She was started on amlodipine along with aspirin and Plavix and was discharged home. Since then she has been doing well. She has not had any recurrent episodes. She recently got admitted for diverticulitis. She is on antibiotics right now. She feels bloated and has abdominal discomfort. 05/11/23: She returns for follow-up. Joey fajardo is smoking 1 pack per day. She has no chest discomfort or shortness of breath. We discussed about smoking cessation again. Blood pressure was elevated on last visit but she was experiencing abdominal pain and this stage abdominal pain is improved blood pressure is better too. Last LDL cholesterol was 182 in August 12, triglyceride 150, total cholesterol 253 and HDL 41. 09/28/23: She returns for follow-up. She had bronchitis and is improving at this point. Taking medications regularly. Denying chest discomfort or any shortness of breath. She continues to smoke but plans to quit this year. She did not have any repeat lipid panel since July 2022. [facility] Medical History (Updated 05/11/23 @ 14:14 by Shorty Moody MD) Essential hypertension High cholesterol Surgical History History of foot surgery History of tubal ligation History of cholecystectomy History of cardiac cath Family History Mother Heart disease Father Heart attack Social History Household Members: Family Household Members Other:: her mom Housing: House Do you presently have visiting nurse or other home services: No Alcohol intake: current Alcohol intake frequency: a few times a week Alcohol type: beer Patient Tobacco Use Status: Current everyday Tobacco user Tobacco use type: Cigarette Cigarette Packs Per Day: 1 Cigarettes Per Day: 20.0 Years Smoked: 40 +/- service: No Current occupational status: employed 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 Review of Systems Const Reports chills, Reports fatigue, Reports fever(s), Reports frequent falls, Reports weakness, Reports weight gain and Reports weight loss ENT Reports dizziness Card Reports chest pain, Reports leg edema, Reports lightheadedness, Reports palpitations, Reports dyspnea and Reports dyspnea on exertion Resp Reports cough, Reports dyspnea and Reports dyspnea on exertion GI Reports hematochezia Musc Reports abnormal gait, Reports muscle weakness, Reports numbness, Reports radiating pain into limb and Reports tingling Neuro Reports abnormal gait, Reports dizziness, Reports frequent falls, Reports numbness, Reports tingling and Reports weakness Endo Reports fatigue and Reports palpitations Physical Exam Vital Signs: Last Vital Signs Pulse 106 H 09/28/23 14:56 BP 110/70 09/28/23 14:56 BMI result Body Mass Index 33.3 GENERAL APPEARANCE: in no acute distress, pleasant. NECK: no carotid bruit, no jugular venous distention. SKIN: no suspicious lesions, warm and dry. HEART: no murmurs, regular rate and rhythm. Tachycardic. LUNGS: clear to auscultation bilaterally. ABDOMEN: soft, nontender. EXTREMITIES: no edema. PERIPHERAL PULSES: equal. NEUROLOGIC: No gross deficits, AAO X 3 Assessment & Plan Assessment & Plan (1) High cholesterol: Code(s): E78.00 - Pure hypercholesterolemia, unspecified (2) Essential hypertension: Code(s): I10 - Essential (primary) hypertension (3) Coronary vasospasm: Code(s): I20.1 - Angina pectoris with documented spasm Plan [age] year female who is here for follow-up. She was seen originally for NSTEMI which was thought to be due to coronary vasospasm. She was treated with the amlodipine and has been symptom free. Unfortunately she continues to smoke which we discussed about and she plans to quit this year. Recent bronchitis episode and she is mildly tachycardic which is explained by that. Has not had any repeat cholesterol testing. We will arrange a fasting lipid panel. Thank you for allowing me to participate in the care of your patient. Please feel free to contact me if you have any questions. Orders: Orders Lipid Panel Today E78.00 - Pure hypercholesterolemia, unspecified Coding Level of Care Code Est Pt Level 4 (08849) Diagnoses High cholesterol E78.00 Essential hypertension I10 Coronary vasospasm I20.1
== END 2023-09-28 15:14 | disposition home or self-care (01) ==
PROVIDERS: Visit Provider Internal Medicine Cardiovascular Disease
DX: E78.00 Pure hypercholesterolemia, unspecified (principal); I10 Essential (primary) hypertension; I20.1 Angina pectoris with documented spasm
CPT/HCPCS: 99214

== ENCOUNTER → 2023-09-28 14:53 | Outpatient (BNVA) | payer OTHER, SELFPAY | PROVIDERS: Visit Provider Internal Medicine Cardiovascular Disease ==

== ENCOUNTER 2024-04-14 06:46 | Outpatient (REF) | payer OTHER, SELFPAY ==
[2024-04-14 07:56] LABS: Cholesterol 175 mg/dL (<200); HDL Cholesterol 49 mg/dL (>40); LDL Cholesterol Calculated 104 mg/dL (<100); Triglycerides 110 mg/dL (<150)
== END 2024-04-14 06:47 | disposition home or self-care (01) ==
LOC: HO.LAB 06:46
PROVIDERS: PCP Family Medicine; Visit Provider Internal Medicine Cardiovascular Disease
DX: E78.00 Pure hypercholesterolemia, unspecified (principal)
CPT/HCPCS: 36415; 80061

== ENCOUNTER 2024-04-19 14:17 | Outpatient (AMB) | payer OTHER, SELFPAY ==
[2024-04-19 14:40] VITALS: BP 120/78; PULSE 83; BMI 33.8
--- NOTE | 2024-04-19 14:40 | A.OFFVIS_ITS ---
Vital Signs 04/19/24 14:40 Height 5 ft 6 in Weight 209 lb 7.026 oz BMI 33.8 BP 120/78 Blood Pressure Location Lt brachial Position Sitting Pulse 83 Pulse Source Monitor Intake Visit Reasons: 6 mth f/up Allergies No Known Allergies Allergy (Mild, Verified 05/11/23 14:02) UNKNOWN Medication List - Last Reconciled 04/21/24 by Geno Phillips NP albuterol sulfate 90 mcg/actuation 2 puffs inhalation Q4-6H PRN amlodipine 5 mg PO DAILY aspirin 81 mg PO DAILY 30 days atorvastatin 80 mg PO DAILY ezetimibe 10 mg PO DAILY isosorbide mononitrate ER 30 mg PO DAILY lisinopril 10 mg See Protocol PO DAILY 30 days HPI Comments Details: 63-year-old patient here for a follow-up. She denies any chest pains, shortness of breath, dizziness, or palpitations. She has some questions regarding her medications. She is unfortunately still smoking but is down to 1.5 packs per day. [facility] Medical History Essential hypertension High cholesterol Surgical History History of foot surgery History of tubal ligation History of cholecystectomy History of cardiac cath Family History Mother Heart disease Father Heart attack Social History Household Members: Family Household Members Other:: her mom Housing: House Do you presently have visiting nurse or other home services: No Alcohol intake: current Alcohol intake frequency: a few times a week Alcohol type: beer Patient Tobacco Use Status: Current everyday Tobacco user Tobacco use type: Cigarette Cigarette Packs Per Day: 1 Cigarettes Per Day: 20.0 Years Smoked: 40 +/- service: No Current occupational status: employed 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 Review of Systems Const Denies weakness ENT Denies dizziness Card Denies chest pain, Denies chest pain with activity, Denies syncope, Denies rapid heart rate, Denies pedal edema, Denies edema, Denies leg edema, Denies lightheadedness, Denies palpitations, Denies dyspnea, Denies dyspnea on exertion and Denies orthopnea Resp Denies cough, Denies dyspnea and Denies dyspnea on exertion GI Denies hematochezia and Denies change in stool character Musc Denies abnormal gait, Denies muscle cramps, Denies muscle weakness, Denies numbness, Denies radiating pain into limb and Denies tingling Neuro Denies abnormal gait, Denies dizziness, Denies syncope, Denies numbness, Denies tingling and Denies weakness Endo Denies palpitations Physical Exam Vital Signs: Last Vital Signs Pulse 83 04/19/24 14:40 BP 120/78 04/19/24 14:40 BMI result Body Mass Index 33.8 Const General: healthy appearing and no acute distress Orientation/consciousness: patient oriented x3 HEENT Head: Yes normal to inspection Eyes General: appearance normal, both eyes and all related structures Neck Neck: Yes normal visual inspection Chest Chest palpation & inspection: normal inspection of the chest Resp Effort & Inspection: normal respiratory effort Auscultation: clear to auscultation bilaterally Cardio Jugular venous distension: no JVD Palpation: normal PMI Rate: regular rate Rhythm: regular rhythm Heart sounds: S1 normal heart sound present, S2 normal heart sound present, no click, no gallops, no murmurs and no rubs GI Inspection: Yes normal to inspection Palpation (GI): Soft to palpation Skin General skin exam: no rashes or lesions noted Neuro General: patient oriented x3 Extrem General: Yes normal to inspection Psych Appearance: grossly normal Office Procedures EKG Details: EKG today. Normal Sinus Rhythm. Rate 83 bpm. QRS 76 ms. QTc 25 ms. IN 156 ms. [id number], Complete Assessment & Plan Assessment & Plan (1) Non-ST elevation PR (NSTEMI): Code(s): I21.4 - Non-ST elevation (NSTEMI) myocardial infarction Category: Medical (2) High cholesterol: Code(s): E78.00 - Pure hypercholesterolemia, unspecified Category: Medical (3) Essential hypertension: Code(s): I10 - Essential (primary) hypertension Category: Medical (4) Cardiomyopathy: Code(s): I42.9 - Cardiomyopathy, unspecified Category: Medical Plan Cardiac catherization back in Jul 2022. Will have her stop Plavix at this time. Continue ASA 81mg. Last limited echocardiogram in November 2022 showed essentially normal study with grade 1 diastolic dysfunction. Will repeat full echocardiogram. She has not picked up Zetia yet. She will now as she understands it works with atorvastatin. Will repeat lab work in 2-3 months.LDL 04/14/2024 was 105. Blood pressure within range - continue medications. Orders: Orders Basic Metabolic Panel 2 Months E78.00 - Pure hypercholesterolemia, unspecified Lipid Panel 2 Months E78.00 - Pure hypercholesterolemia, unspecified CA echo transthoracic complete 5 Months I10 - Essential (primary) hypertension, I21.4 - Non-ST elevation (NSTEMI) myocardial infarction, I42.9 - Cardiomyopathy, unspecified Coding Level of Care Code Est Pt Level 4 (55849) Diagnoses Non-ST elevation PR (NSTEMI) I21.4 High cholesterol E78.00 Essential hypertension I10 Cardiomyopathy I42.9 CPT Codes EKG - CPT: 18039-[id number], Complete ([id number])
== END 2024-04-19 15:05 | disposition home or self-care (01) ==
PROVIDERS: Visit Provider Nurse Practitioner
DX: I21.4 Non-ST elevation (NSTEMI) myocardial infarction (principal); E78.00 Pure hypercholesterolemia, unspecified; I10 Essential (primary) hypertension; I42.9 Cardiomyopathy, unspecified
CPT/HCPCS: 93010; 99214

== ENCOUNTER → 2024-04-19 14:17 | Outpatient (BNVA) | payer OTHER, SELFPAY | PROVIDERS: Visit Provider Nurse Practitioner | DX: I21.4 Non-ST elevation (NSTEMI) myocardial infarction (principal); I10 Essential (primary) hypertension; I42.9 Cardiomyopathy, unspecified; E78.00 Pure hypercholesterolemia, unspecified; Z79.82 Long term (current) use of aspirin | CPT/HCPCS: 93005 ==

== ENCOUNTER 2024-07-17 14:55 | Emergency (ER) | payer OTHER, SELFPAY ==
--- NOTE | ~2024-07-17 | XR_ITS ---
EXAMINATION: XR ABDOMEN KUB CLINICAL INDICATION: Evaluate stool burden COMPARISON: CT abdomen from 12/24/2022 TECHNIQUE: AP view of the abdomen. FINDINGS: No dilated loops of bowel visualized. Mild fecal loading throughout the colon greatest in the rectosigmoid region. T-shaped IUD in the pelvis. Degenerative arthropathy of the thoracolumbar and lumbosacral spine. Slight levocurvature of the lower thoracic spine. Visualized portions of the lower chest are unremarkable. Soft tissues are unremarkable. XR/XR KUB IMPRESSION: 1. No dilated loops of bowel visualized. 2. Mild fecal loading throughout the colon greatest in the rectosigmoid region. Electronically signed by: Keila Johnston MD 07/17/2024 04:15 PM EDT
--- NOTE | 2024-07-17 14:59 | ED_ITS ---
HPI - General Adult General Chief complaint: Abdominal Pain Stated complaint: l side pain-unable to use restroom Time Seen by Provider: 07/17/24 17:51 Source: patient Limitations: no limitations History of Present Illness ED Provider: Le Alberts PA-C HPI narrative: 63-year-old female with a history of known coronary artery disease, hypertension, hyperlipidemia and chronic constipation, presents with constipation x5 days. Associated abdominal discomfort. Denies distention, nausea, vomiting or fever. Patient has been using bqro-pkn-[id number] Colace and MiraLax daily without relief of symptoms. Patient has been straining, she now has rectal pain, denies obvious hemorrhoids. Related Data Home Medications ?Medication ?Instructions ?Recorded ?Confirmed amlodipine 5 mg tablet 5 mg PO DAILY 08/27/22 04/19/24 atorvastatin 80 mg tablet 80 mg PO DAILY 08/27/22 04/19/24 isosorbide mononitrate 30 mg 30 mg PO DAILY 08/27/22 04/19/24 tablet,extended release 24 hr albuterol sulfate 90 mcg/actuation 2 puff inhalation Q4-6H PRN 12/24/22 04/19/24 aerosol inhaler Wheezing Previous Rx's ?Medication ?Instructions ?Recorded aspirin 81 mg tablet,delayed 81 mg PO DAILY 30 days #30 tabs 08/03/22 release lisinopril 10 mg tablet 10 mg PO DAILY 30 days #30 tabs 08/03/22 ezetimibe 10 mg tablet 10 mg PO DAILY #60 tabs 04/18/24 hydrocortisone acetate 25 mg 25 mg MA BID PRN hemorrhoids #24 ea 07/17/24 rectal suppository (Anusol-HC) Allergies Allergy/AdvReac Type Severity Reaction Status Date / Time oxycodone AdvReac Nausea and Verified 07/17/24 15:03 Vomiting Review of Systems 2 Review of Systems: Yes all other systems are reviewed and are negative Constitutional: Constitutional: Denies fatigue and Denies fever(s) Gastrointestinal: Gastrointestinal: Reports abdominal pain, Reports constipation, Denies nausea and Denies vomiting Endocrine: Endocrine: Denies fatigue [facility] Past Medical History Attestation statement: The following information was validated with the patient. Medical History Essential hypertension High cholesterol Surgical History History of foot surgery History of tubal ligation History of cholecystectomy History of cardiac cath Family History Family History Mother Heart disease Father Heart attack Social History Social History Household Members: Family Household Members Other:: her mom Housing: House Do you presently have visiting nurse or other home services: No Alcohol intake: current Alcohol intake frequency: a few times a week Alcohol type: beer Patient Tobacco Use Status: Current everyday Tobacco user Tobacco use type: Cigarette Cigarette Packs Per Day: 1 Cigarettes Per Day: 20.0 Years Smoked: 40 +/- Advance Directives: No Advance Directives Information Provided: No Do you have a plan to hurt others: No Plan service: No Current occupational status: employed 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 Physical Exam ED Vital Signs: Vital Signs - 24 hr 07/17/24 15:01 07/17/24 18:14 Temperature 98.3 F 98 F Pulse Rate 87 64 Respiratory Rate 18 14 Blood Pressure 135/81 112/66 Pulse Oximetry 98 97 Oxygen Delivery Method Room Air Room Air BMI result Body Mass Index 32.8 Const Other: Alert, well in appearance Orientation/consciousness: patient oriented x3 Resp Other: Nonlabored respiration GI Other: Abdomen is soft, nondistended, nontender no guarding, on rectal exam, there are no external hemorrhoids, no active bleeding or purulent discharge per rectum, loose stool noted to be oozing per rectum Skin Other: Warm dry no rash Neuro General: patient oriented x3, no focal motor deficits and CN's II-XI intact bilaterally Psych Other: Calm cooperative Course Course Course Narrative: This is a rapid medical exam. Deferred additional HPI, ROS, PE to primary provider. 63 yo female with history of HTN, HLD, COPD, diverticulitis here with complaints of constipation, rectal pain/pressure, left lower quadrant abdominal pain. Returned from vacation Thursday. Had small BM . Last normal BM Thursday or Thursday. Taking colace, miralax. Will obtain labs, UA, KUB VSS -Abisai Morse APRN Medical Decision Making Medical Decision Making MDM Narrative: 63-year-old female with a history of known coronary artery disease, hypertension, hyperlipidemia and chronic constipation, presents with constipation x5 days. Associated abdominal discomfort. Denies distention, nausea, vomiting or fever. Patient has been using [id number]-gpc-lwqlobn Colace and MiraLax daily without relief of symptoms. Patient has been straining, she now has rectal pain, denies obvious hemorrhoids. Problem: Known constipation History: Per patient I have considered the following differential diagnoses: Fecal impaction, perirectal abscess, constipation, obstipation, bowel obstruction hemorrhoids Plan: Screening labs and a KUB were obtained, the patient was constipated without fecal impaction or evidence of obstruction. Furthermore, she has no obstructive symptoms beyond the constipation. We will send with an aggressive bowel regimen. In regard to the rectal pain, there was no evidence of perirectal abscess, she likely has internal hemorrhoids secondary to the straining. We will send with Anusol suppositories. She can follow up with primary care as needed I have independently reviewed the following tests: Labs: No leukocytosis, not anemic, no electrolyte abnormality KUB: Constipation without obstructive pattern Lab Data 07/17/24 15:09 07/17/24 15:09 Labs: Lab Results 07/17/24 Range/Units 15:09 WBC 9.0 (4.8-10.8) X10*3/uL RBC 4.30 (4.20-5.50) X10*6/uL Hgb 13.6 (12.0-16.0) g/dl Hct 39.9 (37.0-47.0) % MCV 92.8 (80.0-98.0) fL MCH 31.6 (27.0-33.0) pg MCHC 34.1 (31.0-35.0) g/dl RDW 12.5 (11.0-16.0) % Plt Count 378 (160-400) X10*3/uL MPV 9.5 (9.4-12.3) fL Immature Gran % (Auto) 0.3 (0.0-0.4) % Neut % (Auto) 72.7 (45-73) % Lymph % (Auto) 14.9 L (20-40) % [place] % (Auto) 8.7 (2-11) % Eos % (Auto) 2.8 (0-4) % Baso % (Auto) 0.6 (0-2) % Lymph # (Auto) 1.3 (1.2-4.9) X10*3/uL [place] # (Auto) 0.8 (0.1-1.2) X10*3/uL Eos # (Auto) 0.3 (0.0-0.4) X10*3/uL Baso # (Auto) 0.1 (0.0-0.2) X10*3/uL Abs Immat Gran (auto) 0.03 (0.00-0.03) X10*3/uL Absolute Neuts (auto) 6.6 (2.0-8.3) x10*3/uL Absolute Nucleated RBC 0.000 (0.0-0.012) X10*3/uL Nucleated RBC % (auto) 0.0 (0.0-0.2) /100WBC Sodium 140 (135-145) mmol/L Potassium 4.1 (3.3-5.1) mmol/L Chloride 105 (96-108) mmol/L Carbon Dioxide 23 (22-29) mmol/L Anion Gap 16 (12-20) BUN 9 (9-16) mg/dL Creatinine 0.75 (0.5-1.4) mg/dL Estim Creat Clear Calc 90.1 Estimated GFR > 60 Random Glucose 139 H (60-115) mg/dL Calcium 9.6 D (8.4-10.2) mg/dL Total Bilirubin 1.1 H (0.0-1.0) mg/dL Direct Bilirubin 0.3 (0.0-0.5) mg/dL AST 20 (5-31) U/L ALT 17 (0-31) U/L Alkaline Phosphatase 109 (39-117) U/L Total Protein 7.3 (6.5-8.0) g/dL Albumin 3.9 (3.5-5.0) g/dL Discharge Plan Discharge Clinical Impression: Constipation, Hemorrhoid Patient Disposition: Home, Self-Care Instructions: Constipation (ED), Hemorrhoids (ED), Sitz Bath (DC) Additional Instructions: You were found to be constipated, all of your labs were normal. See home care instructions. Continue to use chcv-[id number]-bnxjxng Colace several times a day. In addition, you need to use the MiraLax more frequently. You can mixed the powder per package instructions with a liquid such as Gatorade or water, drink it every hour until you begin having multiple large volume bowel movements. In regard to the hemorrhoids, you can implement Sitz baths to help alleviate the discomfort. Use the suppositories as needed for pain as well. Follow up with your primary care provider as needed. Prescriptions: New hydrocortisone acetate [Anusol-HC] 25 mg suppository 25 mg MA BID PRN (Reason: hemorrhoids) Qty: 24 0RF No Action ezetimibe 10 mg tablet 10 mg PO DAILY Qty: 60 4RF aspirin 81 mg Tablet,Delayed Release (Dr/Ec) 81 mg PO DAILY 30 Days Qty: 30 0RF lisinopril 10 mg Tablet 10 mg PO DAILY 30 Days Qty: 30 0RF Protocol: Hold for SBP< HOLD for SBP < : 90 albuterol sulfate 90 mcg/actuation HFA aerosol inhaler 2 puff INHALATION Q4-6H PRN (Reason: Wheezing) atorvastatin 80 mg tablet 80 mg PO DAILY isosorbide mononitrate 30 mg tablet extended release 24 hr 30 mg PO DAILY amlodipine 5 mg tablet 5 mg PO DAILY Print Language: Pakistani
[2024-07-17 15:01] VITALS: BP 135/81; PULSE 87; RESP 18; TEMP 36.8; O2SAT 98; BMI 32.8
[2024-07-17 15:13] LABS: MANUAL DIFF FLAG NO
[2024-07-17 15:15] LABS: Basophils Absolute Auto 0.1 X10*3/uL (0.0-0.2); Basophils Percent Auto 0.6 % (0-2); Eosinophils Absolute Auto 0.3 X10*3/uL (0.0-0.4); Eosinophils Percent Auto 2.8 % (0-4); Hematocrit 39.9 % (37.0-47.0); Hemoglobin 13.6 g/dl (12.0-16.0); Imm Gran Abs Auto 0.03 X10*3/uL (0.00-0.03); Imm Gran Pct Auto 0.3 % (0.0-0.4); Lymphocytes Absolute Auto 1.3 X10*3/uL (1.2-4.9); Lymphocytes Percent Auto 14.9 % (20-40); Mean Corpuscular HGB Conc 34.1 g/dl (31.0-35.0); Mean Corpuscular Hemoglobin 31.6 pg (27.0-33.0); Mean Corpuscular Volume 92.8 fL (80.0-98.0); Mean Platelet Volume 9.5 fL (9.4-12.3); Monocytes Absolute Auto 0.8 X10*3/uL (0.1-1.2); Monocytes Percent Auto 8.7 % (2-11); Neutrophils Absolute Auto 6.6 x10*3/uL (2.0-8.3); Neutrophils Percent Auto 72.7 % (45-73); Platelet Count 378 X10*3/uL (160-400); Red Cell Distribution Width 12.5 % (11.0-16.0)
[2024-07-17 15:29] LABS: Anion Gap 16 (12-20)
[2024-07-17 15:34] LABS: Alanine Aminotransferase 17 U/L (0-31); Albumin Level 3.9 g/dL (3.5-5.0); Alkaline Phosphatase 109 U/L (39-117); Aspartate Amino Transferase 20 U/L (5-31); Bilirubin Direct 0.3 mg/dL (0.0-0.5); Bilirubin Total 1.1 mg/dL (0.0-1.0); Blood Urea Nitrogen 9 mg/dL (9-16); Calcium 9.6 mg/dL (8.4-10.2); Carbon Dioxide 23 mmol/L (22-29); Chloride 105 mmol/L (96-108); Creatinine Clr Calc Pharmacy 90.1; Estimated Glomerular Filt Rate > 60; Glucose Random 139 mg/dL (60-115); Potassium 4.1 mmol/L (3.3-5.1); Sodium 140 mmol/L (135-145); Total Protein 7.3 g/dL (6.5-8.0)
[2024-07-17 18:14] VITALS: BP 112/66; PULSE 64; RESP 14; TEMP 36.6; O2SAT 97
[2024-07-17 19:01] VITALS: BP 112/66; PULSE 64; RESP 14; TEMP 36.6; O2SAT 97
== END 2024-07-17 19:01 | disposition home or self-care (01) ==
PROVIDERS: Nurse Practitioner Family; Emergency Provider Internal Medicine; PCP Family Medicine
DX: K59.00 Constipation, unspecified (principal); K64.9 Unspecified hemorrhoids; I25.10 Atherosclerotic heart disease of native coronary artery without angina pectoris; I10 Essential (primary) hypertension; E78.5 Hyperlipidemia, unspecified; F17.210 Nicotine dependence, cigarettes, uncomplicated; Z79.899 Other long term (current) drug therapy
CPT/HCPCS: 36415; 74018; 80048; 80076; 85025; 99283

== ENCOUNTER 2024-10-18 10:28 | Outpatient (REF) | payer OTHER, SELFPAY ==
--- OUTSIDE RECORDS SUMMARY | 2024-10-18 11:31 | XMS_ITS | Data Portability ---
Author Organization [place] - [facility], Allergy Address [address] [place] [id number] Care Team Providers Care Performance Consultant Name Role Phone BOBY DARLING Primary Care Provider [phone] Assessment Encounter Date Assessment Date Assessment LastModified by Organization Details LastModified Time 08/22/2024 08/22/2024 63 year old female with a reported history of sleep apnea on a sleep study many years ago. She continues to snore loudly and has significant daytime fatigue. On examination today she has a mild septal deviation to the right. Tonsils are normal in size and appearance, not obstructive. I would recommend an updated sleep study as it has been several years since her last at home study (ERIKA 27, 100% of apneas were obstructive). She has lost some weight since then. She can follow up for the sleep study for review. She could potentially be a candidate for Inspire, however, this usually requires a CPAP trial first. We discussed she could try a nasal pillow, which would be less bothersome for her claustrophobia . [email or web address] Not available 08/22/2024 11:09:07 Plan of Treatment Reminders Order Date Submit Date Provider Last Modified By Organization Details Last Modified Time Details Appointments None recorde d. Lab None recorde d. Referral None recorde d. Procedures None recorde d. Surgeries None recorde d. Imaging polysom nogram, diagnos tic, 6 yrs or older [facility], [address] [place], [address], 4 09:57:46 Medication Orders None recorde d. Patient TargetsNo targets recorded. Patient InstructionsNo instructions recorded. Reason for Referral None Reported. Results Created Date Observation Date Name Description Value Unit Range Abnormal Flag Note LastModifiedBy Organization Detail LastModifiedTime 08/22/20 sleep study , diagn ostic (PROC ) No observ ation record ed. [email or web address] Not Available 2023 11:13:31 08/25/20 24 06/29/2019 sleep study , diagn ostic (PROC ) No observ ation record ed. [email or web address] Not Available 2023 09:17:06 Result Notes None recorded. Problems Name Problem SNOMED Code Status Onset Date Resolution Date Notes Provider Name and Address Organization Details Recorded Time Snoring 47251487 Active DOUGIE REYNOLDS PA-C [address] [facility],[place] [address], [place], [address], [facility] 4 10:43:23 Obstructive sleep apnea syndrome 32623441 Active DOUGIE REYNOLDS PA-C [address] [facility],[place] [address], [place], [address], [facility] 4 10:43:27 Problem Notes None recorded. Procedures Surgical History None recorded. Imaging Results Imaging Date Name Status LastModified by Organiz ation Details LastModified Time 08/22/2024 sleep study, diagnostic (PROC) completed [email or web address] Information not available 08/22/2024 11:13:31 06/29/2019 sleep study, diagnostic (PROC) completed [email or web address] Information not available 08/25/2024 09:17:06 Procedure Notes None recorded. Medical Equipment None Reported. Medications Name Sig Start Date Stop Date Status Note LastModified by Organization Details LastModified Time atorvastatin 80 mg tablet TAKE 1 TABLET BY MOUTH EVERY DAY active Not Available Not Available No t Available doxycycline hyclate 100 mg capsule TAKE 1 CAPSULE BY MOUTH TWICE DAILY FOR 7 DAYS active Not Available Not Available No t Available azithromycin 250 mg tablet active Not Available Not Available Not Available prednisone 20 mg tablet TAKE 3 TABLETS BY MOUTH EVERY DAY FOR 5 DAYS active Not Available Not Available No t Available isosorbide mononitrate ER 30 mg tablet,exten ded release 24 hr TAKE 1 TABLET BY MOUTH EVERY DAY active Not Available Not Available No t Available clopidogrel 75 mg tablet TAKE 1 TABLET BY MOUTH EVERY DAY active Not Available Not Available No t Available amlodipine 5 mg tablet TAKE 1 TABLET BY MOUTH EVERY DAY active Not Available Not Available No t Available aspirin 81 mg tablet,delay ed release TAKE 1 TABLET BY MOUTH DAILY active Not Available Not Available Not Available lisinopril 10 mg tablet TAKE 1 TABLET BY MOUTH EVERY DAY active Not Available Not Available No t Available albuterol sulfate HFA 90 mcg/actuatio n aerosol inhaler INHALE 2 PUFFS BY MOUTH EVERY 4 TO 6 HOURS NEEDED active Not Available Not Available No t Available naproxen 500 mg tablet active Not Available Not Available No t Available ezetimibe 10 mg tablet TAKE 1 TABLET BY MOUTH DAILY active Not Available Not Available Not Available Spiriva with HandiHaler 18 mcg and inhalation capsules INHALE THE CONTENTS OF 1 CAPSULE VIA INHALATION DEVICE EVERY DAY active Not Available Not Available No t Available Vitals Date Recorded Body height Body mass index (BMI) Body weight Provider Name and Address Organization Details Last Updated DateTime 08/22/2024 170.18 cm 32.1 kg/m2 78167.44 g Maritza Elliott [place] [facility] 08/22/2024 10:35:39 Social History None recorded. Functional Status None recorded. Mental Status None recorded. Family History Nothing Reported. Medical History No medical history recorded. Gynecological HistoryNo gynecological history recorded. Obstetrics History GPAL:G 0 P 0 0 0 0 Past Encounters Encounter ID Performer Location Encounter Start Date Encounter Closed Date Diagnosis/Indication Diagnosis SNOMED-CT Code Diagnosis ICD10 Code Diagnosis Note [id number] DOUGIE REYNOLDS PA-C [facility] [address] [address] 08/22/2024 10:14:55 08/22/2024 10:44:54 Snoring 91794576 R06.83 Obstructiv e sleep apnea syndrome 27691928 G47.33 Health Concerns Section Related Observation LastModified by Organization Detai ls LastModified Time None Recorded Concern Status LastModified by Organization Details LastModified Time None Recorded Advance Directives Directive None Recorded Payers Encounter Date Sequence Insurance Name Policy Number Policy Fiore Covered Member ID Fiore Member ID Guarantor Name 08/22/[address] [place] [address] [id number] Joyce Boogie [id number] Joyce Boogie Notes Date Note Type Note Provider Name and Address Organization Details Recorded Time 08/22/2024 text/html 63 year old samir lozano presents today for evaluation of snoring.She reports she has had trouble with snoring for as long as she can remember. She does keep her partner up at night because of it. She is a side sleeper, she flips from side to side all night. She cannot sleep on her back because of the snoring. She feels very tired during the day. She reports that she feels like she could fall asleep standing up.She had a sleep study several years ago, and she was told that she had sleep apnea. She is claustrophobic and was very resistant to trying CPAP as a result. She has dentures so she could not do a mandibular advancement device. DOUGIE REYNOLDS PA-C [address] [place] [address],[place] [address], [place], [address], [facility] - [facility] 08/22/2024 11:09:44 OBGyn Episode No OBEpisode recorded.
[2024-10-18 12:04] LABS: Anion Gap 9 (12-20); Blood Urea Nitrogen 13 mg/dL (9-16); Calcium 9.2 mg/dL (8.4-10.2); Carbon Dioxide 27 mmol/L (22-29); Chloride 109 mmol/L (96-108); Cholesterol 188 mg/dL (<200); Estimated Glomerular Filt Rate > 60; Glucose Random 171 mg/dL (60-115); HDL Cholesterol 57 mg/dL (>40); LDL Cholesterol Calculated 99 mg/dL (<100); Potassium 4.5 mmol/L (3.3-5.1); Sodium 140 mmol/L (135-145); Triglycerides 164 mg/dL (<150)
== END 2024-10-18 10:29 | disposition home or self-care (01) ==
LOC: HO.LAB 10:28
PROVIDERS: PCP Family Medicine; Visit Provider Nurse Practitioner
DX: E78.00 Pure hypercholesterolemia, unspecified (principal)
CPT/HCPCS: 36415; 80048; 80061

== ENCOUNTER 2024-10-20 14:19 | Outpatient (AMB) | payer OTHER, SELFPAY ==
[2024-10-20 14:22] VITALS: BP 112/62; PULSE 66; BMI 33.4
--- NOTE | 2024-10-20 14:22 | A.OFFVIS_ITS ---
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: No Allergies oxycodone Adverse Reaction (Verified 10/20/24 14:24) Nausea and Vomiting Medication List - Last Reconciled 10/20/24 by Mena Thompson, POWER LINEWORKER-C albuterol sulfate 90 mcg/actuation 2 puffs inhalation Q4-6H PRN amlodipine 5 mg PO DAILY aspirin 81 mg PO DAILY 30 days atorvastatin 80 mg PO DAILY ezetimibe 10 mg PO DAILY hydrocortisone acetate (Anusol-HC) 25 mg IN BID PRN isosorbide mononitrate ER 30 mg PO DAILY lisinopril 10 mg See Protocol PO DAILY 30 days HPI HPI 6 mth f/up s/p echo / lipids: Details: Joyce is a 63-year-old female with past medical history of smoking, hyperlipidemia who had NSTEMI 07/2022 with cardiac catheterization showing no significant coronary artery disease. She was thought to have coronary vasospasm and was started on amlodipine and isosorbide. She now presents for follow-up. Today she reports she has been doing well since her last visit in March. She has no chest discomfort at rest or with activity. She has no shortness of breath, PND, orthopnea or edema. No heart palpitations, lightheadedness, presyncope, syncope. She tolerates normal ADLs without difficulty. She smokes 1 pack of cigarettes per day. She takes her meds as directed. She is retiring in 2 months. [facility] Medical History Essential hypertension High cholesterol Surgical History (Updated 10/20/24 @ 17:16 by Mena Thompson NP-C) History of foot surgery History of tubal ligation History of cholecystectomy History of cardiac cath Family History Mother Heart disease Father Heart attack Social History Household Members: Family Household Members Other:: her mom Housing: House Do you presently have visiting nurse or other home services: No Alcohol intake: current Alcohol intake frequency: a few times a week Alcohol type: beer Patient Tobacco Use Status: Current everyday Tobacco user Tobacco use type: Cigarette Cigarette Packs Per Day: 1 Cigarettes Per Day: 20.0 Years Smoked: 40 +/- service: No Current occupational status: employed 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 Review of Systems Const All systems reviewed & are unremarkable except as noted in HPI and below ENT Denies dizziness Card Denies chest pain, Denies chest pain at rest, Denies chest pain with activity, Denies rapid heart rate, Denies pedal edema, Denies edema, Denies leg edema, Denies lightheadedness, Denies palpitations, Denies dyspnea, Denies dyspnea on exertion and Denies orthopnea Resp Denies cough, Denies dyspnea and Denies dyspnea on exertion GI Denies hematochezia and Denies change in stool character Musc Denies abnormal gait, Denies back pain, Denies limited range of motion, Denies muscle cramps, Denies muscle weakness, Denies numbness, Denies radiating pain into limb, Denies stiffness and Denies tingling Neuro Denies abnormal gait, Denies dizziness, Denies numbness and Denies tingling Endo Denies palpitations Physical Exam Vital Signs: Last Vital Signs Pulse 66 10/20/24 14:22 BP 112/62 10/20/24 14:22 BMI result Body Mass Index 33.4 Const General: cooperative, healthy appearing, comfortable and no acute distress Orientation/consciousness: patient oriented x3 Neck Neck: Yes normal visual inspection and Yes no JVD Resp Effort & Inspection: normal respiratory effort Auscultation: clear to auscultation bilaterally, no crackles, no rales, no rhonchi and no wheezes Cardio Rate: regular rate Rhythm: regular rhythm Heart sounds: S1 normal heart sound present, S2 normal heart sound present, no murmurs and no rubs Neuro General: patient oriented x3 Extrem General: Yes normal to inspection, No no pedal edema and No calf tenderness Psych Appearance: grossly normal Mental Status: mental status grossly normal Speech and movement: Normal speech and movement present Assessment & Plan Assessment & Plan (1) Non-ST elevation NV (NSTEMI): Code(s): I21.4 - Non-ST elevation (NSTEMI) myocardial infarction Category: Medical Plan: Episode of chest discomfort 07/2022 and ruled in for NSTEMI. Her echocardiogram initially showed EF 45-50%, anterior lateral, apical lateral segments hypokinetic. Troponins were elevated at greater than 3600. She was transferred to [facility] and underwent cardiac catheterization which showed only minimal luminal irregularities in the LAD, left circumflex and RCA. She was thought to have coronary vasospasm. She was put on isosorbide and amlodipine. She has done well since that time. A repeat echo showed normalization of EF and wall motion. Today she denies any anginal sounding symptoms. She has good activity tolerance. Will have her continue on current med management including aspirin, atorvastatin, amlodipine, isosorbide. She is also on lisinopril for good blood pressure control. Blood pressure today 112/62. Labs done 10/18/2024 showed LDL 99. Cardiac risk factor modification r eviewed. Increase physical activity as tolerated. Benefits a weight loss reviewed. Cardiology follow-up in 1 year, sooner if needed. (2) Coronary vasospasm: Code(s): I20.1 - Angina pectoris with documented spasm Category: Medical Plan: As above (3) Cardiomyopathy: Code(s): I42.9 - Cardiomyopathy, unspecified Category: Medical Plan: As above -resolved (4) Essential hypertension: Code(s): I10 - Essential (primary) hypertension Category: Medical Plan: Well controlled. No medication changes made. (5) High cholesterol: Code(s): E78.00 - Pure hypercholesterolemia, unspecified Category: Medical Plan: LDL goal less than 100, ideally less than 70. Most recent LDL is 99. She is on atorvastatin 80 mg daily. She is retiring in hopes to increase physical activity and work on weight loss. (6) History of cardiac cath: Comment: 08/04/2022, lad, left circumflex, RCA each with mild luminal irregularities, less than 30% stenosis Code(s): Z98.890 - Other specified postprocedural states Category: Surgical Plan: As above Plan Time spent on chart review, documentation, interview and assessment Coding Level of Care Code Est Pt Level 4 (60653) Complex EM visit Add On G2211 Diagnoses Non-ST elevation NV (NSTEMI) I21.4 Coronary vasospasm I20.1 Cardiomyopathy I42.9 Essential hypertension I10 High cholesterol E78.00 History of cardiac cath Z98.890 Time Spent (min) 32
--- OUTSIDE RECORDS SUMMARY | 2024-10-20 18:10 | XMS_ITS | Data Portability ---
Author Organization [place] - [facility], Allergy Address [address] [place] [id number] Care Team Providers Care Skilled Labor Name Role Phone BOBY DARLING Primary Care Provider Assessment Encounter Date Assessment Date Assessment LastModified [...] diagnos tic, 6 yrs or older [facility], [address] [place], [address], 4 09:57:46 Medication Orders None recorde d. [...] and Address Organization Details Recorded Time Snoring [id number] Active DOUGIE REYNOLDS PA-C [address] [facility],[place] [address], [place], [address], [facility] 4 10:43:23 Obstructive sleep apnea syndrome 39744814 Active DOUGIE REYNOLDS PA-C [address] [facility],[place] [address], [place], [address], [facility] 4 10:43:27 Problem Notes None recorded. Procedures [...] Updated DateTime 08/22/2024 170.18 cm 32.1 kg/m2 18947.44 g Maritza Elliott [place] [facility] 08/22/2024 10:35:39 Social History None recorded. Functional Status None recorded. Mental Status None recorded. Family History Nothing Reported. Medical History No medical history recorded. Gynecological HistoryNo gynecological history recorded. Obstetrics History GPAL:G 0 P 0 0 0 0 Past Encounters Encounter ID Performer Location Encounter Start Date Encounter Closed Date Diagnosis/Indication Diagnosis SNOMED-CT Code Diagnosis ICD10 Code Diagnosis Note [id number] DOUGIE REYNOLDS PA-C [facility] [address] [address] 08/22/2024 10:14:55 08/22/2024 10:44:54 Snoring 37116120 R06.83 Obstructiv e sleep apnea syndrome 59901381 G47.33 Health Concerns Section Related Observation LastModified by Organization Detai ls LastModified Time None Recorded Concern Status LastModified by Organization Details LastModified Time None Recorded Advance Directives Directive None Recorded Payers Encounter Date Sequence Insurance Name Policy Number Policy Fiore Covered Member ID Fiore Member ID Guarantor Name 08/22/[address] [place] [address] [id number] Joyce Boogie [id number] Joyce Boogie Notes Date Note Type Note [...] a mandibular advancement device. DOUGIE REYNOLDS PA-C [address] [place] [address],[place] [address], [place], [phone], [facility] 08/22/2024 11:09:44 OBGyn Episode No OBEpisode recorded.
== END 2024-10-20 14:58 | disposition home or self-care (01) ==
PROVIDERS: PCP Family Medicine; Visit Provider Nurse Practitioner Family
DX: I21.4 Non-ST elevation (NSTEMI) myocardial infarction (principal); I20.1 Angina pectoris with documented spasm; I42.9 Cardiomyopathy, unspecified; I10 Essential (primary) hypertension; E78.00 Pure hypercholesterolemia, unspecified; Z98.890 Other specified postprocedural states
CPT/HCPCS: 99214